=== PATIENT | female | born 1950 | race Caucasian/White ===

== ENCOUNTER 2021-03-14 13:00 | Outpatient (RCR) | payer MEDICARE, OTHER, SELFPAY | END 2021-03-14 14:00 | disposition home or self-care (01) | LOC: HO.PTCHIC 13:00 | PROVIDERS: PCP Internal Medicine; Visit Provider Internal Medicine | DX: M50.30 Other cervical disc degeneration, unspecified cervical region (principal); M51.36 Other intervertebral disc degeneration, lumbar region | CPT/HCPCS: 97110; 97112; 97140; 97162; 97530 ==

== ENCOUNTER → 2021-10-07 09:33 | Outpatient (BNVA) | payer MEDICARE, OTHER, SELFPAY | PROVIDERS: PCP Internal Medicine; Visit Provider Nurse Practitioner Family | DX: G56.03 Carpal tunnel syndrome, bilateral upper limbs (principal); G57.53 Tarsal tunnel syndrome, bilateral lower limbs; G62.9 Polyneuropathy, unspecified; R20.2 Paresthesia of skin; R41.3 Other amnesia | CPT/HCPCS: 99212 ==

== ENCOUNTER 2021-10-28 08:10 | Outpatient (REF) | payer MEDICARE, OTHER, SELFPAY ==
--- NOTE | ~2021-10-28 | MM_ITS ---
EXAMINATION: MM SCREENING DIGITAL BREAST TOMOSYNTHESIS, BILATERAL CLINICAL INFORMATION: Screening. Asymptomatic. The lifetime risk of breast cancer based on the Tyrer-Cuzick Model is 3%. COMPARISON: Mammography: 09/30/2019, 06/03/2017, 06/01/2015 TECHNIQUE: Digital breast tomosynthesis is performed in both the craniocaudal and mediolateral oblique views along with computer-aided detection (CAD). Synthesized 2D images are generated from the tomosynthesis. FINDINGS: There are scattered areas of fibroglandular density (ACR BI-RADS breast composition Category b). There are no significant masses, abnormal calcifications, or other abnormalities. Parenchymal pattern is similar to prior studies. No significant changes. MM/MM tomosynthesis screening BI IMPRESSION: No mammographic evidence of malignancy. ASSESSMENT: BI-RADS 1: Negative RECOMMENDATION: Routine annual mammography screening. This patient's information was entered into a reminder system with a target due date for their next mammogram.
== END 2021-10-28 08:11 | disposition home or self-care (01) ==
LOC: HO.MAMMO 08:10
PROVIDERS: PCP Internal Medicine; Visit Provider Internal Medicine
DX: Z12.31 Encounter for screening mammogram for malignant neoplasm of breast (principal)
CPT/HCPCS: 77063; 77067

== ENCOUNTER → 2022-01-06 10:36 | Outpatient (BNVA) | payer MEDICARE, OTHER, SELFPAY | PROVIDERS: PCP Internal Medicine; Visit Provider Nurse Practitioner Family | DX: G62.9 Polyneuropathy, unspecified (principal); R20.2 Paresthesia of skin; G57.53 Tarsal tunnel syndrome, bilateral lower limbs; R41.3 Other amnesia; Z79.899 Other long term (current) drug therapy | CPT/HCPCS: 99212 ==

== ENCOUNTER → 2022-05-17 14:30 | Outpatient (BNVA) | payer MEDICARE, OTHER, SELFPAY | PROVIDERS: PCP Internal Medicine; Visit Provider Nurse Practitioner Family | DX: G62.9 Polyneuropathy, unspecified (principal); G57.53 Tarsal tunnel syndrome, bilateral lower limbs; R20.2 Paresthesia of skin; J32.9 Chronic sinusitis, unspecified; Z79.899 Other long term (current) drug therapy; Z79.2 Long term (current) use of antibiotics | CPT/HCPCS: 99212 ==

== ENCOUNTER 2022-07-31 11:00 | Outpatient (RCR) | payer MEDICARE, OTHER, SELFPAY | END 2022-08-30 13:51 | disposition home or self-care (01) | LOC: HO.PTCHIC 11:00 | PROVIDERS: PCP Internal Medicine; Visit Provider Internal Medicine | DX: M25.551 Pain in right hip (principal) | CPT/HCPCS: 97033; 97110; 97140; 97161 ==

== ENCOUNTER → 2022-09-13 10:31 | Outpatient (BNVA) | payer MEDICARE, OTHER, SELFPAY | PROVIDERS: PCP Internal Medicine; Visit Provider Nurse Practitioner Family | DX: G62.9 Polyneuropathy, unspecified (principal); R53.83 Other fatigue; D64.9 Anemia, unspecified; Z79.899 Other long term (current) drug therapy | CPT/HCPCS: 99212 ==

== ENCOUNTER 2022-09-15 15:06 | Outpatient (REF) | payer MEDICARE, OTHER, SELFPAY ==
[2022-09-15 16:27] LABS: MANUAL DIFF FLAG NO
[2022-09-15 16:40] LABS: Basophils Absolute Auto 0.1 X10*3/uL (0.0-0.2); Basophils Percent Auto 0.8 % (0-2); Eosinophils Absolute Auto 0.2 X10*3/uL (0.0-0.4); Eosinophils Percent Auto 2.5 % (0-4); Hematocrit 39.1 % (37.0-47.0); Hemoglobin 12.9 g/dl (12.0-16.0); Imm Gran Abs Auto 0.02 X10*3/uL (0.00-0.03); Imm Gran Pct Auto 0.3 % (0.0-0.4); Lymphocytes Absolute Auto 1.7 X10*3/uL (1.2-4.9); Lymphocytes Percent Auto 27.5 % (20-40); Mean Corpuscular Hemoglobin 28.5 pg (27.0-33.0); Mean Corpuscular Volume 86.5 fL (80.0-98.0); Mean Platelet Volume 10.3 fL (9.4-12.3); Monocytes Absolute Auto 0.5 X10*3/uL (0.1-1.2); Monocytes Percent Auto 7.9 % (2-11); Neutrophils Absolute Auto 3.8 x10*3/uL (2.0-8.3); Platelet Count 207 X10*3/uL (160-400); Red Blood Count 4.52 X10*6/uL (4.20-5.50); Red Cell Distribution Width 12.7 % (11.0-16.0); White Blood Count 6.3 X10*3/uL (4.8-10.8)
[2022-09-15 16:58] LABS: Alanine Aminotransferase 18 U/L (0-31); Alkaline Phosphatase 64 U/L (39-117); Anion Gap 9 (12-20); Aspartate Amino Transferase 20 U/L (5-31); Bilirubin Total 0.4 mg/dL (0.0-1.0); Blood Urea Nitrogen 21 mg/dL (9-16); Calcium 8.6 mg/dL (8.4-10.2); Carbon Dioxide 30 mmol/L (22-29); Chloride 105 mmol/L (96-108); Estimated Glomerular Filt Rate > 60; Glucose Random 78 mg/dL (60-115); Iron 92 mcg/dL (30-160); Percent Iron Saturation 34 % (15-50); Potassium 4.4 mmol/L (3.3-5.1); Sodium 140 mmol/L (135-145); Total Iron Binding Capacity 274 mcg/dL (228-428); Total Protein 6.9 g/dL (6.5-8.0); Unsaturated Iron Binding 182 ug/dL
[2022-09-15 17:13] LABS: Ferritin 103 ng/mL (10-250)
[2022-09-19 11:43] LABS: Transferrin 236 mg/dL (188-341)
[2022-09-19 18:54] LABS: Lyme Abs Screen <0.90 index
== END 2022-09-15 15:07 | disposition home or self-care (01) ==
LOC: HO.HMGCLDS 15:06
PROVIDERS: PCP Internal Medicine; Visit Provider Nurse Practitioner Family
DX: G62.9 Polyneuropathy, unspecified (principal); D64.9 Anemia, unspecified; R53.83 Other fatigue
CPT/HCPCS: 36415; 80053; 82728; 83540; 84466; 85025; 86617; 86618

== ENCOUNTER 2022-10-19 11:00 | Outpatient (RCR) | payer MEDICARE, OTHER, SELFPAY | END 2022-10-19 12:15 | disposition home or self-care (01) | LOC: HO.PTCHIC 11:00 | PROVIDERS: PCP Internal Medicine; Visit Provider Internal Medicine | DX: M54.2 Cervicalgia (principal) | CPT/HCPCS: 97014; 97110; 97140; 97161 ==

== ENCOUNTER → 2023-01-12 11:34 | Outpatient (BNVA) | payer MEDICARE, OTHER, SELFPAY | PROVIDERS: PCP Internal Medicine; Visit Provider Nurse Practitioner Family | DX: G57.53 Tarsal tunnel syndrome, bilateral lower limbs (principal); R20.2 Paresthesia of skin; G56.03 Carpal tunnel syndrome, bilateral upper limbs; G47.9 Sleep disorder, unspecified | CPT/HCPCS: 99212 ==

== ENCOUNTER 2023-01-29 13:31 | Outpatient (REF) | payer MEDICARE, OTHER, SELFPAY ==
--- NOTE | ~2023-01-29 | MM_ITS ---
EXAMINATION: MM SCREENING DIGITAL BREAST TOMOSYNTHESIS, BILATERAL CLINICAL INFORMATION: Screening. Asymptomatic. The lifetime risk of breast cancer based on the Tyrer-Cuzick Model is 3%. COMPARISON: Mammography: 10/28/2021, 09/30/2019, 06/05/2017 TECHNIQUE: Digital breast tomosynthesis is performed in both the craniocaudal and mediolateral oblique views along with computer-aided detection (CAD). Synthesized 2D images are generated from the tomosynthesis. Additional left MLO view is provided. FINDINGS: There are scattered areas of fibroglandular density (ACR BI-RADS breast composition Category b). There are no significant masses, abnormal calcifications, or other abnormalities. There is small summation artifact central left breast on one of the MLO views. This resolves on the other MLO projection and no CC correlate. No developing density or architectural abnormality. The axilla and skin contours are unremarkable. MM/MM tomosynthesis screening BI IMPRESSION: No mammographic evidence of malignancy. ASSESSMENT: BI-RADS 2: Benign RECOMMENDATION: Routine annual mammography screening. This patient's information was entered into a reminder system with a target due date for their next mammogram.
== END 2023-01-29 13:32 | disposition home or self-care (01) ==
LOC: HO.MAMMO 13:31
PROVIDERS: PCP Internal Medicine; Visit Provider Internal Medicine
DX: Z12.31 Encounter for screening mammogram for malignant neoplasm of breast (principal)
CPT/HCPCS: 77063; 77067

== ENCOUNTER 2023-03-28 09:00 | Outpatient (RCR) | payer MEDICARE, OTHER, SELFPAY ==
--- NOTE | 2023-01-23 15:43 | MHC.PT.EP ---
[facility] [place] Office [place] Office [place] Office [address] Caden Motley [address] [phone] F: [phone] F: [phone] F: [phone] F: [phone] Physical Therapy Plan of Care Date of Evaluation: Date of Surgery: Diagnosis: POLYNEUROPATHY, TARSAL TUNNEL SYNDROME BILAT-> GAIT AND BALANCE Assessment: 72 YO FEMALE REF TO PT W TARSAL TUNNEL AND POLYNEUROPATHY- SHE HAS ORTHOTICS AND SUPPORTIVE FOOTWEAR AND NOTES HER WEAR PATTERN INCLUDES FRICTION / FABRIC EROSION OVER GREAT TOES. SHE HAS BEEN UNABLE TO FITNESS WALK AT HER REGULAR PACE, DIFFIC W STAIR MANAGEMENT, SQUATTING- LEs SXS WORSE AT NIGHT. OBJECTIVELY, THE Pt HAS HABITUAL GENU VALGUS, PELVIC ASYMMETRY, DECR FLEXIB IN DISTAL LEs, STRENGTH DEFICITS IN LUMBOPELVIC/PROX LEs/ FOOT INTRINSIC MM, AND PAIN IN HER. Pt WOULD BENEFIT FROM A TRIAL OF PT TO DEV A HEP, INCREASE LUMBOPELVIC STABILITY, AND IMPROVE EFFICIENCY OF GAIT ON LEVEL GROUND AND STAIRS. Frequency and Duration: The patient will be seen 2 x WK x 5 WKS Short Term Goals: *IMPROVE MACHELLE GREAT TOE FLEXOR AND FOOT INTRINSIC STRENGTH *DEV HEP FOR LUMBOPELVIC STAB, REDUCE LLI EFFECT *DECR Rt HIP PAIN Halfway Goals: *Pt DEMON EFFICENT GAIT MECH ON LEVEL GROUND AND STAIRS *Pt RESUME REG ADLs AND FUNCT MOB/ FITNESS WALKING EVIDENT IN IMPROVED LEFI (AT EVAL 49/80) *WFL AROM MACHELLE ANKLES , IMPROVED SLS MACHELLE 15 SEC *LEs STRENGTH INCR BY 1/2-> 1 GRADE Treatment Plan: Modalities to reduce pain, spasms and effusion. Manual therapy to restore motion and function. Therapeutic exercise to improve strength and flexibility. Neuromuscular re-education for posture and balance. Therapeutic activities to return to functional activities of daily living. Electronically signed by: CSOUT MONGE,PT Please sign and return to therapist. Thank you for your referral.
--- NOTE | 2023-05-10 08:33 | MHC.PT.DC ---
[facility] [place] Office [place] Office [place] Office [address] Caden Motley 140 [facility] [phone] F: [phone] F: [phone] F: [phone] F: [phone] Physical Therapy Discharge Report Diagnosis: POLYNEUROPATHY, TARSAL TUNNEL SYNDROME BILAT-> GAIT AND BALANCE Date of Surgery: Date of Evaluation: 01/23/23 Date of Discharge: 05/10/23 Treatments to Date: 10 Cancellations to Date: 2 No Shows to Date: 1 Discharge Status: Achieved Goals Improved Function Independent with HEP Discharge Summary: THE Pt DEMON IMPROVED LUMBOPELVIC DISSOCIATION CURRENTLY W ADLs AND HER HEP. SHE HAS A THOROUGH HEP AND HAS BEEN ABLE TO RESUME REG ADLs W/O SXS IMPACTING HER PERFORMANCE. SHE DISPLAYS MORE EFFICIENT GAIT MECHANICS. THE Pt HAS MET HER PT GOALS AT THIS TIME AND IS D/C'D W HER HEP. Electronically signed by: SCOUT MONGE,PT Please sign and return to therapist. Thank you for your referral.
== END 2023-05-10 08:35 | disposition home or self-care (01) ==
LOC: HO.PT 09:00
PROVIDERS: PCP Internal Medicine; Visit Provider Nurse Practitioner Family
DX: G62.9 Polyneuropathy, unspecified (principal); R20.2 Paresthesia of skin; G57.53 Tarsal tunnel syndrome, bilateral lower limbs
CPT/HCPCS: 97110; 97112; 97162; 97530

== ENCOUNTER 2023-04-11 08:13 | Outpatient (AMB) | payer MEDICARE, OTHER, SELFPAY ==
[2023-04-11 08:15] VITALS: BP 112/78; PULSE 67; O2SAT 97; BMI 25.4
--- NOTE | 2023-04-11 08:15 | MHC.OFFVIS ---
Intake Vital Signs 04/11/23 08:15 Height 5 ft 6 in Weight 157 lb 8 oz BMI 25.4 BP 112/78 Blood Pressure Location Rt brachial Position Sitting Pulse 67 Pulse Source Pulse Oximeter Pulse Oximetry (%) 97 Oxygen Delivery Method Room Air Intake Visit Reasons: Follow up for Neuropathy - Confirmed Intake Note: Pt presents as a f/u for neuropathy. I had some problems sunday night I couldn't remember things. I had an MRI sunday night. I have trouble with the Gabapentin so I have to talk to her. Neuropathy is going up higher now, I have shortness of breath. [employer] Required: No Allergies Gadolinium-Containing Contrast Medi Allergy (Intermediate, Verified 04/11/23 08:20) heart racing Latex, Natural Rubber Allergy (Mild, Verified 04/11/23 08:20) unknown amoxicillin [Amoxicillin] Allergy (Unknown, Verified 04/11/23 08:20) ITCH/HIVES erythromycin base [Erythromycin Base] Allergy (Unknown, Verified 04/11/23 08:20) ITCH/HIVES eugenol [Eugenol] Allergy (Unknown, Verified 04/11/23 08:20) HEART RACING/FAINTING levofloxacin [From Levaquin] Allergy (Unknown, Verified 04/11/23 08:20) ITCHING penicillin G [Penicillin G] Allergy (Unknown, Verified 04/11/23 08:20) ITCH/HIVES sulfamethoxazole [From Bactrim] Allergy (Unknown, Verified 04/11/23 08:20) ITCH/HIVES trimethoprim [From Bactrim] Allergy (Unknown, Verified 04/11/23 08:20) ITCH/HIVES epinephrine [Epinephrine] Adverse Reaction (Unknown, Verified 04/11/23 08:20) TACHYCARDIA, FEELING FAINT From Novocain Adverse Reaction (Unknown, Uncoded 04/11/23 08:20) TACHYCARDIA, FEELING FAINT HPI HPI Comments History of Present Illness Details 72-yr-old female presents for f/u visit. Pt endorses the following interval medical history changes: Pt reports a week ago, she had a 20 minute episode of confusion, difficulty thinking, and started to have a headache. She denies any associated facial weakness or speech changes. After the episode, she laid down, was not feel well and weird - not nauseous. No fever. The following day, she connected with her PCP- who ordered a brain MRI- results pending. She notes that she has been having more ehadcahes- a/w phonophobia. The headache is mid-frontal or bifrontal- can feel like a band across her forehead. Using Tylenol prn- helps some. She recalls that few years ago, she had a 1 week episode of aphasia- that self-resolved. She did retry the Gabapentin 200mg- but caused significant am drowsiness- slept through her alarm and was late for an 11am appt. PT was helpful for her balance. She will do PT for pelvic training and continues to have right aching groin/buttock pain when walking. She did also see ortho for this. Her BLE neuropathic pain has moved up the legs to the knees. [facility] Medical History Anemia H/O malignant neoplasm of thyroid Surgical History H/O total hysterectomy History of knee replacement Hx of appendectomy Hx of cholecystectomy Family History (Updated 04/11/23 @ 08:23 by Lauryn Canales CMA) Father Myocardial infarction Stroke Mother Cancer Brother Diabetes Brother Diabetes Social History (Updated 04/11/23 @ 08:24 by Lauryn Canales CMA) Alcohol intake: current Alcohol intake frequency: 0-2 drinks per day Patient Tobacco Use Status: Never used Tobacco Review of Systems Const All systems reviewed & are unremarkable except as noted in HPI and below Physical Exam Vital Signs: Last Vital Signs Pulse 67 04/11/23 08:15 BP 112/78 04/11/23 08:15 Pulse Ox 97 04/11/23 08:15 Oxygen Delivery Method Room Air 04/11/23 08:15 BMI result Body Mass Index 25.4 Const General: cooperative and no acute distress Orientation/consciousness: patient oriented x3 HEENT Head: Yes normocephalic Resp Effort & Inspection: normal respiratory effort and able to speak in complete sentences Neuro General: patient oriented x3, gait normal and CN's II-XI intact bilaterally Cognition (Neuro): normal cognition Motor exam (neuro): 5/5 motor strength present throughout Deep tendon reflexes (DTR's): Right triceps reflex intensity grade: 2+, Left triceps reflex intensity grade: 2+, Rt Biceps (C5, C6): 2+, Left biceps reflex intensity grade: 2+, Right brachioradialis reflex intensity grade: 2+, Left brachioradialis reflex intensity grade: 2+, Right patellar reflex intensity grade: 2+ and Left patellar reflex intensity grade: 2+ Psych Appearance: grossly normal Mental Status: mental status grossly normal Speech and movement: Normal speech and movement present Affect: normal affect Attitude: cooperative Thought process: Normal thought process present Thought content: Normal thought content present Insight: Good insight present (Psych) Judgement: Good judgement present (Psych) Assessment & Plan Assessment & Plan (1) Altered mental status: Comment: Transient 20 minutes of confusion- ? headache onset, ? 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 Will review when available. No focal neuro deficits appreciated today. BP- normotensive. If no interval MRI changes, no evidence of CVA- could consider trying a gepant for headache (? migraine) management. May use Tylenol prn for headache. Consider trying to use OTC B2, Mag, migraine cooling cap- info given to pt. Continue Fluvoxamine 50 mg qhs- for anxiety. Continue Xanax 0.5-1mg qhs, may take 1 extra tab per day prn. Hold Gabapentin 100-mg not effective, 200mg not tolerated. Offered pregabalin- pt decliens. Offered ortho referral for trasal tunnel syndrome- pt declines. Continue PT exercises. Monitor nocturnal body pains- RLS s/s- could consider Lyrica, Horizant in f/u. Previously failed? Cymbalta. f/u in 3-4 months or sooner prn Coding Level of Care Code Est Pt Level 4 (16188) Diagnoses Altered mental status R41.82 Polyneuropathy G62.9 Tarsal tunnel syndrome, bilateral G57.53 Headache R51.9
== END 2023-04-11 09:00 | disposition home or self-care (01) ==
PROVIDERS: PCP Internal Medicine; Visit Provider Nurse Practitioner Family
DX: R41.82 Altered mental status, unspecified (principal); G62.9 Polyneuropathy, unspecified; G57.53 Tarsal tunnel syndrome, bilateral lower limbs; R51.9 Headache, unspecified
CPT/HCPCS: 99214

== ENCOUNTER → 2023-04-11 08:13 | Outpatient (BNVA) | payer MEDICARE, OTHER, SELFPAY | PROVIDERS: PCP Internal Medicine; Visit Provider Nurse Practitioner Family | DX: G62.9 Polyneuropathy, unspecified (principal); G57.53 Tarsal tunnel syndrome, bilateral lower limbs; R41.82 Altered mental status, unspecified; R51.9 Headache, unspecified | CPT/HCPCS: 99212 ==

== ENCOUNTER 2023-07-17 08:36 | Outpatient (AMB) | payer MEDICARE, OTHER, SELFPAY ==
--- NOTE | 2023-07-17 08:43 | MHC.OFFVIS ---
Intake Vital Signs 07/17/23 08:45 Height 5 ft 6 in Weight 159 lb BMI 25.7 BP 124/72 Blood Pressure Location Rt brachial Position Sitting Pulse 60 Pulse Source Pulse Oximeter Pulse Oximetry (%) 98 Oxygen Delivery Method Room Air Intake Visit Reasons: 3m Follow up Neuropathy-Confirmed Intake Note: Patient present for 3 month follow up. Patient states I just want to ask her about the pain going up to my knees now. Allergies Gadolinium-Containing Contrast Medi Allergy (Intermediate, Verified 07/17/23 08:46) heart racing Latex, Natural Rubber Allergy (Mild, Verified 07/17/23 08:46) unknown amoxicillin [Amoxicillin] Allergy (Unknown, Verified 07/17/23 08:46) ITCH/HIVES erythromycin base [Erythromycin Base] Allergy (Unknown, Verified 07/17/23 08:46) ITCH/HIVES eugenol [Eugenol] Allergy (Unknown, Verified 07/17/23 08:46) HEART RACING/FAINTING levofloxacin [From Levaquin] Allergy (Unknown, Verified 07/17/23 08:46) ITCHING penicillin G [Penicillin G] Allergy (Unknown, Verified 07/17/23 08:46) ITCH/HIVES sulfamethoxazole [From Bactrim] Allergy (Unknown, Verified 07/17/23 08:46) ITCH/HIVES trimethoprim [From Bactrim] Allergy (Unknown, Verified 07/17/23 08:46) ITCH/HIVES epinephrine [Epinephrine] Adverse Reaction (Unknown, Verified 07/17/23 08:46) TACHYCARDIA, FEELING FAINT From Novocain Adverse Reaction (Unknown, Uncoded 07/17/23 08:46) TACHYCARDIA, FEELING FAINT Medication List - Last Reconciled 07/17/23 by JEREMY Russell albuterol sulfate 90 mcg/actuation (ProAir HFA) 2 puffs inhalation Q6H PRN alprazolam (Xanax) 0.5 - 1 mg (1 - 2 x 0.5 mg) PO BEDTIME PRN 30 days cyanocobalamin (vitamin B-12) 1,000 mcg PO DAILY epinephrine 0.3 mg IM Q4H PRN esomeprazole magnesium (Nexium) 20 mg PO BEDTIME famotidine 20 mg PO DAILY fluticasone propionate 50 mcg/actuation (Flonase Allergy Relief) 1 spray intranasal DAILY fluvoxamine 50 mg PO DAILY gabapentin 100 - 300 mg (1 - 3 x 100 mg) PO BEDTIME 90 days ketotifen fumarate 0.025%(0.035%) (Allergy Eye (ketotifen)) 1 drp ophthalmic (eye) BID levocetirizine (Xyzal) 5 mg PO DAILY levothyroxine (Synthroid) 88 mcg PO DAILY metoprolol succinate ER 50 mg PO DAILY tretinoin 0.05% 1 appl topical BEDTIME HPI HPI Comments History of Present Illness Details 73-yr-old female presents for f/u visit. Pt reports she had a recent stress test and her recent lipid profile and HgA1C (6%) were elevated- has f/u w/ Dr Vaca to discuss. She thinks her right carpal tunnel syndrome is getting worse- pt thinks maybe she will have to have a CTS repair next year. She still has random sharp pains. She is having burning BLE pain, moving up the leg. No weakness. Feeling more tired overall- wonders if this is r/t mood and stress. Her dtr who lives w/ her has agreed to start therapy. Pt reports that she has been having nights where she does not sleep at all, but then other nights she can sleep well. Denies any episodes of altered mental status. No longer taking Gabapentin- believes it causes confusion. [facility] Medical History Anemia H/O malignant neoplasm of thyroid Surgical History Hx of cholecystectomy Hx of appendectomy History of knee replacement H/O total hysterectomy Family History Father Myocardial infarction Stroke Mother Cancer Brother Diabetes Brother Diabetes Social History Alcohol intake: current Alcohol intake frequency: 0-2 drinks per day Patient Tobacco Use Status: Never used Tobacco Review of Systems Const All systems reviewed & are unremarkable except as noted in HPI and below Physical Exam Vital Signs: Last Vital Signs Pulse 60 07/17/23 08:45 BP 124/72 07/17/23 08:45 Pulse Ox 98 07/17/23 08:45 Oxygen Delivery Method Room Air 07/17/23 08:45 BMI result Body Mass Index 25.7 Const General: cooperative and no acute distress Orientation/consciousness: patient oriented x3 HEENT Head: Yes normocephalic Resp Effort & Inspection: normal respiratory effort and able to speak in complete sentences Neuro General: patient oriented x3, gait normal and CN's II-XI intact bilaterally Cognition (Neuro): normal cognition Motor exam (neuro): 5/5 motor strength present throughout Psych Appearance: grossly normal Mental Status: mental status grossly normal Speech and movement: Normal speech and movement present Affect: normal affect Attitude: cooperative Thought process: Normal thought process present Thought content: Normal thought content present Insight: Good insight present (Psych) Judgement: Good judgement present (Psych) Assessment & Plan Assessment & Plan (1) 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 Likely RLS. Code(s): R20.2 - Paresthesia of skin Plan Advised to monitor diet and f/u w/ Dr Vaca r/t elevated lipids, borderline HgA1C, and stress test. Brain MRI- scattered nonspecific periventricular and subcortical white matter cahnges, likely chronic microangiopathic changes. Monitor headaches. May use Tylenol prn for headache. Continue Fluvoxamine 50 mg qhs- for anxiety. Continue Xanax 0.5-1mg qhs, may take 1 extra tab per day prn. Trial Alpha-Lipoic acid 600mg qd or Nervive 1 tab per day. Continue PT exercises. Monitor nocturnal body pains- RLS s/s- could consider Lyrica, Horizant in f/u. Future consideration- ortho referral for carpal/tarsal tunnel syndrome- pt previously declined. Previously failed? Cymbalta, Gabapentin. ? f/u in 4 months or sooner prn Medications: New alpha lipoic acid 600 mg PO DAILY 30 days 30 tabs 6RF Refilled alprazolam (Xanax) and may take 1 extra tab per day prn anxiety 0.5 - 1 mg (1 - 2 x 0.5 mg) PO BEDTIME 30 days PRN 90 tabs 3RF anxiety Discontinued gabapentin Discontinued Reason: Doctor's Order 100 - 300 mg (1 - 3 x 100 mg) PO BEDTIME 90 days 270 caps 1RF Coding Level of Care Code Est Pt Level 4 (91382) Diagnoses Polyneuropathy G62.9 Bilateral carpal tunnel syndrome G56.03 Paresthesia R20.2
[2023-07-17 08:45] VITALS: BP 124/72; PULSE 60; O2SAT 98; BMI 25.7
== END 2023-07-17 09:22 | disposition home or self-care (01) ==
PROVIDERS: PCP Internal Medicine; Visit Provider Nurse Practitioner Family
DX: G62.9 Polyneuropathy, unspecified (principal); G56.03 Carpal tunnel syndrome, bilateral upper limbs; R20.2 Paresthesia of skin
CPT/HCPCS: 99214

== ENCOUNTER → 2023-07-17 08:36 | Outpatient (BNVA) | payer MEDICARE, OTHER, SELFPAY | PROVIDERS: PCP Internal Medicine; Visit Provider Nurse Practitioner Family | DX: G62.9 Polyneuropathy, unspecified (principal); G56.03 Carpal tunnel syndrome, bilateral upper limbs; R20.2 Paresthesia of skin | CPT/HCPCS: 99212 ==

== ENCOUNTER 2023-09-18 09:00 | Outpatient (RCR) | payer MEDICARE, OTHER, SELFPAY | END 2023-10-18 09:09 | disposition home or self-care (01) | LOC: HO.PT 09:00 | PROVIDERS: PCP Internal Medicine; Visit Provider Internal Medicine Gastroenterology | DX: R10.31 Right lower quadrant pain (principal) | CPT/HCPCS: 97033; 97110; 97112; 97140; 97162 ==

== ENCOUNTER 2024-01-09 10:59 | Outpatient (AMB) | payer MEDICARE, OTHER, SELFPAY ==
--- NOTE | 2024-01-09 11:03 | MHC.OFFVIS ---
Vital Signs 01/09/24 11:04 BP 120/72 Blood Pressure Location Rt brachial Position Sitting Pulse 78 Pulse Source Pulse Oximeter Pulse Oximetry (%) 98 Oxygen Delivery Method Room Air Intake Visit Reasons: 6 mnts f/u for Neuropathy-Conf Intake Note: Patient presents for 6 month follow up neuropathy. patient has some questions for provider. Allergies Gadolinium-Containing Contrast Medi Allergy (Intermediate, Verified 01/09/24 11:09) heart racing Latex, Natural Rubber Allergy (Mild, Verified 01/09/24 11:09) unknown amoxicillin [Amoxicillin] Allergy (Unknown, Verified 01/09/24 11:09) ITCH/HIVES erythromycin base [Erythromycin Base] Allergy (Unknown, Verified 01/09/24 11:09) ITCH/HIVES eugenol [Eugenol] Allergy (Unknown, Verified 01/09/24 11:09) HEART RACING/FAINTING levofloxacin [From Levaquin] Allergy (Unknown, Verified 01/09/24 11:09) ITCHING penicillin G [Penicillin G] Allergy (Unknown, Verified 01/09/24 11:09) ITCH/HIVES sulfamethoxazole [From Bactrim] Allergy (Unknown, Verified 01/09/24 11:09) ITCH/HIVES trimethoprim [From Bactrim] Allergy (Unknown, Verified 01/09/24 11:09) ITCH/HIVES epinephrine [Epinephrine] Adverse Reaction (Unknown, Verified 01/09/24 11:09) TACHYCARDIA, FEELING FAINT From Novocain Adverse Reaction (Unknown, Uncoded 01/09/24 11:09) TACHYCARDIA, FEELING FAINT Medication List - Last Reconciled 01/09/24 by JEREMY Russell albuterol sulfate 90 mcg/actuation (ProAir HFA) 2 puffs inhalation Q6H PRN alpha lipoic acid 600 mg PO DAILY 30 days alprazolam (Xanax) 0.5 - 1 mg (1 - 2 x 0.5 mg) PO BEDTIME PRN 30 days cyanocobalamin (vitamin B-12) 1,000 mcg PO DAILY epinephrine 0.3 mg IM Q4H PRN esomeprazole magnesium (Nexium) 20 mg PO BEDTIME famotidine 20 mg PO DAILY fluticasone propionate 50 mcg/actuation (Flonase Allergy Relief) 1 spray intranasal DAILY fluvoxamine 50 mg PO DAILY hydralazine 10 mg PO DAILY ketotifen fumarate 0.025%(0.035%) (Allergy Eye (ketotifen)) 1 drp ophthalmic (eye) BID levocetirizine (Xyzal) 5 mg PO DAILY levothyroxine (Synthroid) 88 mcg PO DAILY metoprolol succinate ER 50 mg PO DAILY tretinoin 0.05% 1 appl topical BEDTIME HPI Comments Details: 73-yr-old female presents for f/u visit. Pt reports since the last visit, She started a high fiber diet to address her prediabetes and elevated lipid levels. She had an intentional weight loss. However, then she started having loose stools, abdominal cramps, and further unintentional wt loss. She was tx'd w/ po Flagyl- which she did not tolerate. She has seen GI and has had a GI work-up- so far unremarkable other than diverticulosis. She is scheduled for a colonoscopy. Also her TSH decreased from 1.33 at [facility] in Sep 2023 to 0.13 at [facility]- and her Levothyroxine dose has been adjusted. Pt shared her lab results from GI- vit A, B12, folate, ferritin, Mag CBC, CMP, lipase- NL. States Dr Vaca did just start her on hydralazine. She is not sleeping as well, having nightmares of [employer], waking up sweaty. She is very fatigued. She states her restless legs are a bit better. However, she notices that if someone touches her, she has a cold sensation overcome her. 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 She feels cold all the time. Her hands may feel more bothersome weakness and discomfort in her hands. [facility] Medical History Anemia H/O malignant neoplasm of thyroid Surgical History Hx of cholecystectomy Hx of appendectomy History of knee replacement H/O total hysterectomy Family History Father Myocardial infarction Stroke Mother Cancer Brother Diabetes Brother Diabetes Social History Alcohol intake: current Alcohol intake frequency: 0-2 drinks per day Patient Tobacco Use Status: Never used Tobacco Physical Exam Vital Signs: Last Vital Signs Pulse 78 01/09/24 11:04 BP 120/72 01/09/24 11:04 Pulse Ox 98 01/09/24 11:04 Oxygen Delivery Method Room Air 01/09/24 11:04 Const General: cooperative and no acute distress Orientation/consciousness: patient oriented x3 Resp Effort & Inspection: normal respiratory effort and able to speak in complete sentences Neuro General: patient oriented x3 Cranial nerves: Yes CN's II-XII intact bilaterally Cognition (Neuro): normal cognition Psych Appearance: grossly normal Mental Status: mental status grossly normal Speech and movement: Normal speech and movement present Affect: normal affect Attitude: cooperative Assessment & Plan Assessment & Plan (1) Paresthesia: Comment: generalized, at rest/night. Likely RLS. 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 May use Tylenol prn for headache. ? Continue Fluvoxamine 50 mg qhs- for anxiety. Continue Xanax 0.5-1mg qhs, may take 1 extra tab per day prn. ? She never started Alpha-Lipoic acid 600mg qd or Nervive 1 tab per day- would hold as this time, as there is risk for side effects. Continue PT exercises. Monitor nocturnal body pains- RLS s/s- could consider Lyrica, Horizant in f/u. When her GI s/s and TSH has stabilized- ortho referral for carpal/tarsal tunnel syndrome.. Previously failed?Cymbalta, Gabapentin. ? f/u in 6 months or sooner prn Coding Level of Care Code Est Pt Level 4 (36302) Diagnoses Paresthesia R20.2 Bilateral carpal tunnel syndrome G56.03 Sleep difficulties G47.9 Polyneuropathy G62.9
[2024-01-09 11:04] VITALS: BP 120/72; PULSE 78; O2SAT 98
== END 2024-01-09 12:15 | disposition home or self-care (01) ==
PROVIDERS: PCP Internal Medicine; Visit Provider Nurse Practitioner Family
DX: R20.2 Paresthesia of skin (principal); G56.03 Carpal tunnel syndrome, bilateral upper limbs; G47.9 Sleep disorder, unspecified; G62.9 Polyneuropathy, unspecified
CPT/HCPCS: 99214

== ENCOUNTER → 2024-01-09 10:59 | Outpatient (BNVA) | payer MEDICARE, OTHER, SELFPAY | PROVIDERS: PCP Internal Medicine; Visit Provider Nurse Practitioner Family | DX: G47.9 Sleep disorder, unspecified (principal); G62.9 Polyneuropathy, unspecified; G56.03 Carpal tunnel syndrome, bilateral upper limbs; R20.2 Paresthesia of skin | CPT/HCPCS: 99212 ==

== ENCOUNTER 2024-02-04 11:13 | Outpatient (REF) | payer MEDICARE, OTHER, SELFPAY ==
--- NOTE | ~2024-02-04 | MM_ITS ---
EXAMINATION: MM SCREENING DIGITAL BREAST TOMOSYNTHESIS, BILATERAL CLINICAL INFORMATION: Screening. Asymptomatic. COMPARISON: Mammography: 01/29/2023, 10/28/2021, 09/30/2019, 06/05/2017. TECHNIQUE: Digital breast tomosynthesis is performed in both the craniocaudal and mediolateral oblique views along with computer-aided detection (CAD). Synthesized 2D images are generated from the tomosynthesis. An additional right MLO view was submitted. FINDINGS: There are scattered areas of fibroglandular density (ACR BI-RADS breast composition Category b). There are no suspicious masses, suspicious grouped calcifications, or areas of architectural distortion in either breast. The parenchymal pattern is stable from prior exams. No suspicious skin or axillary abnormalities. MM/MM tomosynthesis screening BI IMPRESSION: No mammographic evidence of malignancy. ASSESSMENT: BI-RADS BI-RADS 1 - Negative RECOMMENDATION: Routine annual mammography screening. 1 year F/U This examination should not preclude the clinical evaluation of a suspicious palpable abnormality. This patient's information was entered into a reminder system with a target due date for their next mammogram.
== END 2024-02-04 11:14 | disposition home or self-care (01) ==
LOC: HO.MAMMO 11:13
PROVIDERS: PCP Internal Medicine; Visit Provider Internal Medicine
DX: Z12.31 Encounter for screening mammogram for malignant neoplasm of breast (principal)
CPT/HCPCS: 77063; 77067

== ENCOUNTER → 2024-02-04 11:15 | Outpatient (BNV) | payer MEDICARE, OTHER, SELFPAY | PROVIDERS: PCP Internal Medicine; Visit Provider Radiology Diagnostic Radiology | DX: Z12.31 Encounter for screening mammogram for malignant neoplasm of breast (principal) | CPT/HCPCS: 77063; 77067 ==

== ENCOUNTER 2024-07-16 10:00 | Outpatient (AMB) | payer MEDICARE, OTHER, SELFPAY ==
[2024-07-16 10:03] VITALS: BP 138/82; BMI 20.9
--- NOTE | 2024-07-16 10:03 | MHC.OFFVIS ---
Vital Signs 07/16/24 10:03 Height 5 ft 6 in Weight 129 lb 4 oz BMI 20.9 BP 138/82 Blood Pressure Location Rt brachial Position Sitting Intake Visit Reasons: 6 Month F/U Intake Note: Patient presents for 6 month follow up.I have chronic chills always feeling cold. restless legs have gotten better. Allergies Gadolinium-Containing Contrast Medi Allergy (Intermediate, Verified 07/16/24 10:12) heart racing Latex, Natural Rubber Allergy (Mild, Verified 07/16/24 10:12) unknown amoxicillin [Amoxicillin] Allergy (Unknown, Verified 07/16/24 10:12) ITCH/HIVES erythromycin base [Erythromycin Base] Allergy (Unknown, Verified 07/16/24 10:12) ITCH/HIVES eugenol [Eugenol] Allergy (Unknown, Verified 07/16/24 10:12) HEART RACING/FAINTING levofloxacin [From Levaquin] Allergy (Unknown, Verified 07/16/24 10:12) ITCHING penicillin G [Penicillin G] Allergy (Unknown, Verified 07/16/24 10:12) ITCH/HIVES sulfamethoxazole [From Bactrim] Allergy (Unknown, Verified 07/16/24 10:12) ITCH/HIVES trimethoprim [From Bactrim] Allergy (Unknown, Verified 07/16/24 10:12) ITCH/HIVES epinephrine [Epinephrine] Adverse Reaction (Unknown, Verified 07/16/24 10:12) TACHYCARDIA, FEELING FAINT From Novocain Adverse Reaction (Unknown, Uncoded 07/16/24 10:12) TACHYCARDIA, FEELING FAINT HPI Comments Details: 74-yr-old female presents for f/u visit of neuralgia and RLS.. Since the last visit, she lost her . She is trying to cope- having varying emotions. She notes changes in her roles/responsibilities, though her son who [place] is helping. She does think maybe she should see a grief counselor. Using Xanax prn for anxiety. She has continued to lose weight. She had f/u CT and colonoscopy and which per pt showed tortuous colon. Was advised to avoid all fiber, just liquid diet for now. GI was wanted her to re-try Flagyl. She had recent abd CT, which showed possible diverticulitis. She has been on a liquid diet. She believes her thyroid level is stabilized. She is noticing some right wrist pain, swelling, and some weakness triggered by trying to clean out the books in her house- still uses her wrist splints at night. She states she is sleeping ok- except when she has to void. She states her restless legs are still a bit better. However, she notices that if she or someone touches her, she has a cold sensation/shivers overcome her. 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 Has not been taking her Xysail Her feet are always cold. PFSH Medical History Anemia H/O malignant neoplasm of thyroid Surgical History Hx of cholecystectomy Hx of appendectomy History of knee replacement H/O total hysterectomy Family History Father Myocardial infarction Stroke Mother Cancer Brother Diabetes Brother Diabetes Social History Alcohol intake: current Alcohol intake frequency: 0-2 drinks per day Patient Tobacco Use Status: Never used Tobacco Physical Exam Vital Signs: Last Vital Signs BP 138/82 07/16/24 10:03 BMI result Body Mass Index 20.9 Const General: cooperative and no acute distress Orientation/consciousness: patient oriented x3 Resp Effort & Inspection: normal respiratory effort and able to speak in complete sentences Neuro Other: Right distal forearm, mild swelling and tenderness w/o erythema/discoloration. RUE MS 5/5. General: patient oriented x3 Cranial nerves: Yes CN's II-XII intact bilaterally Cognition (Neuro): normal cognition Psych Appearance: grossly normal Mental Status: mental status grossly normal Speech and movement: Normal speech and movement present Affect: normal affect Attitude: cooperative Assessment & Plan Assessment & Plan (1) Paresthesia: Comment: generalized, at rest/night. Likely RLS. 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 Continue Fluvoxamine 50 mg qhs- for anxiety. Continue Xanax 0.5-1mg qhs, may take 1 extra tab per day prn. ? For right wrist pain- Likely overuse injury. Trial diclofenac 1% gel QID prn. Use carpal tunnel splints qhs and prn during the day. Advsied to rest, ice, and elevate RUE. 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 When her GI s/s and TSH has stabilized- ortho referral for carpal/tarsal tunnel syndrome.. Future considerations: Alpha-Lipoic acid, Lyrica, Horizant in f/u. Previous trails: ?Cymbalta, Gabapentin. For headaches: May use Tylenol prn for headache. ? f/u in 4-6 months or sooner prn Medications: New diclofenac sodium 1% (Voltaren Arthritis Pain) apply to right wrist 4 grams topical QID PRN 100 grams 2RF pain 7 days Refilled alprazolam (Xanax) and may take 1 extra tab per day prn anxiety 0.5 - 1 mg (1 - 2 x 0.5 mg) PO BEDTIME PRN 90 tabs 3RF anxiety 30 days Coding Level of Care Code Est Pt Level 4 (92629) Diagnoses Paresthesia R20.2 Bilateral carpal tunnel syndrome G56.03 Sleep difficulties G47.9 Polyneuropathy G62.9
== END 2024-07-16 11:11 | disposition home or self-care (01) ==
LOC: HO.HSMS 10:01
PROVIDERS: PCP Internal Medicine; Visit Provider Nurse Practitioner Family
DX: R20.2 Paresthesia of skin (principal); G56.03 Carpal tunnel syndrome, bilateral upper limbs; G47.9 Sleep disorder, unspecified; G62.9 Polyneuropathy, unspecified
CPT/HCPCS: 99214

== ENCOUNTER → 2024-07-16 10:00 | Outpatient (BNVA) | payer MEDICARE, OTHER, SELFPAY | PROVIDERS: PCP Internal Medicine; Visit Provider Nurse Practitioner Family | DX: G25.81 Restless legs syndrome (principal); G62.9 Polyneuropathy, unspecified; R20.2 Paresthesia of skin; G56.03 Carpal tunnel syndrome, bilateral upper limbs | CPT/HCPCS: 99212 ==

== ENCOUNTER 2025-02-10 13:56 | Outpatient (AMB) | payer MEDICARE, OTHER, SELFPAY ==
[2025-02-10 14:07] VITALS: BP 120/60; PULSE 67; O2SAT 96; BMI 21.9
--- NOTE | 2025-02-10 14:07 | MHC.OFFVIS ---
Vital Signs 02/10/25 14:07 Height 5 ft 6 in Weight 136 lb BMI 21.9 BP 120/60 Blood Pressure Location Lt brachial Pulse 67 Pulse Source Pulse Oximeter Pulse Oximetry (%) 96 Oxygen Delivery Method Room Air Intake Visit Reasons: follow up Mailing Clerk Required: No Allergies Gadolinium-Containing Contrast Medi Allergy (Intermediate, Verified 02/10/25 14:08) heart racing Latex, Natural Rubber Allergy (Mild, Verified 02/10/25 14:08) unknown amoxicillin [Amoxicillin] Allergy (Unknown, Verified 02/10/25 14:08) ITCH/HIVES erythromycin base [Erythromycin Base] Allergy (Unknown, Verified 02/10/25 14:08) ITCH/HIVES eugenol [Eugenol] Allergy (Unknown, Verified 02/10/25 14:08) HEART RACING/FAINTING levofloxacin [From Levaquin] Allergy (Unknown, Verified 02/10/25 14:08) ITCHING penicillin G [Penicillin G] Allergy (Unknown, Verified 02/10/25 14:08) ITCH/HIVES sulfamethoxazole [From Bactrim] Allergy (Unknown, Verified 02/10/25 14:08) ITCH/HIVES trimethoprim [From Bactrim] Allergy (Unknown, Verified 02/10/25 14:08) ITCH/HIVES epinephrine [Epinephrine] Adverse Reaction (Unknown, Verified 02/10/25 14:08) TACHYCARDIA, FEELING FAINT From Novocain Adverse Reaction (Unknown, Uncoded 07/16/24 10:12) TACHYCARDIA, FEELING FAINT Medication List - Last Reconciled 02/10/25 by JEREMY Russell albuterol sulfate 90 mcg/actuation (ProAir HFA) 2 puffs inhalation Q6H PRN alprazolam (Xanax) 0.5 - 1 mg (1 - 2 x 0.5 mg) PO BEDTIME PRN 30 days epinephrine 0.3 mg IM Q4H PRN famotidine 20 mg PO DAILY fluticasone propionate 50 mcg/actuation (Flonase Allergy Relief) 1 spray intranasal DAILY fluvoxamine 50 mg PO DAILY hydralazine 10 mg PO DAILY levocetirizine (Xyzal) 5 mg PO DAILY levothyroxine (Synthroid) 88 mcg PO DAILY metoprolol succinate ER 50 mg PO DAILY tretinoin 0.05% 1 appl topical BEDTIME HPI Comments Details: 74-yr-old female presents for f/u visit of neuralgia and RLS.. Since her passed last fall, she states she was doing ok, she completed the necessary paperwork and then traveled to [place] for 5 weeks over the winter holidays. However, more recently she is finding herself more stressed. She is procrastinating going to sleep, checking her phone, checking the news or financial markets. She is seeing a therapist, but is thinking about switching to a new therapist, to optimize her therapy sessions. She has not been taking her B-12 or iron as she felt she did not need this anymore. In October, she started having more bouts of sweating palms and feet, nervousness, and increased acute episodes of cognitive fogginess. At that time, she had her TSH recehecke, and the TSH was 0.2 L. Her thyroid med was decreased by 1/2 tab per week- levothyroxine now on 88mcg 6 days per week. Since, she feels she has not returned to baseline. She is still having cognitive fogginess- looking in the wrong draw, word swapping. She is starting to have increased burning pains in bilateral feet, more so than in her hands. She also has been having deep pressure headaches in frontal region and ears, a/w increased difficulty concentrating. She is no longer seeing windshield repair technician, as her windshield repair technician left the practice. She is f/b GI- abd CT, which showed possible diverticulitis, per pt, she has advised her to trya low FOD mat diet. She did have a cardiac work-up- nuclear stress test- per pt was normal. [facility] Medical History Anemia H/O malignant neoplasm of thyroid Surgical History Hx of cholecystectomy Hx of appendectomy History of knee replacement H/O total hysterectomy Family History Father Myocardial infarction Stroke Mother Cancer Brother Diabetes Brother Diabetes Social History Alcohol intake: current Alcohol intake frequency: 0-2 drinks per day Patient Tobacco Use Status: Never used Tobacco Physical Exam Vital Signs: Last Vital Signs Pulse 67 02/10/25 14:07 BP 120/60 02/10/25 14:07 Pulse Ox 96 02/10/25 14:07 Oxygen Delivery Method Room Air 02/10/25 14:07 BMI result Body Mass Index 21.9 Const General: cooperative and no acute distress Orientation/consciousness: patient oriented x3 Resp Effort & Inspection: normal respiratory effort and able to speak in complete sentences Neuro General: patient oriented x3 Cranial nerves: Yes CN's II-XII intact bilaterally Cognition (Neuro): normal cognition Psych Appearance: grossly normal Mental Status: mental status grossly normal Speech and movement: Normal speech and movement present Affect: normal affect Attitude: cooperative Assessment & Plan Assessment & Plan (1) Paresthesia: Comment: generalized, at rest/night. Likely RLS. 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 Lab slips given to patient-she will do at a [facility] lab. Continue psychotherapy- discussed that it is okay to try seeing a different therapist, if her current therapy is not as effective as she would hope. Continue Fluvoxamine 50 mg qhs- for anxiety. Continue Xanax 0.5-1mg qhs, may take 1 extra tab per day prn. ? For neuralgia, BLE pain, CTS: Check labs to assess status of B12 and iron levels. Use carpal tunnel splints while sleeping as needed. Continue PT Try simple foot/ankle exercises- list of exercises given to patient. We will request podiatry consult for known history of tarsal tunnel syndrome. Patient may benefit from trying an allergy/MAST cell d/o tx, such as doxepin- she will consider upon return from upcoming trip to [facility]. Future considerations: Doxepin, Alpha-Lipoic acid, Lyrica, Horizant in f/u. Ortho consult for carpal tunnel syndrome. Previous trails: ?Cymbalta, Gabapentin. For headaches: May use Tylenol prn for headache. ? f/u in 4-6 months or sooner prn Orders: Orders Comprehensive Met. Panel Today D64.9 - Anemia, unspecified, G57.53 - Tarsal tunnel syndrome, bilateral lower limbs, G62.9 - Polyneuropathy, unspecified, R41.3 - Other amnesia, R51.9 - Headache, unspecified, R53.83 - Other fatigue Vitamin B12 and Folate Today D64.9 - Anemia, unspecified, G57.53 - Tarsal tunnel syndrome, bilateral lower limbs, G62.9 - Polyneuropathy, unspecified, R41.3 - Other amnesia, R51.9 - Headache, unspecified, R53.83 - Other fatigue Vitamin B1 Today D64.9 - Anemia, unspecified, G57.53 - Tarsal tunnel syndrome, bilateral lower limbs, G62.9 - Polyneuropathy, unspecified, R41.3 - Other amnesia, R51.9 - Headache, unspecified, R53.83 - Other fatigue Vitamin D 25-OH Total Today M85.80 - Other specified disorders of bone density and structure, unspecified site, R53.83 - Other fatigue Methylmalonic Acid Today D64.9 - Anemia, unspecified, G57.53 - Tarsal tunnel syndrome, bilateral lower limbs, G62.9 - Polyneuropathy, unspecified, R41.3 - Other amnesia, R51.9 - Headache, unspecified, R53.83 - Other fatigue Complete Blood Count Auto Diff Today D64.9 - Anemia, unspecified, G57.53 - Tarsal tunnel syndrome, bilateral lower limbs, G62.9 - Polyneuropathy, unspecified, R41.3 - Other amnesia, R51.9 - Headache, unspecified, R53.83 - Other fatigue Folate Today D64.9 - Anemia, unspecified, G57.53 - Tarsal tunnel syndrome, bilateral lower limbs, G62.9 - Polyneuropathy, unspecified, R41.3 - Other amnesia, R51.9 - Headache, unspecified, R53.83 - Other fatigue Ferritin Today D64.9 - Anemia, unspecified, G57.53 - Tarsal tunnel syndrome, bilateral lower limbs, G62.9 - Polyneuropathy, unspecified, R41.3 - Other amnesia, R51.9 - Headache, unspecified, R53.83 - Other fatigue IRON PROFILE Today D64.9 - Anemia, unspecified, G57.53 - Tarsal tunnel syndrome, bilateral lower limbs, G62.9 - Polyneuropathy, unspecified, R41.3 - Other amnesia, R51.9 - Headache, unspecified, R53.83 - Other fatigue C Reactive Protein Today D64.9 - Anemia, unspecified, G57.53 - Tarsal tunnel syndrome, bilateral lower limbs, G62.9 - Polyneuropathy, unspecified, R41.3 - Other amnesia, R51.9 - Headache, unspecified, R53.83 - Other fatigue Vitamin B6 Today D64.9 - Anemia, unspecified, G57.53 - Tarsal tunnel syndrome, bilateral lower limbs, G62.9 - Polyneuropathy, unspecified, R41.3 - Other amnesia, R51.9 - Headache, unspecified, R53.83 - Other fatigue Erythrocyte Sedimentation Rate Today D64.9 - Anemia, unspecified, G57.53 - Tarsal tunnel syndrome, bilateral lower limbs, G62.9 - Polyneuropathy, unspecified, R41.3 - Other amnesia, R51.9 - Headache, unspecified, R53.83 - Other fatigue Homocysteine Today D64.9 - Anemia, unspecified, G57.53 - Tarsal tunnel syndrome, bilateral lower limbs, G62.9 - Polyneuropathy, unspecified, R41.3 - Other amnesia, R51.9 - Headache, unspecified, R53.83 - Other fatigue Referrals Podiatry Referral G57.53 - Tarsal tunnel syndrome, bilateral lower limbs, G62.9 - Polyneuropathy, unspecified, R20.2 - Paresthesia of skin Coding Level of Care Code Est Pt Level 4 (26998) Diagnoses Paresthesia R20.2 Tarsal tunnel syndrome, bilateral G57.53 Polyneuropathy G62.9 Bilateral carpal tunnel syndrome G56.03 Sleep difficulties G47.9
--- OUTSIDE RECORDS SUMMARY | 2025-02-10 14:12 | XMS_ITS | Data Portability ---
Author Organization [place] [facility] Chani Lopez AONE [place] Address [address] [place] [address] Care Team Providers Care Priming Powder Premix Blender Name Role Phone HALINA SOUTH Primary Care Provider Assessment Encounter Date Assessment Date Assessment LastModified by Organization Details LastModified Time 05/25/2023 05/25/2023 HPI: Patient comes in for follow-up for her right hip pain. At last visit we did notice her with IT band tendinitis. She was doing some physical therapy. It improved for a while. Her symptoms have now returned. She takes some Tylenol and she is unable to do cortisone injection. She is unable to take NSAIDs. Physical Exam: Patient is well nourished, well-developed, in no acute distress, with appropriate mood and affect. The patient is oriented to time, place, and person. Respirations are even and unlabored. There is no inguinal adenopathy. Examination of the contralateral hip shows normal range of motion, strength, no tenderness, and intact skin. The affected limb is well-perfused, shows a grossly normal motor and sensory examination. Examination of the hip shows no skin lesions. Hip motion is reduced and causes mild pain. FADIR is negative and ANDRADE is negative. Stinchfield test is negative. Patient is TTP at the greater trochanter. Boubacar test is positive. Leg lengths are approximately equal. Both hips are stable and muscle strength is normal. Pedal pulses are palpable. Assessment/Plan: The patient has continued right IT band tendinitis/greater trochanter bursitis. An extensive discussion was conducted on the natural history of the disease and the variety of non-surgical options available to the patient including non-steroidal anti-inflammatory medications, physical therapy, maintenance of ideal body weight, and reduction of activity. Since she is not amenable to injections, I would recommend continued stretching therapy. I would recommend acetaminophen. Follow-up in 3 months with [facility]. [email or web address] Not available 05/25/2023 14:59:41 08/14/2023 08/14/2023 73-year-old fema le with right hip pain. History and exam are consistent with gluteus tendinitis and greater trochanteric bursitis. After discussion regarding treatment options she will be provided a new order for physical therapy. Recheck in 2 months. [email or web address] Not available 08/14/2023 13:38:14 10/25/2023 10/25/2023 73-year-old fema le with right hip pain secondary to gluteus tendinitis and bursitis. Her symptoms are much improved following a course of physical therapy. We talked about the role of injection or medications but they are relatively contraindicated by significant gastritis and prior adverse experience with cortisone injection. She is encouraged to do stretching exercises before and after any physical exertion. She could contact this office to arrange follow-up with one of our medical certification specialist if she would like. Follow-up is as needed. This patient was seen and evaluated by Mason Samayoa MS, PA-C in indirect conjunction with documenting/superv ising provider Mc Eaton MD. He agrees with history, physical examination, tests/diagnostic imaging, and treatment plan. [email or web address] Not available 10/25/2023 12:04:01 Plan of Treatment Reminders Order Date Submit Date Provider Last Modified By Organization Details Last Modified Time Details Appointments None recorded. Lab None recorded. Referral physical therapist referral - Diagnosis: Right hip pain secondary to greater trochanteri c bursitis and gluteus tendinitis. Evaluate and treat as indicated to reduce pain and to improve mobility, range of motion, and function.Pl ease teach a home exercise plan and incorporate PT into patient's exercise routine.2-3 sessions weekly for 6 weeks. 2022 023 [email or web address] Not available 10:07:57 Procedures None recorded. Surgeries None recorded. Imaging XR, hip, unilateral, 2 or 3 view 2022 023 [email or web address] [facility], [address], [place], [address], 3 15:39:46 Medication Orders None recorded. Patient TargetsNo targets recorded. Patient InstructionsNo instructions recorded. Reason for Referral Physical Therapist Referral for Tendinitis of hip Diagnosis: Right hip pain secondary to greater trochanteric bursitis and gluteus tendinitis.Evaluate and treat as indicated to reduce pain and to improve mobility, range of motion, and function.Please teach a home exercise plan and incorporate PT into patient's exercise routine.2-3 sessions weekly for 6 weeks. Referring Physician: Mason Samayoa, Orthopedic Surgery, Encounter Date: 08/14/2023 Problems Name Problem SNOMED Code Status Onset Date Resolution Date Notes Provider Name and Address Organization Details Recorded Time Tendinitis of hip 098412271 Active 2022 Mc Eaton MD [address] [facility],[address], [place], [address], [place] [facility], [facility] 3 14:59:50 Pain of right hip joint 1969676699563 02 Active 2022 MASON SAMAYOA, SANTA [address], [place], [address], [place] [facility], [facility] 3 13:38:14 Problem Notes None recorded. Procedures Surgical History Date Name Laterality Status Provider Name and Address Organization Details Recorded Time procedure on gallbladder completed [facility] [place] [facility], 10/25/2023 11:55:19 Appendectomy completed [facility] [place] [facility], [facility] 10/25/2023 11:55:27 section completed [facility] [place] [facility] 10/25/2023 11:55:35 thyroidectomy completed [facility] [place] [facility], [facility] 10/25/2023 11:55:49 hysterectomy completed [facility] - [facility], 10/25/2023 11:56:00 Imaging Results None recorded. Procedure Notes None recorded. Medical Equipment None Reported. Medications Name Sig Start Date Stop Date Status Note LastModified by Organization Details LastModified Time azithromyci n 250 mg tablet TAKE 2 TABLETS BY MOUTH FOR 1 DAY THEN TAKE 1 TABLET BY MOUTH EVERY DAY FOR 4 DAYS 10/25 completed Not Available Not Available Not Available metoprolol succinate ER 50 mg tablet,exte nded release 24 hr active Not Available Not Available Not Available famotidine 40 mg tablet TAKE 1 TABLET BY MOUTH TWICE DAILY AT BEDTIME 10/25 completed Not Available Not Available Not Available tretinoin 0.05 % topical cream active Not Available Not Available Not Available alprazolam 0.5 mg tablet TAKE 1-2 TABLETS BY MOUTH EVERY NIGHT AT BEDTIME NEEDED FOR ANXIETY. MAY TAKE EXTRA TABLET DAILY NEEDED FOR ANXIETY active Not Available Not Available No t Available lorazepam 0.5 mg tablet TAKE 1 TABLET BY MOUTH 1 HOURS PRIOR TO MRI. MAY REPEAT ONCE active Not Available Not Available No t Available pantoprazol e 40 mg tablet,domenico yed release TAKE 1 TABLET BY MOUTH EVERY DAY 10/25 completed Not Available Not Available Not Available Synthroid 88 mcg tablet TAKE 1 TABLET BY MOUTH EVERY DAY active Not Available Not Available No t Available metronidazo le 0.75 % topical cream active Not Available Not Available Not Available fluvoxamine 50 mg tablet active Not Available Not Available Not Available gabapentin 100 mg capsule 10/25 completed Not Available Not Available Not Available epinephrine 0.3 mg/0.3 mL injection, auto-inject or USE NEEDED FOR ANAPHYLAX IS active Not Available Not Available No t Available albuterol sulfate HFA 90 mcg/actuati on aerosol inhaler active Not Available Not Available Not Available fluticasone propionate 50 mcg/actuati on nasal spray,suspe nsion SHAKE LIQUID AND USE 2 SPRAYS IN EACH NOSTRIL 1 TO 2 TIMES DAILY active Not Available Not Available No t Available Xopenex HFA 45 mcg/actuati on aerosol inhaler active Not Available Not Available Not Available levocetiriz ine 5 mg tablet active Not Available Not Available Not Available Wixela Inhub 250 mcg-50 mcg/dose powder for inhalation INHALE 1 PUFF BY MOUTH TWICE DAILY IN THE MORNING AND EVENING APPROXIMA TELY 12 HOURS APART 10/25 completed Not Available Not Available Not Available Vitals Date Recorded Body height Body mass index (BMI) Body weight Provider Name and Address Organization Details Last Updated DateTime 10/25/2023 167.64 cm 23.4 kg/m2 [address] [place] [facility], 10/25/2023 11:53:39 Social History None recorded. Functional Status Question Answer Note LastModified by Organizat ion Details LastModified Time Do you use any illicit or recreational drugs? No Information not available 10/25/2023 Do you or have you ever used any other forms of tobacco or nicotine? No Information not available 10/25/2023 What is your level of alcohol consumption? None Information not available 10/25/2023 Mental Status None recorded. Family History Relationship Description Onset Age of this Age Resolved Age Notes LastModified by Organization Details LastModified Time Father Blood coagulation disorder Not available 2023 11:54:18 Mother Family history of malignant neoplasm Not available 2023 11:54:26 Brother Diabetes mellitus Not available 2023 11:54:42 Brother Heart disease Not available 2023 11:54:57 Medical History Condition Response Cancer Y Osteopenia Y Thyroid Problems Y Reflux/GERD Y Asthma Y Gynecological HistoryNo gynecological history recorded. Obstetrics History GPAL:G 0 P 0 0 0 0 Past Encounters Encounter ID Performer Location Encounter Start Date Encounter Closed Date Diagnosis/Indication Diagnosis SNOMED-CT Code Diagnosis ICD10 Code Diagnosis Note [id number] [facility] [address] [place] [address] 05/25/2023 14:32:35 05/25/2023 15:03:03 Pain of right hip joint 2788429556 99762 M25.551 Tendinitis of hip 569242 006 M76.899 [id number] [place] [address] [facility] [address] [place] [address] 08/14/2023 13:13:21 08/14/2023 13:38:42 Pain of right hip joint 7607893541 77580 M25.551 Tendinitis of hip 788242 006 M76.899 [id number] [facility] [address] [facility] [address] [place] [address] 10/25/2023 11:42:25 10/25/2023 12:04:48 Pain of right hip joint 0313777246 69851 M25.551 Tendinitis of hip 105237 006 M76.899 Health Concerns Section Related Observation LastModified by Organization Detai ls LastModified Time None Recorded Concern Status LastModified by Organization Details LastModified Time None Recorded Advance Directives Directive None Recorded Payers Encounter Date Sequence Insurance Name Policy Number Policy Dalton Covered Member ID Dalton Member ID Guarantor Name 05/25/2023 1 MEDICARE B-[place]: [facility] Rafaela Jimenezty [id number] Rafaela Althea 05/25/2023 2 FOR LIFE () Rafaela Althea [id number] Rafaela Althea 10/25/2023 1 MEDICARE B-ME: [facility] Rafaela Chávze [place] [id number] Rafaela [place] 10/25/2023 2 FOR LIFE () Rafaela Jimenezty [id number] Rafaela Oh Notes Date Note Type Note Provider Name and Address Organization Details Recorded Time 08/14/2023 text/html 73-year-old johann mayo presents for recheck of right hip pain. She reports that she is on physical therapy and as a result she is having less pain at the lateral aspect of the hip and less pain into the groin but more pain at the region of the buttock and she gestures to the region of the gluteus tendons. There has been no new injury accidents or trauma. Her physical therapist is currently out of the country so she is doing therapy exercises on her own. She cannot take NSAIDs and is disinterested in cortisone injection. MASON SAMAYOA PA-C [address], [place], [address], [place] [facility] 08/14/2023 13:39:23 10/25/2023 text/html 73-year-old johann mayo presents for recheck of right hip pain. She has done physical therapy since her last visit to the office for the treatment of gluteus tendinitis. She states that her symptoms are improved such that she is comfortable throughout the majority of her waking day. She states that when sleeping and especially if lying on her right side she has discomfort. She also reports that carrying a heavy load causes her discomfort as well. She does have some ongoing neck and low back issues that have yet to be formally evaluated by a medical certification specialist. MASON SAMAYOA PA-C [address] [place] [address], [place], [address], [place] [facility] 10/25/2023 12:04:37 OBGyn Episode No OBEpisode recorded.
== END 2025-02-10 15:10 | disposition home or self-care (01) ==
LOC: HO.HSMS 13:56
PROVIDERS: PCP Internal Medicine; Visit Provider Nurse Practitioner Family
DX: R20.2 Paresthesia of skin (principal); G57.53 Tarsal tunnel syndrome, bilateral lower limbs; G62.9 Polyneuropathy, unspecified; G56.03 Carpal tunnel syndrome, bilateral upper limbs; G47.9 Sleep disorder, unspecified
CPT/HCPCS: 99214

== ENCOUNTER → 2025-02-10 13:56 | Outpatient (BNVA) | payer MEDICARE, OTHER, SELFPAY | PROVIDERS: PCP Internal Medicine; Visit Provider Nurse Practitioner Family | DX: G57.53 Tarsal tunnel syndrome, bilateral lower limbs (principal); G56.03 Carpal tunnel syndrome, bilateral upper limbs; G47.9 Sleep disorder, unspecified; G62.9 Polyneuropathy, unspecified; R20.2 Paresthesia of skin | CPT/HCPCS: 99212 ==

== ENCOUNTER 2025-02-12 12:07 | Outpatient (REF) | payer MEDICARE, OTHER, SELFPAY ==
--- OUTSIDE RECORDS SUMMARY | 2025-02-12 12:10 | XMS_ITS | Data Portability ---
Author Organization [facility] Chani Lopez AONE [place] Address [address] [place] [address] Care Team Providers Care Cosmetician Apprentice Name Role Phone HALINA SOUTH Primary Care Provider [phone] Assessment Encounter Date Assessment Date Assessment LastModified [...] to arrange follow-up with one of our financial retirement plan specialist if she would like. Follow-up is [...] 3 view 2022 023 [email or web address] [facility], [address], [place], [address], 3 15:39:46 Medication Orders None recorded. Patient [...] Organization Details Recorded Time Tendinitis of hip 437693065 Active 2022 Mc Eaton MD [address] [facility],[address], [place], [address], [place] [facility], P 3 14:59:50 Pain of right hip joint 6150685347238 02 Active 2022 MASON SAMAYOA, SANTA [address], [place], [address], [place] [facility], [facility] 3 13:38:14 Problem Notes None recorded. Procedures Surgical History Date Name Laterality Status Provider Name and Address Organization Details Recorded Time procedure on gallbladder completed [facility] [place] [facility], 10/25/2023 11:55:19 Appendectomy completed [facility] [place] [facility], P 10/25/2023 11:55:27 section completed [facility] [place] [facility], P 10/25/2023 11:55:35 thyroidectomy completed [facility] [place] [facility], P 10/25/2023 11:55:49 hysterectomy completed [facility] - [facility], 10/25/2023 11:56:00 Imaging Results None recorded. Procedure [...] Updated DateTime 10/25/2023 167.64 cm 23.4 kg/m2 [address] [facility], 10/25/2023 11:53:39 Social History None recorded. Functional [...] SNOMED-CT Code Diagnosis ICD10 Code Diagnosis Note [id number] [facility] [address] [facility] [address] [place] [address] 05/25/2023 14:32:35 05/25/2023 15:03:03 Pain of right hip joint 0324492103 87597 M25.551 Tendinitis of hip 693360 006 M76.899 [id number] [place] [address] [facility] [address] [place] [address] 08/14/2023 13:13:21 08/14/2023 13:38:42 Pain of right hip joint 7075188014 59795 M25.551 Tendinitis of hip 127429 006 M76.899 [id number] [facility] [facility] [address] [facility] [address] [facility] [address] 10/25/2023 11:42:25 10/25/2023 12:04:48 Pain of right hip joint 3288960525 94009 M25.551 Tendinitis of hip 983208 006 M76.899 Health Concerns Section Related Observation LastModified by Organization Detai ls LastModified Time None Recorded Concern Status LastModified by Organization Details LastModified Time None Recorded Advance Directives Directive None Recorded Payers Encounter Date Sequence Insurance Name Policy Number Policy Dalton Covered Member ID Dalton Member ID Guarantor Name 05/25/2023 1 MEDICARE B-DE: [facility] Rafaela Jimenezty [id number] Rafaela Althea 05/25/2023 2 FOR LIFE () Rafaela Althea [id number] Rafaela Althea 10/25/2023 1 MEDICARE B-DE: [facility] Rafaela Chávez [place] [id number] Rafaela [place] 10/25/2023 2 FOR LIFE () Rafaela Jimenezty [id number] Rafaela Oh Notes Date Note Type Note [...] MASON SAMAYOA PA-C [address], [place], [address], [place] [facility], P 08/14/2023 13:39:23 10/25/2023 text/html 73-year-old johann [...] yet to be formally evaluated by a financial retirement plan specialist. MASON SAMAYOA PA-C [address] [place] [address], [place], [address], [place] [facility] 10/25/2023 12:04:37 OBGyn Episode No OBEpisode recorded.
[2025-02-12 12:36] LABS: MANUAL DIFF FLAG NO
[2025-02-12 13:31] LABS: Basophils Percent Auto 0.9 % (0-2); Eosinophils Absolute Auto 0.1 X10*3/uL (0.0-0.4); Eosinophils Percent Auto 1.9 % (0-4); Hematocrit 36.1 % (37.0-47.0); Hemoglobin 11.9 g/dl (12.0-16.0); Imm Gran Abs Auto 0.02 X10*3/uL (0.00-0.03); Imm Gran Pct Auto 0.4 % (0.0-0.4); Lymphocytes Absolute Auto 1.5 X10*3/uL (1.2-4.9); Lymphocytes Percent Auto 30.9 % (20-40); Mean Corpuscular Hemoglobin 29.1 pg (27.0-33.0); Mean Corpuscular Volume 88.3 fL (80.0-98.0); Mean Platelet Volume 10.4 fL (9.4-12.3); Monocytes Absolute Auto 0.5 X10*3/uL (0.1-1.2); Monocytes Percent Auto 10.2 % (2-11); Neutrophils Absolute Auto 2.6 x10*3/uL (2.0-8.3); Neutrophils Percent Auto 55.7 % (45-73); Platelet Count 203 X10*3/uL (160-400); Red Blood Count 4.09 X10*6/uL (4.20-5.50); Red Cell Distribution Width 13.4 % (11.0-16.0); White Blood Count 4.7 X10*3/uL (4.8-10.8)
[2025-02-12 14:03] LABS: Alanine Aminotransferase 19 U/L (0-31); Alkaline Phosphatase 48 U/L (39-117); Anion Gap 9 (12-20); Aspartate Amino Transferase 26 U/L (5-31); Bilirubin Total 0.4 mg/dL (0.0-1.0); Blood Urea Nitrogen 20 mg/dL (9-16); C Reactive Protein 0.26 mg/dL (< or = 0.50); Calcium 8.7 mg/dL (8.4-10.2); Carbon Dioxide 27 mmol/L (22-29); Chloride 108 mmol/L (96-108); Estimated Glomerular Filt Rate > 60; Glucose Random 93 mg/dL (60-115); Iron 75 mcg/dL (30-160); Percent Iron Saturation 29 % (15-50); Potassium 4.1 mmol/L (3.3-5.1); Sodium 140 mmol/L (135-145); Total Iron Binding Capacity 256 mcg/dL (228-428); Total Protein 6.9 g/dL (6.5-8.0); Unsaturated Iron Binding 181 ug/dL
[2025-02-12 14:13] LABS: Erythrocyte Sedimentation Rate 10 MM/HR (0-20)
[2025-02-12 14:22] LABS: Ferritin 85 ng/mL (10-250); Vitamin D 25-OH Total 59.3 ng/mL (>30)
[2025-02-12 14:27] LABS: Folate 13.7 ng/mL (> or = 4.0); Vitamin B12 705 pg/mL (200-900)
[2025-02-13 16:28] LABS: Homocysteine 9.6 umol/L (< or = 13.4)
[2025-02-16 10:29] LABS: Methylmalonic Acid 133 nmol/L (69-390)
[2025-02-17 15:09] LABS: Vitamin B1 11 nmol/L (8-30)
== END 2025-02-12 12:08 | disposition home or self-care (01) ==
LOC: HO.LAB 12:07
PROVIDERS: PCP Internal Medicine; Visit Provider Nurse Practitioner Family
DX: D64.9 Anemia, unspecified (principal); R41.3 Other amnesia; G62.9 Polyneuropathy, unspecified; G57.53 Tarsal tunnel syndrome, bilateral lower limbs; R53.83 Other fatigue; R51.9 Headache, unspecified; M85.80 Other specified disorders of bone density and structure, unspecified site
CPT/HCPCS: 36415; 80053; 82306; 82607; 82728; 82746; 83090; 83540; 83921; 84207; 84425; 85025; 85652; 86140

== ENCOUNTER 2025-03-18 07:15 | Outpatient (RCR) | payer MEDICARE, OTHER, SELFPAY | END 2025-03-18 11:31 | disposition home or self-care (01) | LOC: HO.PT 07:15 | PROVIDERS: PCP Internal Medicine; Visit Provider Internal Medicine | DX: M25.512 Pain in left shoulder (principal) | CPT/HCPCS: 97035; 97110; 97140; 97162 ==

== ENCOUNTER 2025-05-12 11:28 | Outpatient (REF) | payer MEDICARE, OTHER, SELFPAY ==
--- OUTSIDE RECORDS SUMMARY | 2025-05-12 12:25 | XMS_ITS | Encounter Summary ---
Author Organization [facility] Address [address] [place] [address] Phone Care Team Providers Care Maintenance Repairman Name Role Phone Orion Vaca MD Primary Care Provider [phone] Vidhi Lutz MD Unavailable [phone] Orion Vaca MD Unavailable [phone] Encounter Details Date Type Department Care Team (Late st Contact Info) Description 07/17/2019 Procedure Pass [facility] Endoscopy Admitting Dept Virtual Department [address] [place] [address] Social History Tobacco Use Types Packs/Day Years Used Date Smoking Tobacco: Never Smokeless Tobacco: Never Alcohol Use Standard Drinks/Week Comments Yes 7 (1 standard drink = 0.6 oz pur e alcohol) Comments No Sex and Gender Information Value Date Recorded Sex Assigned at Not on file Legal Sex Female 8:03 PM EST Gender Identity Not on file Sexual Orientation Not on file documented as of this encounter Plan of Treatment Not on file documented as of this encounter Visit Diagnoses Not on filedocumented in this encounter Care Teams Maintenance Repairman Relationship Specialty Start Date End Date Orion Vaca MD PCP - General 07/05/17 Vidhi Lutz MD [address] [place] [address], [address] [place] [address] [email or web address] Historical LMR Provider 07/07/17 Orion Vaca MD [address] [place] [address] Historical LMR Provider 07/07/17 2 documented as of this encounter Additional Source Comments The information contained in this document represents components of the legal health record. It is not the complete legal health record.[facility]
--- OUTSIDE RECORDS SUMMARY | 2025-05-12 12:25 | XMS_ITS | Encounter Summary ---
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 Procedures evaluate & treat Juana Kruse PA Phone: tel: fax: [address] [address] Phone: tel: Referral ID Status Reason Start Date Expiration Date Visits Re quested Visits Authorized [id number] Closed 09/23/2021 09/16/2022 99 [phone] Encounter Details Date Type Department Care Team (Latest Contact Info) Description 06/27/2021 Transcribe Orders [facility] [address] [place] [address] Juana Kruse PA [address] [place] [address] Encounter for rehabilitation (Primary Dx) Social History Tobacco Use Types Packs/Day Years [...] as of this encounter Plan of Treatment Scheduled Referrals Name Type Priority Associated Diagnoses Orde r Schedule Ambulatory referral to [facility] Physical Therapy Outpatient Referral Routine Encounter for rehabilitation Ordered: 06/27/2021 documented as of this encounter Visit Diagnoses Diagnosis Encounter for rehabilitation- Primary documented in this encounter Care Teams Construction Project Mgr Relationship Specialty Start Date End Date Orion Vaca MD PCP - General 07/05/17 Vidhi Lutz MD [address] [place] [address], [address] [place] [address] [email or web address] Historical LMR Provider 07/07/17 Orion Vaca MD [address] [place] [address] Historical LMR Provider 07/07/17 2 documented as of this encounter Additional Source Comments The information contained in this document represents components of the legal health record. It is not the complete legal health record.[facility]
--- OUTSIDE RECORDS SUMMARY | 2025-05-12 12:25 | XMS_ITS ---
Author Name [facility] Organization Unknown History of Medication Use Medication Directions Dispensed Refills Start Date End Date Stat us azithromycin 250 mg tablet TAKE 2 TABLETS BY MOUTH FOR 1 DAY THEN TAKE 1 TABLET BY MOUTH EVERY DAY FOR 4 DAYS 4 completed pantoprazole 40 mg tablet,delayed release TAKE 1 TABLET BY MOUTH EVERY DAY 4 completed Wixela Inhub 250 mcg-50 mcg/dose powder for inhalation INHALE 1 PUFF BY MOUTH TWICE DAILY IN THE MORNING AND EVENING APPROXIMATELY 12 HOURS APART 4 completed albuterol sulfate HFA 90 mcg/actuation aerosol inhaler active albuterol sulfate HFA 90 mcg/actuation aerosol inhaler active alprazolam 0.5 mg tablet TAKE 1-2 TABLETS BY MOUTH EVERY NIGHT AT BEDTIME NEEDED FOR ANXIETY. MAY TAKE EXTRA TABLET DAILY NEEDED FOR ANXIETY active azithromycin 250 mg tablet TAKE 2 TABLETS BY MOUTH FOR 1 DAY THEN TAKE 1 TABLET BY MOUTH EVERY DAY FOR 4 DAYS active epinephrine 0.3 mg/0.3 mL injection, auto-injector USE NEEDED FOR ANAPHYLAXIS active fluticasone propionate 50 mcg/actuation nasal spray,suspension SHAKE LIQUID AND USE 2 SPRAYS IN EACH NOSTRIL 1 TO 2 TIMES DAILY active fluticasone propionate 50 mcg/actuation nasal spray,suspension SHAKE LIQUID AND USE 2 SPRAYS IN EACH NOSTRIL 1 TO 2 TIMES DAILY active gabapentin 100 mg capsule active lorazepam 0.5 mg tablet TAKE 1 TABLET BY MOUTH 1 HOURS PRIOR TO MRI. MAY REPEAT ONCE active metoprolol succinate ER 50 mg tablet,extended release 24 hr active tretinoin 0.05 % topical cream active Xopenex HFA 45 mcg/actuation aerosol inhaler active Problems Problem Status Onset Date Problem Type Date of Resoluti on Source Tendinitis of hip active 2023-05-25 ProblemAct [facility] Pain in right hip joint active 2023-08-14 ProblemAct [facility] Encounters Encounter Type Encounter Reason Primary Diagnosis Location Date Ambulatory [facility] 08/21/2023 Ambulatory [facility] 08/15/2023 Ambulatory [facility] 08/14/2023 Ambulatory [facility] 05/28/2023 Ambulatory [facility] 05/25/2023 Ambulatory [facility] 05/25/2023 Ambulatory [facility] 05/25/2023 Ambulatory [facility] 05/25/2023 Ambulatory [facility] 05/23/2023 Ambulatory [facility] [place] 05/23/2023 Ambulatory [facility] 05/23/2023 Ambulatory [facility] 05/23/2023 Ambulatory [facility] 05/22/2023 Ambulatory [facility] 05/22/2023
--- OUTSIDE RECORDS SUMMARY | 2025-05-12 12:25 | XMS_ITS | Encounter Summary ---
Author Organization [facility] Address [address] [place] [address] Phone Care Team Providers Care Theatre Director Name Role Phone Orion Vaca MD Primary Care Provider [phone] Vidhi Lutz MD Unavailable [phone] Encounter Details Date Type Department Care Team (Latest Contact Info) Description 12/12/2023 Transcribe Orders Virtual Department [address] [place] [address] Juana Kruse PA [address] [place], [place] [id number] Lower abdominal pain (Primary Dx); Diarrhea, unspecified type Social History Tobacco Use Types Packs/Day Years Used Date Smoking Tobacco: Never Smokeless Tobacco: Never Alcohol Use Standard Drinks/Week Comments Yes 7 (1 standard drink = 0.6 oz pur e alcohol) Education Answer Date Recorded Are you interested in more education? Not on elian e 01/11/2023 Are you concerned about learning? Not on file 01/11/2023 No 01/11/2023 No 01/11/2023 Digital Access Answer Date Recorded No 02/12/2023 No 02/12/2023 Reliable internet access at home? Not on file 02/12/2023 Device with a working camera? Not on file Comments No Sex and Gender Information Value Date Recorded Sex Assigned at Not on file Legal Sex Female 8:03 PM EST Gender Identity Not on file Sexual Orientation Not on file documented as of this encounter Plan of Treatment Not on file documented as of this encounter Visit Diagnoses Diagnosis Lower abdominal pain- Primary Abdominal pain, other specified site Diarrhea, unspecified type documented in this encounter Care Teams Theatre Director Relationship Specialty Start Date End Date Orion Vaca MD PCP - General 07/05/17 Vidhi Lutz MD [address] [place] [address], [address] [place] [address] [email or web address] Historical LMR Provider 07/07/17 documented as of this encounter Additional Source Comments The information contained in this document represents components of the legal health record. It is not the complete legal health record.[facility]
--- OUTSIDE RECORDS SUMMARY | 2025-05-12 12:25 | XMS_ITS | Encounter Summary ---
Author Organization [facility] Address [address] [place] [address] Phone Care Team Providers Care Motors And Generators Inspector Name Role Phone Orion Vaca MD Primary Care Provider [phone] Vidhi Lutz MD Unavailable [phone] Orion Vaca MD Unavailable [phone] Encounter Details Date Type Department Care Team (Latest Contact Info) Description 08/22/2019 Transcribe Orders Virtual Department [address] [place] [address] Catarino Figueroa MD [address] [place] [phone] [email or web address] Right sided abdominal pain (Primary Dx); Gas pain Social History Tobacco Use Types Packs/Day Years [...] on file documented as of this encounter Results * US PELVIS LIMITED (08/26/2019 3:20 PM EST) Anatomical Region Laterality Modality Pelvis, Uterus/Adnexa Ultrasound 08/26/2019 4:22 PM EST Impressions 08/26/2019 4:35 PM EST Postsurgical change of the female pelvis. No acute or suspicious abnormality. POS - [facility] Narrative 08/26/2019 4:35 PM EST CLINICAL HISTORY: UL PELVIS/TRANSABDOMINAL/ENDOVAG TECHNIQUE: Sonography of the pelvis performed. COMPARISON: None. FINDINGS: The patient is status post hysterectomy and oophorectomy. The bladder is smooth walled. No bladder abnormalities visualized. There is no abnormal midline mass or free fluid. The left and right adnexa are unremarkable. The ovaries and uterus are not visualized, consistent with the history. Procedure Note Freddie Perkins MD - 08/26/2019 CLINICAL HISTORY: UL PELVIS/TRANSABDOMINAL/ENDOVAG TECHNIQUE: Sonography of the pelvis performed. COMPARISON: None. FINDINGS: The patient is status post hysterectomy and oophorectomy. The bladder is smooth walled. No bladder abnormalities visualized. Thereis no abnormal midline mass or free fluid. The left and right adnexa areunremarkable. The ovaries and uterus are not visualized, consistent withthe history. IMPRESSION: Postsurgical change of the female pelvis. No acute or suspiciousabnormality. POS - [facility] Catarino Figueroa MD [facility] PELVIS Final Resu lt documented in this encounter Visit Diagnoses Diagnosis Right sided abdominal pain- Primary Abdominal pain, unspecified site Gas pain Flatulence, eructation, and gas pain Right sided abdominal pain Abdominal pain, unspecified site Gas pain Flatulence, eructation, and gas pain documented in this encounter Care Teams Motors And Generators Inspector Relationship Specialty Start Date End Date Orion Vaca MD PCP - General 07/05/17 Vidhi Lutz MD [address] [place] [address] [address] [place] [address] [email or web address] Historical LMR Provider 07/07/17 Orion Vaca MD [address] [place] [address] Historical LMR Provider 07/07/17 2 documented as of this encounter Additional Source Comments The information contained in this document represents components of the legal health record. It is not the complete legal health record.[facility]
--- OUTSIDE RECORDS SUMMARY | 2025-05-12 12:25 | XMS_ITS | Encounter Summary ---
Author Organization [facility] Address [address] [place] [address] Phone Care Team Providers Care Daytime Caregiver Name Role Phone Orion Vaca MD Primary Care Provider [phone] Vidhi Lutz MD Unavailable [phone] Orion Vaca MD Unavailable [phone] Encounter Details Date Type Department Care Team (Latest Contact Info) Description 06/11/2018 Transcribe Orders [facility] [address] [address] Juana Kruse PA [address] [place] [address] Intestinal malabsorption, unspecified type (Primary Dx); Iron deficiency anemia, unspecified iron deficiency anemia type Social History Tobacco Use Types Packs/Day Years Used Date Smoking Tobacco: Never Smokeless Tobacco: Never Alcohol Use Standard Drinks/Week Comments Yes 1 (1 standard drink = 0.6 oz pur e alcohol) 3 or 4 times weekly Comments Unknown Sex and Gender Information Value Date Recorded Sex Assigned at Not on file Legal Sex Female 8:03 PM EST Gender Identity Not on file Sexual Orientation Not on file documented as of this encounter Plan of Treatment Not on file documented as of this encounter Results * Magnesium (06/11/2018 10:45 AM EDT) MAGNESIUM 2.3 1.6 - 2.6 mg/dL [facility] Blood 06/11/2018 10:4 5 AM EDT 06/11/2018 10:51 AM EDT Juana ASHER LAB BLOOD ORDERABLES Final Result Performing Organization Address [facility] de Phone Number [address] [address] * Zinc (06/11/2018 10:45 AM EDT) Pathologist [facility] ZINC 0.74 0.66 - 1.10 mcg/mL [facility] Comment: (NOTE) ADDITIONAL INFORMATION This test was developed and its performance characteristics determined by [facility] in a manner consistent with CLIA requirements. This test has not been cleared or approved by the U.S. Food and Drug Administration. Blood 06/11/2018 10:4 5 AM EDT 06/11/2018 10:50 AM EDT Juana ASHER LAB BLOOD ORDERABLES Final Result Performing Organization Address [facility] de Phone Number [facility] [address] [place] [address] * 25-OH vitamin D (06/11/2018 10:45 AM EDT) 25 [place] VIT D (TOTAL) 39 30 - 60 ng/mL [facility] Blood 06/11/2018 10:4 5 AM EDT 06/11/2018 10:51 AM EDT Juana ASHER LAB BLOOD ORDERABLES Final Result Performing Organization Address [facility] de Phone Number [address] [address] * (ABNORMAL) Vitamin B12 (06/11/2018 10:45 AM EDT) VITAMIN B12 1,602(H) 232 - 1,245 pg/mL [facility] Blood 06/11/2018 10:4 5 AM EDT 06/11/2018 10:51 AM EDT us Juana ASHER [facility] BLOOD ORDERABLES Final Result [address] [address] * Ferritin (06/11/2018 10:45 AM EDT) FERRITIN 144 13 - 150 ug/L [facility] Blood 06/11/2018 10:4 5 AM EDT 06/11/2018 10:51 AM EDT us Juana ASHER LAB BLOOD ORDERABLES Final Result Performing Organization Address [facility]/ZIP Co de Phone Number [address] [address] * Iron and iron binding capacity (06/11/2018 10:45 AM EDT) IRON 92 30 - 160 ug/dL [facility] IRON BINDING CAPACITY 260 228 - 428 ug/dL [facility] TRANSFERRIN SATURAT. 35 15 - 50 % [facility] Blood 06/11/2018 10:4 5 AM EDT 06/11/2018 10:51 AM EDT Juana ASHER LAB BLOOD ORDERABLES Final Result Performing Organization Address City/[facility]/ZIP Co de Phone Number [address] [address] * CBC (06/11/2018 10:45 AM EDT) WBC 4.72 3.40 - 11.20 K/uL [facility] RBC 4.28 3.80 - 4.80 M/uL [facility] HGB 12.7 12.0 - 15.0 g/dL [facility] HCT 38.4 36.0 - 46.0 % [facility] PLT 199 130 - 400 K/uL [facility] MCV 89.7 79.0 - 98.0 fL [facility] MCH 29.7 27.0 - 34.8 pg [facility] MCHC 33.1 31.5 - 36.0 g/dL [facility] RDW 12.5 10.8 - 14.6 % [facility] MPV 10.3 9.4 - 12.4 fl [facility] NRBC 0.00 /100 WBCs [facility] ABSOLUTE NRBC 0.00 K/uL [facility] Blood 06/11/2018 10:4 5 AM EDT 06/11/2018 10:51 AM EDT us Juana ASHER LAB BLOOD ORDERABLES Final Result Performing Organization Address City/State/[facility] Co de Phone Number [facility] [address] [place] [address] documented in this encounter Visit Diagnoses Diagnosis Intestinal malabsorption, unspecified type- Primary Iron deficiency anemia, unspecified iron deficiency anemia type documented in this encounter Care Teams Daytime Caregiver Relationship Specialty Start Date End Date Orion Vaca MD PCP - General 07/05/17 Vidhi Lutz MD [address] [place] [address], [address] [place] [address] [email or web address] Historical LMR Provider 07/07/17 Orion Vaca MD [address] [place] [address] Historical LMR Provider 07/07/17 2 documented as of this encounter Additional Source Comments The information contained in this document represents components of the legal health record. It is not the complete legal health record.[facility]
--- OUTSIDE RECORDS SUMMARY | 2025-05-12 12:25 | XMS_ITS | Clinical Summary ---
Author Organization [facility] Address [address] [address] Phone Care Team Providers Care Steffen House Supervisor Name Role Phone Orion Vaca MD Primary Care Provider [phone] Allergies Active Allergy Reactions Criticality Noted Date Comments Epinephrine 12/25/2024 Sulfa (Sulfonamide Antibiotics) 12/16 Medications metoprolol succinate (TOPROL-XL) 50 mg 24 hr tablet TAKE 1 TABLET DAILY 90 tablet 2 11/06/2024 Active levothyroxine (SYNTHROID, LEVOTHROID) 88 mcg tablet Take by mouth 1 (one) time each day before breakfast. Active famotidine (PEPCID) 10 mg tablet Take by mouth. Active fluvoxaMINE (LUVOX) 50 mg tablet Take 1 tablet (50 mg total) by mouth at bedtime. Active hydrALAZINE (APRESOLINE) 10 mg tablet Take by mouth. Active Medical History Medical History Date Comments Thyroid ca ([facility]/HCC V24, CMS/HCC V28) DX:Thyroid ca ([facility]); COMMENT: 1994 Hypothyroidism 08/10/2009 DX:Hypothyroidis m Malaise and fatigue 08/10/2009 DX:Malaise a nd fatigue GERD (gastroesophageal reflux disease) 9 DX:GERD (gastroesophageal reflux disease) Social History Tobacco Use Types Packs/Day Years Used Date Smoking Tobacco: Never Smokeless Tobacco: Never Alcohol Use Standard Drinks/Week Comments Yes 0 (1 standard drink = 0.6 oz pur e alcohol) Comments Unknown Sex and Gender Information Value Date Recorded Sex Assigned at Not on file Legal Sex Female 10:55 AM EST Gender Identity Not on file Sexual Orientation Not on file Obstetrics History Last Filed Vital Signs Vital Sign Reading Time Taken Comments Blood Pressure 136/77 12/25/2024 1:53 PM EDT Pulse 67 09/27/2023 1:21 PM EST Temperature - - Respiratory Rate - - Oxygen Saturation - - Inhaled Oxygen Concentration - - Weight 69.9 kg (154 lb) 12/25/2024 1:56 PM EDT Height 165.1 cm (5' 5 ) 12/25/2024 1:56 PM EDT Body Mass Index 25.63 12/25/2024 1:56 PM EDT Plan of Treatment Upcoming Encounters Date Type Department Care Team (Late st Contact Info) Description 05/25/2025 1:30 PM EDT Office Visit [facility] Cardiology [address] [place] [phone] Orion Soliz MD [address] [place] [address],[facility] [address] [place], [place] [phone] Health Maintenance Due Date Last Done Comments DTaP,Tdap,and Td Vaccines (1 - Tdap) 1969 Zoster Vaccines (1 of 2) 1969 Pneumococcal Vaccine: 50+ Years (2 of 2 - PPSV23) 06/18/2019 06/18/2018 Cholesterol Screening (Lipid Panel) 08/15/2022 Colorectal Cancer Screening: Colonoscopy 08/15/2022 Falls Risk Assessment 08/15/2022 Hepatitis C Screening 08/15/2022 Medicare Annual Wellness Visit 08/15/2022 Osteoporosis Screening (Bone Density Screening) 08/15/2022 Social Influencers of Health Screening 08/15/2022 RSV Immunization Adult Patients (1 - 1-dose 75+ series) 2024 Depression Screening 09/17/2024 COVID-19 Vaccine (7 - Pfizer risk 2023- season) 2024 06/03/2024, 07/28/2022, 06/18/2022, Additional history exists Influenza Vaccine (#1) 2025 , 07/11/2023, 07/10/2022, Additional history exists Hypertension/CHF/CAD Annual BMP Blood Test 07/18/2025 07/18/2024, 12/12/2023, 12/06/2020, Additional history exists HIB Vaccines Aged Out No longer eligi ble based on patient's age to complete this topic HPV Vaccines Aged Out No longer eligi ble based on patient's age to complete this topic Hepatitis A Vaccines Aged Out No long er eligible based on patient's age to complete this topic Hepatitis B Vaccines Aged Out No long er eligible based on patient's age to complete this topic IPV Vaccines Aged Out No longer eligi ble based on patient's age to complete this topic MMR Vaccines Aged Out No longer eligi ble based on patient's age to complete this topic Meningococcal ACWY Vaccine Aged Out N o longer eligible based on patient's age to complete this topic Meningococcal B Vaccine Aged Out No l onger eligible based on patient's age to complete this topic RSV Immunization Patients Under 20 months Aged Out No longer eligible based on patient's age to complete this topic Varicella Vaccines Aged Out No longer eligible based on patient's age to complete this [place] [phone] MEDICARE Care Teams Steffen House Supervisor Relationship Specialty Start Date End Date Orion Vaca MD [address] [place] [address] PCP - General Internal Medicine 10/09/12
--- OUTSIDE RECORDS SUMMARY | 2025-05-12 12:25 | XMS_ITS | Encounter Summary ---
Author Organization [facility] Address [address] [place] [address] Phone Care Team Providers Care Hydrologic Modeler Name Role Phone Orion Vaca MD Primary Care Provider [phone] Vidhi Lutz MD Unavailable Orion Vaca MD Unavailable [phone] Encounter Details Date Type Department Care Team (Late st Contact Info) Description 06/03/2018 Procedure Pass [facility], Ct Scan - [address] [address] Social History Tobacco Use Types Packs/Day Years [...] on filedocumented in this encounter Care Teams Hydrologic Modeler Relationship Specialty Start Date End Date Orion Vaca MD PCP - General 07/05/17 Vidhi Lutz MD [address] [place] [address], [address] [place] [address] [email or web address] Historical LMR Provider 07/07/17 Orion Vaca MD [address] [place] [address] Historical LMR Provider 07/07/17 2 documented as of this encounter Additional Source Comments The information contained in this document represents components of the legal health record. It is not the complete legal health record.[facility]
--- OUTSIDE RECORDS SUMMARY | 2025-05-12 12:25 | XMS_ITS | Clinical Summary ---
Author Organization [facility] Address [address] [place], [place] [id number] Care Team Providers Care Posting Machine Operator Name Role Phone Orion Vaca MD Primary Care Provider Unavail able Allergies Active Allergy Reactions Criticality Noted Date Comments Erythromycin 10/09/2012 Dentemp 10/09/2012 Epinephrine Palpitations High 09/24/2017 Erythromycin Base Anaphylaxis High 04/13/2021 Eugenol 08/05/2008 Other reaction(s): Unknown Influenza Virus Vaccine 06/20/2022 Iodine 06/06/2018 Lactose 12/13/2021 Latex Rash Low 03/29/2020 Levofloxacin Hives 08/05/2008 Penicillins Hives,Other (See Comments) 08/05/2008 Nauseous Procaine 06/20/2022 Shellfish-Derived Products 10/09/2012 Sulfamethoxazole-Trime thoprim Other (See Comments) 08/05/2008 Itching Medications Medication Sig Dispensed Refills Start Date End Date Status albuterol 108 (90 Base) MCG/ACT inhaler Inhale 2 puffs into the lungs every 6 (six) hours as needed. 0 Active ALPRAZolam (XANAX) 0.5 MG tablet Take 0.5 mg by mouth every night at bedtime. 0 01/27/2021 Active bisacodyl (DULCOLAX) 5 MG EC tablet bisacodyl 5 mg tablet,delayed release TAKE 4 TABLETS BY MOUTH WITH 8 OUNCES OF WATER ONCE DAILY BEFORE PROCEDURE 0 Active Cholecalciferol 25 MCG (1000 UT) capsule Vitamin D3 25 mcg (1,000 unit) capsule Take by oral route. 0 Active ciprofloxacin (CIPRO) 250 MG tablet ciprofloxacin 250 mg tablet take 1 tablet by mouth every 12 hours 0 Active esomeprazole (NexIUM) capsule 20 mg Take 20 mg by mouth. 0 Acti ve gabapentin (NEURONTIN) 100 MG capsule Take 300 mg by mouth every night at bedtime. 0 03/25/2021 Active Anusol-HC 25 MG suppository UNWRAP AND INSERT 1 SUPPOSITORY RECTALLY EVERY DAY 0 02/22/2021 Active Synthroid 112 MCG tablet 0 02/09/2021 Active predniSONE (DELTASONE) tablet 10 mg Take 2 tablets by mouth daily. for 5 days 0 03/18/2021 Active omeprazole (PriLOSEC OTC) 20 MG tablet Take by mouth. 0 Active raNITIdine (ZANTAC) 300 MG tablet ranitidine 300 mg tablet take 1 tablet by mouth once daily at bedtime 0 Active tretinoin (RETIN-A) 0.05 % cream 0 02/10/2021 Active tobramycin-dexameth asone (TOBRADEX) ophthalmic solution 0 02/21/2021 Activ e ascorbic acid (VITAMIN C) 1000 MG tablet Take 1,000 mg by mouth. 0 Active atenolol (TENORMIN) tablet 25 mg 0 03/19/2022 Active azithromycin (ZITHROMAX) 250 MG tablet azithromycin 250 mg tablet TAKE 2 TABLETS BY MOUTH FOR 1 DAY THEN TAKE 1 TABLET BY MOUTH EVERY DAY FOR 4 DAYS 0 Active clindamycin phosphate (CLEOCIN T) 1 % lotion clindamycin 1 % lotion 0 Active cromolyn (GASTROCROM) 100 MG/5ML solution cromolyn 100 mg/5 mL oral concentrate 0 Active Eflornithine HCl (Vaniqa) 13.9 % cream Apply topically. 0 10/27/2011 Active EPINEPHrine 0.3 MG/0.3ML SOAJ epinephrine 0.3 mg/0.3 mL injection, auto-injector INJECT IN THE MUSCLE NEEDED FOR ANAPHYLAXIS DIRECTED 0 Active famotidine (PEPCID) 40 MG tablet Take 0.5 tablets by mouth. 0 Active fluticasone (VERAMYST) 27.5 MCG/SPRAY nasal spray spray or apply 2 sprays inside Nose. 0 Active fluticasone (FLONASE) 50 MCG/ACT nasal spray fluticasone propionate 50 mcg/actuation nasal spray,suspension SHAKE LIQUID AND USE 2 SPRAYS IN EACH NOSTRIL 1 TO 2 TIMES DAILY 0 Active fluvoxaMINE (LUVOX) 25 MG tablet Take 25 mg by mouth. 0 Ac tive ketotifen (ZADITOR) 0.025 % ophthalmic solution Place 1 drop into both eyes 2 (two) times a day. 0 05/05/2022 Active levocetirizine (XYZAL) 5 MG tablet Take 5 mg by mouth. 0 Active LORazepam (ATIVAN) 0.5 MG tablet Take 1 tablet by mouth. 0 Active methylPREDNISolone (MEDROL DOSEPACK) 4 MG tablet FOLLOW PACKAGE DIRECTIONS 0 03/21/2022 Active metoprolol succinate (TOPROL-XL) 24 hr tablet 50 mg Take 1 tablet by mouth daily. 0 12/13/2021 Active montelukast (SINGULAIR) 10 MG tablet Take 10 mg by mouth. 0 Acti ve Olopatadine HCl (PATANASE NA) 2 sprays, 2 times a day, prn, 0 Refills, 04/02/09 15:45:00 0 04/02/2009 Active omeprazole (PriLOSEC) 20 MG capsule Take 20 mg by mouth. 0 11/25/2012 Acti ve oseltamivir (Tamiflu) 75 MG capsule Tamiflu 75 mg capsule take 1 capsule by mouth twice a day 0 Active pantoprazole (PROTONIX) 40 MG tablet Take 40 mg by mouth. 0 Acti ve sucralfate (CARAFATE) 1 g tablet sucralfate 1 gram tablet 0 Active Tretinoin, Facial Wrinkles, ([place]) 0.02 % CREA Apply topically. 0 10/27/2011 Active Family History Medical History Relation Name Comments Diabetes Brother Hypertension Brother Cancer Mother Relation Name Status Comments Brother Mother Social History Tobacco Use Types Packs/Day Years Used Date Smoking Tobacco: Never Smokeless Tobacco: Never Sex and Gender Information Value Date Recorded Sex Assigned at Not on file Gender Identity Not on file Sexual Orientation Not on file Job Start Date Occupation Industry Not on file Not on file Not on file Last Filed Vital Signs Vital Sign Reading Time Taken Comments Blood Pressure - - Pulse - - Temperature - - Respiratory Rate - - Oxygen Saturation - - Inhaled Oxygen Concentration - - Weight 68.5 kg (151 lb) 06/20/2022 1:20 PM EDT Height 167.6 cm (5' 6 ) 06/20/2022 1:20 PM EDT Body Mass Index 24.37 06/20/2022 1:20 PM EDT Plan of Treatment Health Maintenance Due Date Last Done Comments Hepatitis C Screening 1950 COVID-19 Vaccine (#1) 01/12/1950 Depression Screening 1961 Preventative Health Evaluation 1967 DTap / Tdap / Td (1 - Tdap) 1968 Colon Cancer Screening (Colonoscopy) 1994 Shingrix-Zoster Vaccine (1 of 2) 1999 Fall Risk Assessment 2014 Osteoporosis Screening (DEXA Scan) 2014 Pneumococcal Vaccine (1 of 1 - PCV) 2014 RSV Adult > 60+ Yrs or Pregn ant (1 - 1-dose 75+ series) 2024 Influenza Vaccine (#1) 2025 Hepatitis B Vaccines Aged Out No long er eligible based on patient's age to complete this topic RSV Ped < 20 months Aged Out No longe r eligible based on patient's age to complete this topic Care Teams Posting Machine Operator Relationship Specialty Start Date End Date Orion Vaca MD PCP - General Internal Medicine 03/03/21
--- OUTSIDE RECORDS SUMMARY | 2025-05-12 12:25 | XMS_ITS | Patient Health Record ---
Author Organization [facility] Address [address] [place] [address] Care Team Providers Care Radio Program Director Name Role Phone Orion Vaca MD Primary Care Provider UnavailPhylicia Pedraza Unavailable [phone] Allergies Allergen (clinical drug ingredient) Drug/Non Drug Allergy documented on EMR Reaction Allergy Type [place] Date Status ibuprofen Advil Unknown Drug Allergy Active ciprofloxacin Cipro hives Drug Allergy Act yoseph Motrin Unknown Drug Allergy Active Novocain heart races Drug Allergy Activ e sulfa hives Drug Allergy Active Penicillin hives Drug Allergy Active erythromycin erythromycin Unknown Drug Allergy A ctive adhesive tape rash Drug Allergy Act yoseph Z Pac hives Drug Allergy Active Shrimp/Shell Fish Unknown Drug Allergy Active latex rash Drug Allergy Active Reason For Referral No Information Medications Medication SIG (Take, Route, Fr equency, Duration) Notes Start Date End Date Status Synthroid Active Singulair Active atenolol Active Vivelle-Dot Active Luvox CR Active iron Active Omeprazole Active Vitamins To Go Women Active Shoes . . . Medically necess joseph to wear comfortable shoes at work; Duration: as needed 12/12/2017 Active Social History Tobacco Use: Social History Observation Description Date Details (start date - stop date) Never Smoker NA - NA Tobacco Use/Smoking Question Answer Notes Are you a: nonsmoker Additional Findings: Tobacco Non-User Current no n-smoker Plan Of Treatment Pending Test Test Name Order Date X ray : Foot, left 3V 12/12/2017 Insurance Providers Payer Name Payer Address Payer Phone Subscriber Number Group Number Insured Name Patient Relationship to Insured Coverage Start Date Coverage End Date Medicare National [employer] [address] [place] [address] [phone] [id number] Rafaela Oh Self - patient is the insured for Life [address] [place] [id number] [phone] [id number] Rafaela Oh Self - patient is the insured Medical (General) History Medical History History ICD Code Anemia, folic acid deficiency Anemia asthma Back,Hip,and Knee pain Gall bladder problems Hiatal hernia Numbness Raynauds syndrome Scarlet fever chronic sinusitis Thyroid disorder Measles Mumps Chicken pox Surgical History Surgery Date(Month/Year) appendectomy 1962 tonsillectomy 1954 section 1969,1971,1982 gall bladder 1980 thyroidectomy 1994 hysterectomy 1998
--- OUTSIDE RECORDS SUMMARY | 2025-05-12 12:25 | XMS_ITS | Encounter Summary ---
Author Organization [facility] Address [address] [place] [address] Phone Care Team Providers Care Process Eng Name Role Phone Orion Vaca MD Primary Care Provider [phone] Vidhi Lutz MD Unavailable Orion Vaca MD Unavailable [phone] Encounter Details Date Type Department Care Team (Late st Contact Info) Description 08/07/2017 Procedure [facility], Ct Scan - [address] [address] Social History Tobacco Use Types Packs/Day Years [...] on filedocumented in this encounter Care Teams Process Eng Relationship Specialty Start Date End Date Orion Vaca MD PCP - General 07/05/17 Vidhi Lutz MD [address] [place] [address], [address] [place] [address] [email or web address] Historical LMR Provider 07/07/17 Orion Vaca MD [address] [place] [address] Historical LMR Provider 07/07/17 2 documented as of this encounter Additional Source Comments The information contained in this document represents components of the legal health record. It is not the complete legal health record.[facility]
--- OUTSIDE RECORDS SUMMARY | 2025-05-12 12:25 | XMS_ITS | Encounter Summary ---
Author Organization [facility] Address [address] [place] [address] Phone Care Team Providers Care Dictating Machine Typist Name Role Phone Orion Vaca MD Primary Care Provider [phone] Vidhi Lutz MD Unavailable [phone] Encounter Details Date Type Department Care Team (Latest Contact Info) Description 12/12/2023 Transcribe Orders [facility] [address] [id number] Juana Kruse PA [address] [place] [address] Diarrhea, unspecified type (Primary Dx) Social History Tobacco Use Types [...] documented as of this encounter Results * Lipase (12/12/2023 9:13 AM EDT) LIPASE 26 16 - 63 U/L [facility] Blood 12/12/2023 9:13 AM EDT 12/12/2023 9:16 AM EDT us Juana [facility] BLOOD ORDERABLES Final Result Performing Organization Address City/State/[facility] Co de Phone Number [address] [address] * (ABNORMAL) Comprehensive metabolic panel (12/12/2023 9:13 AM EDT) SODIUM 138 133 - 146 mmol/L [facility] POTASSIUM 4.1 3.3 - 5.1 mmol/L [facility] CHLORIDE 100 96 - 108 mmol/L [facility] CO2 29 21 - 35 mmol/L [facility] BUN 10 6 - 19 mg/dL [facility] CREATININE 0.80 0.5 - 1.5 mg/dL [facility] GLUCOSE 103(H) 70 - 99 mg/dL [facility] ALBUMIN 4.2 3.9 - 4.8 g/dL [facility] TOTAL PROTEIN 7.6 6.5 - 8.0 g/dL [facility] CALCIUM 9.2 8.4 - 10.3 mg/dL [facility] ALKALINE PHOSPHATASE 88 39 - 117 U/L [facility] TOTAL BILIRUBIN 0.5 0.0 - 1.2 mg/dL [facility] AST 27 0 - 37 U/L [facility] ALT 17 0 - 40 U/L [facility] GLOBULIN 3.4 1 - 4.8 g/dL [facility] EGFR 77 >59 mL/min/1.7 3m2 [facility] Comment:Estimated glomerular filtration rate calculated using the CKD-EPI refit equation. ANION GAP 13 10 - 20 mmol/L [facility] Blood 12/12/2023 9:13 AM EDT 12/12/2023 9:16 AM EDT us Juana [facility] BLOOD ORDERABLES Final Result [facility] [address] [place] [address] * CBC and differential (12/12/2023 9:13 AM EDT) WBC 4.65 4.00 - 11.00 K/uL [facility] RBC 4.84 3.72 - 5.30 M/uL [facility] HGB 13.7 11.4 - 15.9 g/dL [facility] HCT 42.0 34.2 - 46.8 % [facility] PLT 254 140 - 430 K/uL [facility] MCV 86.8 78.0 - 97.0 fL [facility] MCH 28.3 25.0 - 33.0 pg [facility] MCHC 32.6 32.0 - 36.0 g/dL [facility] RDW 12.4 11.0 - 16.0 % [facility] MPV 9.7 8.4 - 12.8 fl [facility] DIFF METHOD Auto [facility] NEUTS 48.3 43.0 - 75.0 % [facility] LYMPHS 35.9 18.2 - 47.4 % [facility] MONOS 10.8 4.00 - 11.00 % [facility] EOS 3.9 0.0 - 8.0 % [facility] BASOS 0.9 0.0 - 2.0 % [facility] Granulocytes, immature (%) 0.2 0.0 - 0.9 % [facility] ABSOLUTE NEUTS 2.25 1.80 - 7.70 K/uL [facility] ABSOLUTE LYMPHS 1.67 1.00 - 3.10 K/uL [facility] ABSOLUTE MONOS 0.50 0.20 - 0.80 K/uL [facility] ABSOLUTE EOS 0.18 0.00 - 0.80 K/uL [facility] ABSOLUTE BASOS 0.04 0.00 - 0.09 K/uL [facility] Granulocytes, immature 0.01 0.00 - 0.05 K/uL [facility] Blood 12/12/2023 9:13 AM EDT 12/12/2023 9:16 AM EDT us [facility] BLOOD ORDERABLES Final Result [facility] [address] [place] [address] documented in this encounter Visit Diagnoses Diagnosis Diarrhea, unspecified type- Primary documented in this encounter Care Teams Dictating Machine Typist Relationship Specialty Start Date End Date Orino Vaca MD PCP - General 07/05/17 Vidhi Lutz MD [address] [place] [address], [facility] [address] [place] [address] [email or web address] Historical LMR Provider 07/07/17 documented as of this encounter Additional Source Comments The information contained in this document represents components of the legal health record. It is not the complete legal health record.[facility]
--- OUTSIDE RECORDS SUMMARY | 2025-05-12 12:25 | XMS_ITS | Encounter Summary ---
Author Organization [facility] Address [address] [place] [address] Phone Care Team Providers Care Electrician Second Name Role Phone Orion Vaca MD Primary Care Provider [phone] Vidhi Lutz MD Unavailable Orion Vaca MD Unavailable [phone] Encounter Details Date Type Department Care Team (Latest Contact Info) Description 09/25/2017 Transcribe Orders [facility] Laboratory [address] [address] Juana Kruse PA 10 [place], [place] [id number] Blood loss anemia (Primary Dx); Reflux esophagitis Social History Tobacco Use Types Packs/Day Years [...] documented as of this encounter Results * Vitamin A (09/25/2017 2:16 PM EST) VITAMIN A 56.5 32.5 - 78.0 mcg/dL [facility] MED[facility]PATH SUPERIOR Comment: (NOTE) ADDITIONAL INFORMATION This test was developed and its performance characteristics determined by [facility] in a manner consistent with CLIA requirements. This test has not been cleared or approved by the U.S. Food and Drug Administration. Blood 09/25/2017 2:16 PM EST 09/25/2017 2:28 PM EST Juana ASHER LAB BLOOD ORDERABLES Final Result Performing Organization Address [facility] de Phone Number [facility] MED/PATH [address] [address] * Vitamin K (09/25/2017 2:16 PM EST) [facility] VITAMIN K1 0.59 0.10 - 2.20 ng/mL [facility]PER[facility] Comment: (NOTE) ADDITIONAL INFORMATION This test was developed and its performance characteristics determined by [facility] in a manner consistent with CLIA requirements. This test has not been cleared or approved by the U.S. Food and Drug Administration. Blood 09/25/2017 2:16 PM EST 09/25/2017 2:28 PM EST Juana ASHER LAB BLOOD ORDERABLES Final Result Performing Organization Address [facility] de Phone Number [facility] MED/PATH [address] [address] * Vitamin E (09/25/2017 2:16 PM EST) [facility] VIT E, A-TOCOPHEROL 16.1 5.5 - 17.0 mg/L [facility] Comment: (NOTE) ADDITIONAL INFORMATION This test was developed and its performance characteristics determined by [facility] in a manner consistent with CLIA requirements. This test has not been cleared or approved by the U.S. Food and Drug Administration. Blood 09/25/2017 2:16 PM EST 09/25/2017 2:28 PM EST Juana ASHER LAB BLOOD ORDERABLES Final Result [facility] MED/PATH [facility] [address] [place] [address] * Tissue transglutaminase IgA (09/25/2017 2:16 PM EST) TTG IGA ANTIBODY <1.2 <4.0 (Negative) U/mL [facility] DPT OF LAB MED AND PAT+ Blood 09/25/2017 2:16 PM EST 09/25/2017 2:28 PM EST Juana ASHER LAB BLOOD ORDERABLES Final Result Performing Organization Address [facility] Co de Phone Number [facility] DPT OF LAB MED AND PAT+ [address] [place] [address] * Immunoglobulin A (09/25/2017 2:16 PM EST) IgA 371 70 - 400 mg/dL [facility] Blood 09/25/2017 2:16 PM EST 09/25/2017 2:28 PM EST Juana ASHER LAB BLOOD ORDERABLES Final Result Performing Organization Address City/[facility] Co de Phone Number [facility] [address] [place] [address] * Magnesium (09/25/2017 2:16 PM EST) MAGNESIUM 2.3 1.6 - 2.6 mg/dL [facility] Blood 09/25/2017 2:16 PM EST 09/25/2017 2:28 PM EST Juana ASHER LAB BLOOD ORDERABLES Final Result Performing Organization Address [facility] Co de Phone Number [address] [address] * Zinc (09/25/2017 2:16 PM EST) ZINC 0.78 0.66 - 1.10 mcg/mL [facility] Comment: (NOTE) ADDITIONAL INFORMATION This test was developed and its performance characteristics determined by [facility] in a manner consistent with CLIA requirements. This test has not been cleared or approved by the U.S. Food and Drug Administration. Blood 09/25/2017 2:16 PM EST 09/25/2017 2:28 PM EST Juana ASHER LAB BLOOD ORDERABLES Final Result Performing Organization Address [facility] de Phone Number [facility] MED/[facility] [address] [place] [address] * 25-OH vitamin D (09/25/2017 2:16 PM EST) 25 [place] VIT D (TOTAL) 41 30 - 1,000 ng/mL [facility] Blood 09/25/2017 2:16 PM EST 09/25/2017 2:28 PM EST Juana ASHER LAB BLOOD ORDERABLES Final Result Performing Organization Address [facility] Co de Phone Number [address] [address] * (ABNORMAL) Vitamin B12 (09/25/2017 2:16 PM EST) VITAMIN B12 1,611(H) 243 - 894 pg/mL [facility] Blood 09/25/2017 2:16 PM EST 09/25/2017 2:28 PM EST us Juana ASHER LAB BLOOD ORDERABLES Final Result Performing Organization Address [facility]/ZIP Co de Phone Number [address] [address] * (ABNORMAL) Folate (09/25/2017 2:16 PM EST) FOLIC ACID >20.0(H) 4.2 - 19.9 ng/mL [facility] Blood 09/25/2017 2:16 PM EST 09/25/2017 2:28 PM EST us [facility] A[facility]ER LAB BLOOD ORDERABLES Final Result Performing Organization Address [facility] Co de Phone Number [address] [address] * Ferritin (09/25/2017 2:16 PM EST) FERRITIN 94 13 - 150 ug/L [facility] Blood 09/25/2017 2:16 PM EST 09/25/2017 2:28 PM EST us [facility] LAB BLOOD ORDERABLES Final Result Performing Organization Address [facility] Co de Phone Number [address] [address] * (ABNORMAL) Comprehensive metabolic panel (09/25/2017 2:16 PM EST) SODIUM 141 133 - 146 mmol/L [facility] POTASSIUM 4.4 3.3 - 5.1 mmol/L [facility] CHLORIDE 104 96 - 108 mmol/L [facility] CO2 27 21 - 35 mmol/L [facility] BUN 21(H) 6 - 19 mg/dL [facility] CREATININE 0.70 0.5 - 1.5 mg/dL [facility] GLUCOSE 90 70 - 99 mg/dL [facility] ALBUMIN 4.1 3.9 - 4.8 g/dL [facility] TOTAL PROTEIN 7.3 6.5 - 8.0 g/dL [facility] CALCIUM 8.8 8.4 - 10.3 mg/dL [facility] ALKALINE PHOSPHATASE 59 39 - 117 U/L [facility] TOTAL BILIRUBIN 0.3 0 - 1.2 mg/dL [facility] AST 22 0 - 37 U/L [facility] ALT 21 0 - 40 U/L [facility] GLOBULIN 3.2 1 - 4.8 g/dL [facility] EGFR >60 >60 mL/min/1.7 3m2 [facility] Comment:Abnormal if <60. If patient is -Congolese, multiply the result by 1.21. ANION GAP 14 10 - 20 mmol/L [facility] Blood 09/25/2017 2:16 PM EST 09/25/2017 2:28 PM EST us [facility] A[facility] BLOOD ORDERABLES Final Result Performing Organization Address City/State/[facility] Co de Phone Number [facility] [address] [place] [address] * CBC and differential (09/25/2017 2:16 PM EST) WBC 5.98 3.40 - 11.20 K/uL [facility] RBC 4.51 3.80 - 4.80 M/uL [facility] HGB 13.2 12.0 - 15.0 g/dL [facility] HCT 39.3 36.0 - 46.0 % [facility] PLT 203 130 - 400 K/uL [facility] MCV 87.1 79.0 - 98.0 fL [facility] MCH 29.3 27.0 - 34.8 pg [facility] MCHC 33.6 31.5 - 36.0 g/dL [facility] RDW 12.9 10.8 - 14.6 % [facility] MPV 9.9 9.4 - 12.4 fl [facility] NRBC 0.00 /100 WBCs [facility] ABSOLUTE NRBC 0.00 K/uL [facility] DIFF METHOD Auto [facility] NEUTS 60.2 45.30 - 77.70 % [facility] LYMPHS 29.8 12.30 - 39.70 % [facility] MONOS 7.2 4.10 - 12.80 % [facility] EOS 1.8 0 - 7.2 % [facility] BASOS 0.7 0 - 2.80 % [facility] Granulocytes, immature (%) 0.3 0.0 - 0.9 % [facility] ABSOLUTE NEUTS 3.60 1.40 - 7.70 K/uL [facility] ABSOLUTE LYMPHS 1.78 0.60 - 3.20 K/uL [facility] ABSOLUTE MONOS 0.43 0.11 - 0.59 K/uL [facility] ABSOLUTE EOS 0.11 0.01 - 0.50 K/uL [facility] ABSOLUTE BASOS 0.04 0.00 - 0.08 K/uL [facility] Granulocytes, immature 0.02 0.00 - 0.05 K/uL [facility] Blood 09/25/2017 2:16 PM EST 09/25/2017 2:28 PM EST us [facility] BLOOD ORDERABLES Final Result Performing Organization Address City/State/[facility] Co de Phone Number [facility] [address] [place] [address] documented in this encounter Visit Diagnoses Diagnosis Blood loss anemia- Primary Acute posthemorrhagic anemia Reflux esophagitis documented in this encounter Care Teams Electrician Second Relationship Specialty Start Date End Date Orion Vaca MD PCP - General 07/05/17 Vidhi Lutz MD [address] [place] [address], [address] [place] [address] [email or web address] Historical LMR Provider 07/07/17 Orion Vaca MD [address] [place] [address] Historical LMR Provider 07/07/17 2 documented as of this encounter Additional Source Comments The information contained in this document represents components of the legal health record. It is not the complete legal health record.[facility]
--- OUTSIDE RECORDS SUMMARY | 2025-05-12 12:25 | XMS_ITS | Encounter Summary ---
Author Organization [facility] Address [address] [place] [address] Phone Care Team Providers Care Lobby Attendant Name Role Phone Orion Vaca MD Primary Care Provider [phone] Vidhi Lutz MD Unavailable Orion Vaca MD Unavailable [phone] Encounter Details Date Type Department Care Team (Late st Contact Info) Description 10/06/2017 Procedure Pass [facility], Ct Scan - [address] [address] Social History Tobacco Use Types Packs/Day Years [...] on filedocumented in this encounter Care Teams Lobby Attendant Relationship Specialty Start Date End Date Orion Vaca MD PCP - General 07/05/17 Vidhi Lutz MD [address] [place] [address], [address] [place] [address] [email or web address] Historical LMR Provider 07/07/17 Orion Vaca MD [address] [place] [address] Historical LMR Provider 07/07/17 2 documented as of this encounter Additional Source Comments The information contained in this document represents components of the legal health record. It is not the complete legal health record.[facility]
--- OUTSIDE RECORDS SUMMARY | 2025-05-12 12:25 | XMS_ITS | Encounter Summary ---
Author Organization [facility] Address [address] [place] [address] Phone Care Team Providers Care Custom Leather Products Maker Name Role Phone Orion Vaca MD Primary Care Provider [phone] Vidhi Lutz MD Unavailable [phone] Orion Vaca MD Unavailable [phone] Encounter Details Date Type Department Care Team (Latest Contact Info) Description 12/10/2018 Transcribe Orders [facility] Laboratory [address] [address] Juana Kruse PA 10 [place], [place] [id number] GERD with esophagitis (Primary Dx); Iron deficiency anemia, unspecified iron [...] documented as of this encounter Results * (ABNORMAL) Ferritin (12/10/2018 11:12 AM EDT) FERRITIN 189(H) 13 - 150 ug/L [facility] Blood 12/10/2018 11:1 2 AM EDT 12/10/2018 11:27 AM EDT us Juana ASHER LAB BLOOD ORDERABLES Final Result Performing Organization Address [facility]/ZIP Co de Phone Number [address] [address] * TSH (12/10/2018 11:12 AM EDT) TSH 1.93 0.27 - 4.20 uIU/mL [facility] Blood 12/10/2018 11:1 2 AM EDT 12/10/2018 11:27 AM EDT Juana ASHER LAB BLOOD ORDERABLES Final Result Performing Organization Address [facility]/ZIP Co de Phone Number [address] [address] * Iron and iron binding capacity (12/10/2018 11:12 AM EDT) Pathologist [facility] IRON 100 30 - 160 ug/dL [facility] IRON BINDING CAPACITY 272 228 - 428 ug/dL [facility] TRANSFERRIN SATURAT. 37 15 - 50 % [facility] Blood 12/10/2018 11:1 2 AM EDT 12/10/2018 11:27 AM EDT Juana ASHER LAB BLOOD ORDERABLES Final Result Performing Organization Address [facility] Co de Phone Number [address] [address] * (ABNORMAL) CBC (12/10/2018 11:12 AM EDT) WBC 5.93 3.40 - 11.20 K/uL [facility] RBC 4.82(H) 3.80 - 4.80 M/uL [facility] HGB 14.3 12.0 - 15.0 g/dL [facility] HCT 42.7 36.0 - 46.0 % [facility] PLT 221 130 - 400 K/uL [facility] MCV 88.6 79.0 - 98.0 [facility] MCH 29.7 27.0 - 34.8 pg [facility] MCHC 33.5 31.5 - 36.0 g/dL [facility] RDW 12.7 10.8 - 14.6 % [facility] MPV 10.4 9.4 - 12.4 [facility] NRBC 0.00 0.00 /100 WBCs [facility] ABSOLUTE NRBC 0.00 0.00 K/uL [facility] Blood 12/10/2018 11:1 2 AM EDT 12/10/2018 11:27 AM EDT us Juana ASHER LAB BLOOD ORDERABLES Final Result Performing Organization Address City/State/[facility] Co de Phone Number [facility] [address] [place] [address] documented in this encounter Visit Diagnoses Diagnosis GERD with esophagitis- Primary Iron deficiency anemia, unspecified iron deficiency anemia type documented in this encounter Care Teams Custom Leather Products Maker Relationship Specialty Start Date End Date Orion Vaca MD PCP - General 07/05/17 Vidhi Lutz MD [address] [place] [address], [facility] [address] [place] [address] [email or web address] Historical LMR Provider 07/07/17 Orion Vaca MD [address] [place] [address] Historical LMR Provider 07/07/17 2 documented as of this encounter Additional Source Comments The information contained in this document represents components of the legal health record. It is not the complete legal health record.[facility]
--- OUTSIDE RECORDS SUMMARY | 2025-05-12 12:25 | XMS_ITS | Encounter Summary ---
Author Organization [facility] Address [address] [place] [address] Phone Care Team Providers Care Paraprofessional Education Assistant Name Role Phone Orion Vaca MD Primary Care Provider [phone] Vidhi Lutz MD Unavailable [phone] Orion Vaca MD Unavailable [phone] Encounter Details Date Type Department Care Team (Latest Contact Info) Description 07/13/2020 Transcribe Orders Virtual Department [address] [place] [address] Catarino Figueroa MD [address] [place] [id number] [email or web address] Encounter for laboratory testing for COVID-19 virus (Primary Dx) Social History Tobacco Use Types [...] documented as of this encounter Results * COVID-19 PCR Order (07/16/2020 2:40 PM EDT) Specimen Source 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 NO [facility] Other 07/16/2020 2:40 PM EDT 07/16/2020 2:42 PM EDT Catarino Figueroa MD BODY FLUIDS AND STOOLS ORD ERABLES Final Result [facility] [address] [place] [address] documented in this encounter Visit Diagnoses Diagnosis Encounter for laboratory testing for COVID-19 virus- Primary documented in this encounter Care Teams Paraprofessional Education Assistant Relationship Specialty Start Date End Date Orion Vaca MD PCP - General 07/05/17 Vidhi Lutz MD [address] [facility], [address] [place] [address] [email or web address] Historical LMR Provider 07/07/17 Orion Vaca MD [address] [place] [address] Historical LMR Provider 07/07/17 2 documented as of this encounter Additional Source Comments The information contained in this document represents components of the legal health record. It is not the complete legal health record.[facility]
--- OUTSIDE RECORDS SUMMARY | 2025-05-12 12:26 | XMS_ITS | Encounter Summary ---
Author Organization [facility] Address [address] [place] [address] Phone Care Team Providers Care Mercantile Reporter Name Role Phone Orion Vaca MD Primary Care Provider [phone] Vidhi Lutz MD Unavailable [phone] Encounter Details Date Type Department Care Team (Late st Contact Info) Description 01/17/2024 Procedure Pass [facility] Endoscopy Admitting Dept Virtual Department [address] [place], [place] [id number] Social History Tobacco Use Types Packs/Day Years Used Date Smoking Tobacco: Never Smokeless Tobacco: Never Alcohol Use Standard Drinks/Week Comments Not Currently 0 (1 standard drink = 0.6 oz pur e alcohol) none since 09/2023 Education Answer Date Recorded Are you interested in more education? Not on elian e 01/11/2023 Are you concerned about learning? Not on file 01/11/2023 No 01/11/2023 No 01/11/2023 Digital Access Answer Date Recorded No 02/12/2023 No 02/12/2023 Reliable internet access at home? Not on file 02/12/2023 Device with a working camera? Not on file Intimate Partner Violence Answer Date R ecorded Are you denied basic needs s uch as food, clothing, or medical care? No 01/17/2024 In the past 12 months have y ou been in a relationship with a person who hurts, threatens, or tries to control you? No 01/17/2024 Are you denied basic needs s uch as food, clothing, or medical care? No 01/17/2024 In the past 12 months have y ou been in a relationship with a person who hurts, threatens, or tries to control you? No 01/17/2024 Comments No Sex and Gender Information Value Date Recorded Sex Assigned at Not on file Legal Sex Female 8:03 PM EST Gender Identity Not on file Sexual Orientation Not on file documented as of this encounter Plan of Treatment Not on file documented as of this encounter Visit Diagnoses Not on filedocumented in this encounter Care Teams Mercantile Reporter Relationship Specialty Start Date End Date Orion Vaca MD PCP - General 07/05/17 Vidhi Lutz MD [address] [place] [address], [address] [address] [email or web address] Historical LMR Provider 07/07/17 documented as of this encounter Additional Source Comments The information contained in this document represents components of the legal health record. It is not the complete legal health record.[facility]
--- OUTSIDE RECORDS SUMMARY | 2025-05-12 12:26 | XMS_ITS | Encounter Summary ---
Author Organization [facility] Address [address] [place] [address] Phone Care Team Providers Care Telecasting Technician Name Role Phone Orion Vaca MD Primary Care Provider [phone] Vidhi Lutz MD Unavailable [phone] Orion Vaca MD Unavailable [phone] Reason for Referral * MRI/CAT Scan - Closed Specialty Diagnoses / Procedures Referred By Remigio [email or web address] Referred To Contact Radiology Diagnoses Other allergic rhinitis Nasal congestion Procedures CT Face Khris Golden MD Phone: tel: fax: [email or web address] Referral ID Status Reason Start Date Expiration Date Visits Re quested Visits Authorized [id number] Closed 08/07/2017 08/07/2018 1 1 Encounter Details Date Type Department Care Team (Late st Contact Info) Description 08/07/2017 Ancillary Orders Virtual Department [address] [place] [address] Khris Golden MD [address] [facility], [address] [place] [address] [email or web address] Other allergic rhinitis; Nasal congestion Social History Tobacco Use Types Packs/Day Years Used Date Smoking Tobacco: Never Assessed Comments Unknown Sex and Gender Information Value Date Recorded Sex Assigned at Not on file Legal Sex Female 8:03 PM EST Gender Identity Not on file Sexual Orientation Not on file documented as of this encounter Plan of Treatment Not on file documented as of this encounter Results * CT FACE WITHOUT CONTRAST (11/06/2017 10:38 AM EST) Anatomical Region Laterality Modality Face Computed Tomogra phy 11/06/2017 10:3 4 AM EST Impressions 11/06/2017 10:39 AM EST Chronic left sphenoid sinus disease. TOTAL CTDIvol: 21.6 mGy POS - [id number] Narrative 11/06/2017 10:39 AM EST COMPARISON: None. TECHNIQUE: CT of the facial bones without contrast. Sagittal and coronal reformats generated. Automated exposure control utilized. CT FACIAL BONES/SINUSES FINDINGS: Brain: Imaged brain is normal. Orbits: Normal. Soft tissue: Normal. Bones/sinuses: Chronic left sphenoid sinus fluid opacification and hyperostosis. No air-fluid levels. Ostiomeatal unit complexes are patent. Mild left nasoseptal deviation. No nasal polyps or destructive bone lesions. Procedure Note Montana Trejo MD - 11/06/2017 COMPARISON: None. TECHNIQUE: CT of the facial bones without contrast. Sagittal and coronalreformats generated. Automated exposure control utilized. CT FACIAL BONES/SINUSES FINDINGS: Brain: Imaged brain is normal. Orbits: Normal. Soft tissue: Normal. Bones/sinuses: Chronic left sphenoid sinus fluid opacification andhyperostosis. No air-fluid levels. Ostiomeatal unit complexes arepatent. Mild left nasoseptal deviation. No nasal polyps or destructivebone lesions. IMPRESSION: Chronic left sphenoid sinus disease. TOTAL CTDIvol: 21.6 mGy POS - [id number] Khris Golden MD IMG CT HEAD/NECK Final R esult documented in this encounter Visit Diagnoses Diagnosis Other allergic rhinitis Nasal congestion Other diseases of nasal cavity and sinuses Other allergic rhinitis Nasal congestion Other diseases of nasal cavity and sinuses documented in this encounter Care Teams Telecasting Technician Relationship Specialty Start Date End Date Orion Vaca MD PCP - General 07/05/17 Vidhi Lutz MD [address] [place] [address], [address] [place] [address] [email or web address] Historical LMR Provider 07/07/17 Orion Vaca MD [address] [place] [address] Historical LMR Provider 07/07/17 2 documented as of this encounter Additional Source Comments The information contained in this document represents components of the legal health record. It is not the complete legal health record.[facility]
--- OUTSIDE RECORDS SUMMARY | 2025-05-12 12:26 | XMS_ITS | Encounter Summary ---
Author Organization [facility] Address [address] [place] [address] Phone Care Team Providers Care Veneer Stock Layer Name Role Phone Orion Vaca MD Primary Care Provider [phone] Vidhi Lutz MD Unavailable [phone] Encounter Details Date Type Department Care Team (Latest Contact Info) Description 03/02/2025 Transcribe Orders [facility] [address] [id number] Juana Kruse PA [address] [place] [address] Slow transit constipation (Primary Dx); Abdominal pain, right upper quadrant Social History Tobacco Use Types Packs/Day Years [...] documented as of this encounter Results * Iron and iron binding capacity (03/16/2025 2:51 PM EDT) IRON 73 30 - 160 ug/dL [facility] IRON BINDING CAPACITY 285 228 - 428 ug/dL [facility] TRANSFERRIN SATURAT. 26 15 - 50 % [facility] Blood 03/16/2025 2:51 PM EDT 03/16/2025 2:56 PM EDT us Juana ASHER LAB BLOOD ORDERABLES Final Result Performing Organization Address City/State/[facility] Co de Phone Number [facility] [address] [place], [place] [phone] * CBC (03/16/2025 2:51 PM EDT) WBC 4.21 4.00 - 11.00 K/uL [facility] RBC 4.12 4.00 - 5.20 M/uL [facility] HGB 12.2 12.0 - 16.0 g/dL [facility] HCT 37.5 36.0 - 46.0 % [facility] PLT 190 150 - 450 K/uL [facility] MCV 91.0 80.0 - 100.0 fL [facility] MCH 29.6 27.0 - 31.0 pg [facility] MCHC 32.5 32.0 - 36.0 g/dL [facility] RDW 12.9 11.5 - 14.5 % [facility] MPV 10.7 8.4 - 12.0 fL [facility] NRBC 0.00 0.00 /100 WBCs [facility] ABSOLUTE NRBC 0.00 0.00 K/uL [facility] Blood 03/16/2025 2:51 PM EDT 03/16/2025 2:56 PM EDT Juana ASHER LAB BLOOD ORDERABLES Final Result Performing Organization Address [facility] [place] [facility]/ZIP Co de Phone Number [address] [address] * (ABNORMAL) Immunoglobulin A (03/16/2025 2:51 PM EDT) IgA 426(H) 70 - 400 mg/dL [facility] Blood 03/16/2025 2:51 PM EDT 03/16/2025 2:56 PM EDT Juana ASHER LAB BLOOD ORDERABLES Final Result Performing Organization Address [facility] [place] [facility] Co de Phone Number [address] [address] * Tissue transglutaminase IgA (03/16/2025 2:51 PM EDT) TTG IGA ANTIBODY <1.2 <4.0 (Negative) U/mL [facility] Blood 03/16/2025 2:51 PM EDT 03/16/2025 2:57 PM EDT Juana ASHER LAB BLOOD ORDERABLES Final Result Performing Organization Address [facility] [place] [facility] Co de Phone Number [facility] [address] [place] [address] documented in this encounter Visit Diagnoses Diagnosis Slow transit constipation- Primary Abdominal pain, right upper quadrant documented in this encounter Care Teams Veneer Stock Layer Relationship Specialty Start Date End Date Orion Vaca MD PCP - General 07/05/17 Vidhi Lutz MD [address] [place] [address], [address] [place] [address] [email or web address] Historical LMR Provider 07/07/17 documented as of this encounter Additional Source Comments The information contained in this document represents components of the legal health record. It is not the complete legal health record.[facility]
--- OUTSIDE RECORDS SUMMARY | 2025-05-12 12:26 | XMS_ITS | Encounter Summary ---
Author Organization [facility] Address [address] [employer] [place] [address] Phone Care Team Providers Care Top Coater Name Role Phone Orion Vaca MD Primary Care Provider [phone] Vidhi Lutz MD Unavailable [phone] Encounter Details Date Type Department Care Team (Late st Contact Info) Description 07/02/2024 Procedure Pass [facility], Ct Scan - [address] [address] Social History Tobacco Use Types Packs/Day Years [...] on filedocumented in this encounter Care Teams Top Coater Relationship Specialty Start Date End Date Orion Vaca MD PCP - General 07/05/17 Vidhi Lutz MD [address] [place] [id number] [email or web address] Historical LMR Provider 07/07/17 documented as of this encounter Additional Source Comments The information contained in this document represents components of the legal health record. It is not the complete legal health record.[facility]"
--- OUTSIDE RECORDS SUMMARY | 2025-05-12 12:26 | XMS_ITS | Encounter Summary ---
Author Organization [facility] Address [address] [place] [address] Phone Care Team Providers Care Sizing End Bander Name Role Phone Orion Vaca MD Primary Care Provider [phone] Vidhi Lutz MD Unavailable [phone] Encounter Details Date Type Department Care Team (Latest Contact Info) Description 07/18/2024 Transcribe Orders [facility] [address] [place], [place] [id number] Catarino Figueroa MD 10 [facility] 2 [place] [address] [email or web address] Weight loss (Primary Dx); Constipation, unspecified constipation type Social History Tobacco Use Types Packs/Day [...] as of this encounter Results * (ABNORMAL) Comprehensive metabolic panel (07/18/2024 9:52 AM EDT) SODIUM 134 133 - 146 mmol/L [facility] POTASSIUM 3.8 3.3 - 5.1 mmol/L [facility] CHLORIDE 99 96 - 108 mmol/L [facility] CO2 25 21 - 35 mmol/L [facility] BUN 13 6 - 19 mg/dL [facility] CREATININE 0.80 0.5 - 1.5 mg/dL [facility] GLUCOSE 90 70 - 99 mg/dL [facility] ALBUMIN 3.6(L) 3.9 - 4.8 g/dL [facility] TOTAL PROTEIN 6.5 6.5 - 8.0 g/dL [facility] CALCIUM 8.2(L) 8.4 - 10.3 mg/dL [facility] ALKALINE PHOSPHATASE 50 39 - 117 U/L [facility] TOTAL BILIRUBIN 0.7 0.0 - 1.2 mg/dL [facility] AST 20 0 - 37 U/L [facility] ALT 13 0 - 40 U/L [facility] GLOBULIN 2.9 1 - 4.8 g/dL [facility] EGFR 77 >59 mL/min/1.7 3m2 [facility] Comment:Estimated glomerular filtration rate calculated using the CKD-EPI refit equation. ANION GAP 14 10 - 20 mmol/L [facility] Blood 07/18/2024 9:52 AM EDT 07/18/2024 10:04 AM EDT Catarino Figueroa MD LAB BLOOD ORDERABLES Final Result Performing Organization Address City/[facility] Co de Phone Number [address] [address] * CBC (07/18/2024 9:52 AM EDT) WBC 6.40 4.00 - 11.00 K/uL [facility] RBC 4.35 4.00 - 5.20 M/uL [facility] HGB 12.7 12.0 - 16.0 g/dL [facility] HCT 37.9 36.0 - 46.0 % [facility] PLT 202 150 - 450 K/uL [facility] MCV 87.1 80.0 - 100.0 fL [facility] MCH 29.2 27.0 - 31.0 pg [facility] MCHC 33.5 32.0 - 36.0 g/dL [facility] RDW 12.8 11.5 - 14.5 % [facility] MPV 10.2 8.4 - 12.0 fL [facility] NRBC 0.00 0.00 /100 WBCs [facility] ABSOLUTE NRBC 0.00 0.00 K/uL [facility] Blood 07/18/2024 9:52 AM EDT 07/18/2024 10:04 AM EDT us Catarino Figueroa MD LAB BLOOD ORDERABLES Final Result Performing Organization Address City/[facility]/ZIP Co de Phone Number [address] [address] * Immunoglobulin A (07/18/2024 9:52 AM EDT) IgA 390 70 - 400 mg/dL [facility] Blood 07/18/2024 9:52 AM EDT 07/18/2024 10:04 AM EDT us Catarino Figueroa MD LAB BLOOD ORDERABLES Final Result [facility] [address] [place] [address] * Tissue transglutaminase IgA (07/18/2024 9:52 AM EDT) TTG IGA ANTIBODY <1.2 <4.0 (Negative) U/mL [facility] Blood 07/18/2024 9:52 AM EDT 07/18/2024 10:04 AM EDT us Catarino Figueroa MD LAB BLOOD ORDERABLES Final Result [facility] [address] [place] [address] documented in this encounter Visit Diagnoses Diagnosis Weight loss- Primary Loss of weight Constipation, unspecified constipation type documented in this encounter Care Teams Sizing End Bander Relationship Specialty Start Date End Date Orion Vaca MD PCP - General 07/05/17 Vidhi Lutz MD [address] [place] [id number] [email or web address] Historical LMR Provider 07/07/17 documented as of this encounter Additional Source Comments The information contained in this document represents components of the legal health record. It is not the complete legal health record.[facility]
--- OUTSIDE RECORDS SUMMARY | 2025-05-12 12:26 | XMS_ITS | Clinical Summary ---
Author Organization [facility] Address [address] [place] [address] Phone Care Team Providers Care Pipe Organ Mechanic Name Role Phone Halina South MD Primary Care Provider [phone] Vidhi Lutz MD Unavailable [phone] Allergies Active Allergy Reactions Criticality Noted Date Comments Amoxicillin Hives 08/05/2008 Epinephrine Palpitations High 09/24/2017 Erythromycin Hives 09/24/2017 Eugenol Unknown 08/05/2008 Iodinated Contrast Media 07/17/2019 Iodine 06/06/2018 Latex Rash Low 03/29/2020 Levofloxacin Hives 08/05/2008 Macrolide Antibiotics Hives 08/05/2008 Penicillins Other (See Comments) 08/05/2008 Nauseous Sulfamethoxazole-Trimethoprim Other (See Comments) 08/05/2008 Itching Medications LACTOBACILLUS RHAMNOSUS GG (CULTURELLE ORAL) Take 1 tablet by mouth daily. Active fluvoxaMINE (LUVOX) 25 MG tablet Take 25 mg by mouth nightly. Active cholecalciferol (VITAMIN D3) 2,000 unit tablet Take 2,000 Units by mouth daily. Active ascorbic acid, vitamin C, (VITAMIN C) 1000 MG tablet Take 1,000 mg by mouth daily. Active MULTIVIT-MINERA LS/FERROUS FUM (MULTI VITAMIN ORAL) Take 1 tablet by mouth daily. Active albuterol 90 mcg/actuation inhaler Inhale 2 puffs into the lungs every 6 (six) hours as needed for wheezing. Active metoprolol succinate (TOPROL-XL) 50 MG 24 hr tablet Take 50 mg by mouth daily. Active hydrALAZINE (APRESOLINE) 10 MG tablet Take 10 mg by mouth nightly at bedtime. Takes 5mg in the morning 01/14/2024 Active ALPRAZolam (XANAX) 0.5 MG tablet Take 0.5 mg by mouth nightly at bedtime as needed. 12/20/2020 Active famotidine (PEPCID) 40 MG tablet Take 40 mg by mouth nightly at bedtime as needed. 11/19/2020 Active fluticasone propionate (FLONASE) 50 mcg/actuation nasal spray 1 spray by Nasal route daily. 12/20/2020 Active levocetirizine (XYZAL) 5 MG tablet Take 5 mg by mouth every evening. 06/28/2021 Active levothyroxine (SYNTHROID, LEVOTHROID) 88 MCG tablet Take 88 mcg by mouth daily. 6 times a week-does not take on Sunday Active CALCIUM ORAL Take 1 tablet by mouth daily. Active Active Problems Problem Noted Date Diagnosed Date Other insomnia 03/29/2020 Assessment & Plan (03/29/2020 9:09 AM EDT): Listen to relaxation tapes every night prior to bedrest 8-12 wks Fibromyalgia 02/19/2019 Assessment & Plan (03/29/2020 8:56 AM EDT): We discussed the diagnosis of fibromyalgia, its natural history, and treatment. Specifically, we discussed that treatment requires many interventions and recognition that we are often unable to get patients completely pain free. Management of fibromyalgia requires patient engagement to address any underlying depression, anxiety, or sleep disorder. Further, patients are encouraged to engage in regular physical activity. Some studies have suggested that Phillip Chi is effective. Other physical activity may including water-based aerobics, yoga, biking, walking etc. In terms of pharmacotherapy, there are many options, including tricyclic antidepressants, duloxetine, gabapentin or pregabalin, and cyclobenzaprine as well as other similar medications to those listed. In this case, the patient might try to focus more on number pharmacologic measures secondary to multiple medication sensitivities/intolerance. She may benefit from reading book written by Dr Dany Flores Full catastrophe living regimen strategies for patients with fibromyalgia utilizing mindfulness approach. Assessment & Plan (08/20/2019 11:09 AM EST): We discussed the diagnosis of fibromyalgia, its natural history, and treatment. Specifically, we discussed that treatment requires many interventions and recognition that we are often unable to get patients completely pain free. Management of fibromyalgia requires patient engagement to address any underlying depression, anxiety, or sleep disorder. Further, patients are encouraged to engage in regular physical activity. Some studies have suggested that Phillip Chi is effective. Other physical activity may including water-based aerobics, yoga, biking, walking etc. In terms of pharmacotherapy, there are many options, including tricyclic antidepressants, duloxetine, gabapentin or pregabalin, and cyclobenzaprine as well as other similar medications to those listed. In this case, the patient might try to focus more on number pharmacologic measures secondary to multiple medication sensitivities/intolerance. She may benefit from reading book written by Dr Dany Flores Full catastrophe living regimen strategies for patients with fibromyalgia utilizing mindfulness approach. Carpal tunnel syndrome 02/19/2019 Assessment & Plan (03/29/2020 8:56 AM EDT): Avoid prolonged repetitive use of hands. Use wrist splints for extensive work and for nighttime as needed. Consider local steroid injection or surgical release if not better or worse. Assessment & Plan (08/20/2019 11:07 AM EST): Avoid prolonged repetitive use of hands. Use wrist splints for extensive work and for nighttime as needed. Consider local steroid injection or surgical release if not better or worse. Dyspnea on exertion 02/04/2018 Primary osteoarthritis involving multiple joints 09/24/2017 Assessment & Plan (03/29/2020 8:56 AM EDT): Joint protection, energy conservation. Gentle, regular exercise routine. Avoid falls, injuries, overuse. Topical cream versus patch as needed. Call if worse or with questions. Assessment & Plan (08/20/2019 11:05 AM EST): Joint protection, energy conservation. Gentle, regular exercise routine. Avoid falls, injuries, overuse. Topical cream versus patch as needed. Call if worse or with questions. Chronic fatigue 09/24/2017 Idiopathic peripheral neuropathy 09/24/2017 Assessment & Plan (03/29/2020 8:56 AM EDT): Close follow-up with neurologist as scheduled. Consider building up the dose of gabapentin as tolerated until either therapeutic effect achieved or side effects develop. Discuss other therapeutic options with neurologist. Assessment & Plan (08/20/2019 11:06 AM EST): Close follow-up with neurologist as scheduled. Consider building up the dose of gabapentin as tolerated until either therapeutic effect achieved or side effects develop. Discuss other therapeutic options with neurologist. Sicca syndrome 09/24/2017 Assessment & Plan (03/29/2020 8:57 AM EDT): Keep well-hydrated. Avoid spicy and acidic foods. Diligent mouth hygiene. Regular dental checkups. Assessment & Plan (08/20/2019 11:06 AM EST): Keep well-hydrated. Avoid spicy and acidic foods. Diligent mouth hygiene. Regular dental checkups. Raynaud's disease without gangrene 09/24/2017 Assessment & Plan (03/29/2020 8:57 AM EDT): Keep warm, dress in layers. Optimize stress management strategies. Avoid vasoconstrictors in OTC products for cold/flu and sinus. Assessment & Plan (08/20/2019 11:06 AM EST): Keep warm, dress in layers. Optimize stress management strategies. Avoid vasoconstrictors in OTC products for cold/flu and sinus. Muscle tightness 09/24/2017 Allergic rhinitis 08/05/2008 Overview (11/07/2014): allergic rhinitis; Due to other specified allergens Contact dermatitis 08/05/2008 Overview (11/07/2014): contact dermatitis Drug allergy 08/05/2008 Overview (11/07/2014): Drug allergy Encounters Date Type Department Care Team Description 03/16/2025 2:49 PM EDT - 03/16/2025 11:59 PM EDT Hospital Encounter [facility] Laboratory [address] [place] [address] Juana Kruse PA Discharge Disposition: Home or Self Care 03/04/2025 3:11 PM EDT - 03/04/2025 11:59 PM EDT Hospital Encounter [facility] Laboratory [address] [address] Juana Kruse PA Discharge Disposition: Home or Self Care 03/02/2025 2:46 PM EDT - 03/02/2025 11:59 PM EDT Hospital Encounter [facility] Laboratory [address] [address] Juana Kruse PA Discharge Disposition: Home or Self Care 03/02/2025 Transcribe Orders [facility] [address] [address] uJana Kruse PA Slow transit constipation (Primary Dx); Abdominal pain, right upper quadrant 03/02/2025 Transcribe Orders [facility] Laboratory [address] [address] Juana Kruse PA Slow transit constipation (Primary Dx); Abdominal pain, right upper quadrant from Last 3 Months Social History Tobacco Use Types Packs/Day Years [...] on file Sexual Orientation Not on file Last Filed Vital Signs Vital Sign Reading Time Taken Comments Blood Pressure 145/86 01/17/2024 9:44 AM EDT Pulse 80 01/17/2024 9:44 AM EDT Temperature 35.9 C (96.7 F) 01/17/2024 8:39 AM EDT Respiratory Rate 13 01/17/2024 9:44 AM EDT Oxygen Saturation 100% 01/17/2024 9:44 AM EDT Inhaled Oxygen Concentration - - Weight 59.9 kg (132 lb) 01/16/2024 8:48 AM EDT Height 167.6 cm (5' 6 ) 01/16/2024 8:48 AM EDT Body Mass Index 21.31 01/16/2024 8:48 AM EDT Plan of Treatment Health Maintenance Due Date Last Done Comments Adult Td,Tdap Booster 1950 LIPID PANEL 1950 DEPRESSION SCREENING 1961 HEPATITIS C SCREENING 1967 COLOGUARD 1994 FOBT 1994 SIGMOIDOSCOPY 1994 VIRTUAL COLONOSCOPY 1994 ZOSTER VACCINES (1 of 2) 1999 OSTEOPOROSIS SCREENING INITIAL (ONE-TIME) 2014 PNEUMOCOCCAL VACCINES (50+ years) (2 of 2 - PPSV23) 06/18/2019 06/18/2018 TSH LEVEL 07/04/2020 07/04/2019, 12/10/2018 COVID-19 VACCINE ( season) 2024 07/28/2022, 06/18/2022, 03/10/2022, Additional history exists RSV VACCINE (1 - 1-dose 75+ series) 2024 FIT TEST 03/04/2026 03/04/2025 COLONOSCOPY 01/16/2034 01/17/2024, 07/17/2019 COLORECTAL CANCER SCREENING 01/16/2034 SMOKING STATUS SCREENING (Once After 26 Yrs) Completed 01/17/2024 HEPATITIS A VACCINES Aged Out No long er eligible based on patient's age to complete this topic HIB VACCINES Aged Out No longer eligi ble based on patient's age to complete this topic MENINGOCOCCAL VACCINES (ACWY) Aged Out No longer eligible based on patient's age to complete this topic MENINGOCOCCAL VACCINES (B) Aged Out N o longer eligible based on patient's age to complete this topic Medical Devices Not on file Procedures Procedure Name Priority Date/Time Associated Diagnosis Comments TISSUE TRANSGLUTAMINASE IGA Routine 03/16/2025 2:51 PM EDT Slow transit constipation Abdominal pain, right upper quadrant IMMUNOGLOBULIN A Routine 03/16/2025 2:51 PM EDT Slow transit constipation Abdominal pain, right upper quadrant CBC Routine 03/16/2025 2:51 PM EDT Slow transit constipation Abdominal pain, right upper quadrant IRON AND IRON BINDING CAPACITY Routine 03/16/2025 2:51 PM EDT Slow transit constipation Abdominal pain, right upper quadrant HC BLOOD OCCULT FECAL HGB DETER IA QUAL FECES 1-3 Routine 03/04/2025 1:50 PM EDT Slow transit constipation Abdominal pain, right upper quadrant ENDOSCOPY, COLON 01/17/2024 8:38 AM EDT TSH Routine 07/04/2019 11:30 AM EDT Reflux esophagitis Other iron deficiency anemia from Last 3 Months or Most Recently Relevant to Health Maintenance Results * Iron and iron binding capacity (03/16/2025 2:51 PM EDT) IRON 73 30 - 160 ug/dL [facility] IRON BINDING CAPACITY 285 228 - 428 ug/dL [facility] TRANSFERRIN SATURAT. 26 15 - 50 % [facility] Blood 03/16/2025 2:51 PM EDT 03/16/2025 2:56 PM EDT us Juana A[facility] LAB BLOOD ORDERABLES Final Result Performing Organization Address City/[facility]/ZIP Co de Phone Number [facility] [address] [place] [address] * Tissue transglutaminase IgA (03/16/2025 2:51 PM EDT) TTG IGA ANTIBODY <1.2 <4.0 (Negative) U/mL [facility] LAB MED/[facility] Blood 03/16/2025 2:51 PM EDT 03/16/2025 2:57 PM EDT us Juana ASHER LAB BLOOD ORDERABLES Final Result Performing Organization Address City/[facility]/ZIP Co de Phone Number [facility] [address] [place] [address] * CBC (03/16/2025 2:51 PM EDT) WBC 4.21 4.00 - 11.00 K/uL [facility] RBC 4.12 4.00 - 5.20 M/uL [facility] HGB 12.2 12.0 - 16.0 g/dL [facility] HCT 37.5 36.0 - 46.0 % [facility] PLT 190 150 - 450 K/uL [facility] MCV 91.0 80.0 - 100.0 [facility] MCH 29.6 27.0 - 31.0 pg [facility] MCHC 32.5 32.0 - 36.0 g/dL [facility] RDW 12.9 11.5 - 14.5 % [facility] MPV 10.7 8.4 - 12.0 [facility] NRBC 0.00 0.00 /100 WBCs [facility] ABSOLUTE NRBC 0.00 0.00 K/uL [facility] Blood 03/16/2025 2:51 PM EDT 03/16/2025 2:56 PM EDT [facility] A[facility] LAB BLOOD ORDERABLES Final Result Performing Organization Address [facility]/ZIP Co de Phone Number [address] [address] * (ABNORMAL) Immunoglobulin A (03/16/2025 2:51 PM EDT) IgA 426(H) 70 - 400 mg/dL [facility] Blood 03/16/2025 2:51 PM EDT 03/16/2025 2:56 PM EDT Juana ASH[facility] LAB BLOOD ORDERABLES Final Result Performing Organization Address [facility] Co de Phone Number [address] [address] * Fecal immunochemical test x1 (FIT) (03/04/2025 1:50 PM EDT) Immuno Fecal Occult Negative Negative [facility] Stool (Stool) 03/04/2025 1:5 0 PM EDT 03/04/2025 3:13 PM EDT Juana ASHER BODY FLUIDS AND STOOLS ORDE RABLES Final Result Performing Organization Address [facility] Co de Phone Number [address] [address] * ENDOSCOPY, COLON (01/17/2024 8:38 AM EDT) Narrative Transcriptions Arnoldo Figueroa MD - 01/17/2024 8:38 AM EDT [facility] Patient Name: Rafaela Oh Attending MD:: ARNOLDO FIGUEROA MD, Procedure Date: 01/17/2024 8:38 AM Date of : 1950 Age: 73 Admit Type: Outpatient Gender: Female Room: [place] [address] Referring MD: HALINA SOUTH Exam Type: Colonoscopy Indications: Last colonoscopy: June 2019, Generalizedabdominal pain, Clinically significant diarrhea ofunexplained origin Medications: Propofol per Anesthesia Procedure: Informed consent was obtained from the patientafter discussion of the indications, limitations, alternatives, benefits, and risks of the procedure. Risks specifically discussed include but are not limited to medication reactions, missed lesions, bleeding, perforation, or the need for emergent surgery. Throughout the procedure, the patient's blood pressure, pulse, end-tidal CO2, and oxygensaturations were monitored continuously. The Olympus adult variable colonoscope CF-AB778G #2 was introduced through the anus and advanced to the cecum, identified by appendiceal orifice andileocecal valve. The ileocecal valve, appendiceal orifice,and rectum were photographed. The colonoscopy wassomewhat difficult due to a tortuous colon and the patient's cardiovascular instability (vasovagal reaction). Successful completion of the procedure was aided by applying abdominal pressure and management by anaesthesia. The quality of the bowel preparationwas excellent. The bowel preparation used was Miralaxvia split dose instruction. Complications: No immediate complications. Estimated blood loss:None. Findings: The digital rectal exam was normal. Pertinent negatives include no palpable rectal lesions. Hemorrhoids were found on perianal exam. The retroflexed view of the distal rectum and anal verge was normal and showed no anal or rectal abnormalities. The sigmoid colon and descending colon were significantly tortuous. A small polyp was found in the cecum. The polyp was sessile. The polyp was removed with a cold snare. Resection and retrieval were complete. The exam was otherwise without abnormality. Impression: - Hemorrhoids found on perianal exam. - The distal rectum and anal verge are normal on retroflexion view. - Tortuous colon. - One small polyp in the cecum, removed with a cold snare. Resected and retrieved. - The examination was otherwise normal. Recommendation: - If the pathology report reveals adenomatoustissue, then repeat the colonoscopy for surveillance in 5 years. - If the pathology report reveals no adenomatous tissue, then consider repeat the colonoscopy for screening purposes in 10 years. - Pediatric colonoscope would be helpful for future exams. ARNOLDO FIGUEROA MD 01/17/2024 9:25:18 AM This report has been signed electronically. Number of Addenda: 0 Note Initiated On: 01/17/2024 8:38 AM Procedure Code(s): --- Professional --- 18921, Colonoscopy, flexible; with removal of tumor(s), polyp(s), or other lesion(s) by snare technique --- Technical --- 33638, Colonoscopy, flexible; with removal of tumor(s), polyp(s), or other lesion(s) by snare technique Diagnosis Code(s): --- Professional --- K64.9, Unspecified hemorrhoids D12.0, Benign neoplasm of cecum R10.84, Generalized abdominal pain R19.7, Diarrhea, unspecified Q43.8, Other specified congenital malformations of intestine --- Technical --- K64.9, Unspecified hemorrhoids D12.0, Benign neoplasm of cecum R10.84, Generalized abdominal pain R19.7, Diarrhea, unspecified Q43.8, Other specified congenital malformations of intestine CPT copyright 2021 [employer]. All rights reserved. The codes documented in this report are preliminary and upon kitman reviewmay be revised to meet current compliance requirements. Procedure Date: 01/17/2024 8:38:[address] [place] [address] Halina South MD GI PROCEDURE ORDERABLES F inal Result * TSH (07/04/2019 11:30 AM EDT) TSH 1.15 0.27 - 4.20 uIU/mL [facility] Blood 07/04/2019 11:3 0 AM EDT 07/04/2019 11:47 AM EDT [facility] LAB BLOOD ORDERABLES Final Result [facility] [address] [place] [address] from Last 3 Months or Most Recently Relevant to Health Maintenance Insurance MEDICARE PART A & B Member Subscriber Plan / Payer (Ef fective 2014-Present) Name:Brian Oha Member ID:[id number] Relation to Subscriber:Self Name:Rafaela Oh Subscriber ID:[id number] Payer ID:[id number] Group ID:Not on file Type:Medicare Address: [facility] [address] [facility] [facility] [address] [place] [address] [facility] [employer] [facility] MEDICARE SUPPLEMENT MEDICARE PART A & B [employer] [place] [address] MEDICARE PART A & B [employer] MEDICARE SUPPLEMENT MEDICARE PART A & B [facility] [employer] MEDICARE SUPPLEMENT MEDICARE PART A & B [employer] MEDICARE SUPPLEMENT MEDICARE PART A & B [employer] MEDICARE SUPPLEMENT MEDICARE PART A & B [employer] MEDICARE SUPPLEMENT MEDICARE PART A & B [facility] MEDICARE SUPPLEMENT MEDICARE PART A & B [employer] MEDICARE SUPPLEMENT Care Teams Pipe Organ Mechanic Relationship Specialty Start Date End Date Halina South MD PCP - General 07/05/17 Vidhi Lutz MD [address] [place] [address], [facility] [address] [place] [address] [email or web address] Historical LMR Provider 07/07/17 Additional Source Comments The information contained in this document represents components of the legal health record. It is not the complete legal health record.[facility]
--- OUTSIDE RECORDS SUMMARY | 2025-05-12 12:26 | XMS_ITS | Encounter Summary ---
Author Organization [facility] Address [address] [place] [address] Phone Care Team Providers Care Orthodontic Band Maker Name Role Phone Orion Vaca MD Primary Care Provider [phone] Vidhi Lutz MD Unavailable [phone] Reason for Referral * MRI/CAT Scan - Closed Specialty Diagnoses / Procedures Referred By Remigio t Referred To Contact Radiology Diagnoses RLQ abdominal pain Procedures CT Abdomen/Pelvis Orion Vaca MD [address] [place] [address] Phone: tel: fax: Referral ID Status Reason Start Date Expiration Date Visits Re quested Visits Authorized [id number] Closed 07/02/2024 07/02/2025 1 1 Encounter Details Date Type Department Care Team (Latest Contact Info) Description 07/02/2024 Transcribe Orders Virtual Department [address] [place] [address] Orion Vaca MD [address] [place] [address] RLQ abdominal pain (Primary Dx) Social History Tobacco Use Types [...] as of this encounter Results * CT ABDOMEN/PELVIS WITHOUT CONTRAST (07/02/2024 8:36 PM EDT) Anatomical Region Laterality Modality Abdomen, Pelvis Computed Tomogra phy 07/03/2024 8:35 AM EDT Impressions 07/03/2024 8:49 AM EDT Very mild fat stranding along the hepatic flexure, may be of infectious or inflammatory etiology, though no adjacent diverticula are demonstrated. Otherwise, no acute abdominopelvic findings. Narrative 07/03/2024 8:[address] ABDOMEN/PELVIS WITHOUT CONTRAST Referring clinician's provided indication for this examination in Epic: Outside Radiology Order; rlq pain TECHNIQUE: Multidetector-row CT of the abdomen and pelvis was performed without intravenous contrast using tailored dose modulation techniques. Images were reconstructed in the axial, coronal, and sagittal planes. COMPARISON: ABSENCE OF INTRAVENOUS CONTRAST DECREASES SENSITIVITY FOR DETECTION OF FOCAL LESIONS AND VASCULAR PATHOLOGY. FINDINGS: Lower chest: Clear lung bases. No pleural effusions. Liver: No suspicious focal lesions. Biliary: Cholecystectomy. No biliary ductal dilatation. Spleen: No splenomegaly. No focal lesions. Pancreas: No ductal dilatation. Adrenal glands: No nodules. Kidneys/ureters: No hydronephrosis. No stones. Bowel: No obstruction. No bowel wall thickening. Appendectomy. Mild colonic redundancy along the hepatic flexure. Very mild fat stranding along the hepatic flexure (5:29 on exam performed at 2031, 5:23 exam performed 1937). Sigmoid diverticulosis. Peritoneum/retroperitoneum: No masses, free air, or fluid. Lymph nodes: No lymphadenopathy. Pelvic organs/bladder: Hysterectomy. No masses. Vessels: No abdominal aortic aneurysm. Bones/soft tissues: No destructive osseous lesions. Procedure Note Joi Vale MD - 07/03/2024 CT ABDOMEN/PELVIS WITHOUT CONTRAST Referring clinician's provided indication for this examination in Epic:Outside Radiology Order; rlq pain TECHNIQUE: Multidetector-row CT of the abdomen and pelvis was performedwithout intravenous contrast using tailored dose modulation techniques.Images were reconstructed in the axial, coronal, and sagittal planes. COMPARISON: ABSENCE OF INTRAVENOUS CONTRAST DECREASES SENSITIVITY FOR DETECTION OFFOCAL LESIONS AND VASCULAR PATHOLOGY. FINDINGS: Lower chest: Clear lung bases. No pleural effusions. Liver: No suspicious focal lesions. Biliary: Cholecystectomy. No biliary ductal dilatation. Spleen: No splenomegaly. No focal lesions. Pancreas: No ductal dilatation. Adrenal glands: No nodules. Kidneys/ureters: No hydronephrosis. No stones. Bowel: No obstruction. No bowel wall thickening. Appendectomy. Mildcolonic redundancy along the hepatic flexure. Very mild fat strandingalong the hepatic flexure (5:29 on exam performed at 2031, 5:23 examperformed 1937). Sigmoid diverticulosis. Peritoneum/retroperitoneum: No masses, free air, or fluid. Lymph nodes: No lymphadenopathy. Pelvic organs/bladder: Hysterectomy. No masses. Vessels: No abdominal aortic aneurysm. Bones/soft tissues: No destructive osseous lesions. IMPRESSION: Very mild fat stranding along the hepatic flexure, may be of infectious orinflammatory etiology, though no adjacent diverticula are demonstrated.Otherwise, no acute abdominopelvic findings. Orion Vaca MD IMG CT ABD/PELVIS Final R esult documented in this encounter Visit Diagnoses Diagnosis RLQ abdominal pain- Primary Abdominal pain, right lower quadrant RLQ abdominal pain Abdominal pain, right lower quadrant documented in this encounter Care Teams Orthodontic Band Maker Relationship Specialty Start Date End Date Orion Vaca MD PCP - General 07/05/17 Vidhi Lutz MD [address] [place] [address], [address] [place] [address] [email or web address] Historical LMR Provider 07/07/17 documented as of this encounter Additional Source Comments The information contained in this document represents components of the legal health record. It is not the complete legal health record.[facility]
== END 2025-05-12 11:29 | disposition home or self-care (01) ==
LOC: HO.MAMMO 11:28
PROVIDERS: PCP Internal Medicine; Visit Provider Internal Medicine
DX: Z12.31 Encounter for screening mammogram for malignant neoplasm of breast (principal)
CPT/HCPCS: 77063; 77067

== ENCOUNTER → 2025-05-12 11:30 | Outpatient (BNV) | payer MEDICARE, OTHER, SELFPAY | PROVIDERS: PCP Internal Medicine; Visit Provider Radiology Body Imaging | DX: Z12.31 Encounter for screening mammogram for malignant neoplasm of breast (principal) | CPT/HCPCS: 77063; 77067 ==

== ENCOUNTER 2025-05-28 15:08 | Emergency (ER) | payer MEDICARE, OTHER, SELFPAY ==
--- OUTSIDE RECORDS SUMMARY | 2025-03-16 04:30 | XMS_ITS ---
Author Organization [facility] Address [address] [facility] [address] [place] [address] Care Team Providers Care Casket Liner Name Role Phone Orion Vaca Primary Care Provider LULI Roberto Unavailable [phone] Allergies Allergen (clinical drug ingredient) Drug/Non Drug [...] 03/16/2025 Encounters Encounter Location Date Provider Diagnosis [facility] [address] [facility] [address] [place] [address] 03/16/2025 LULI WILLIS Plan Of Treatment No Information Progress Notes * Anat AHUMADAB: 9 (74 yo F)Acc No.[id number]:03/16/2025 Consult note Patient: Rafaela FLYNN Provider: Jefry Willis DPM :1950 A ge:74 Y S ex:Female Date:03/16/2025 Phone: Address:[address] [place] [address] MAR[place] JIMENEZ, [phone] Pcp:Orion Vaca Subjective: * Chief Complaints: * [...] Electronic signature of RONNY WILLIS D.P.M on 05/28/2025 at 07:21 PM EDT Sign off status: Pending * Provider: Jefry Willis DPM Date: 03/16/2025 Generated for Renzo salgado/Catrachito/Stan on: 05/28/2025 07:21 PM EDT
--- NOTE | ~2025-05-28 | CT_ITS ---
CLINICAL HISTORY: R sided abdominal pain hx of diverticulitis CT abdomen and pelvis without contrast Comparison: None provided Findings: The lung bases are clear. The liver, spleen, pancreas, kidneys and adrenal glands are normal in appearance. Gallbladder is surgically absent. No bowel obstruction, pneumoperitoneum, or pneumatosis. No bowel wall thickening. No significant diverticular disease. No evidence of diverticulitis. Pelvic contents unremarkable. Appendix not visualized, may be absent. Urinary bladder is mostly decompressed and slightly thick-walled, which may be due to underdistention. No acute fracture. IMPRESSION: Thick-walled urinary bladder which may be due to underdistention or cystitis. No evidence of diverticulitis. No significant diverticular disease of the colon. This document has been electronically signed by: Evans Barreto MD on 05/28/2025 23:09:08
[2025-05-28 15:13] VITALS: BP 150/78; PULSE 98; RESP 18; TEMP 36.6; O2SAT 99; BMI 21.9
--- NOTE | 2025-05-28 15:16 | ED.GENADULT ---
HPI - General Adult General Chief complaint: Abdominal Pain Stated complaint: abd pain, nausea, weakness (hx diverticulitis) Time Seen by Provider: 05/28/25 20:11 Source: patient and old records reviewed Mode of arrival: ambulatory Limitations: no limitations History of Present Illness ED Provider: DIOGENES RODRIGUEZ narrative: 74 yo female with PMH of HTN, diverticulitis followed at [facility] with last colonoscopy 1 year ago has a tortuous colon, prior abd surgeries including MARIA G, gallbladder, appy, c sections who has had abdominal pain for 10 days and nausea, lost 5lbs, chills and her PCP started her on flagyl while traveling to [place] which did help but now she notes the pain is again back. She has no vomiting or bloody stools. She usually responds to medications. Eating makes her pain worse MD complaint: abdominal pain Onset (ago): day(s) (10) Location: abdomen Radiation: non-radiation Severity: moderate Quality: aching Pain Consistency: intermittent Relieving factors: none Exacerbating factors: eating Associated symptoms: fever/chills, loss of appetite, malaise, nausea/vomiting and weakness Treatments prior to arrival: other Related Data Home Medications ?Medication ?Instructions ?Recorded ?Confirmed albuterol sulfate 90 mcg/actuation 2 puff inhalation Q6H PRN 10/06/21 02/10/25 aerosol inhaler (ProAir HFA) epinephrine 0.3 mg/0.3 mL 0.3 mg IM Q4H PRN 10/06/21 02/10/25 injection, auto-injector fluticasone propionate 50 1 spray intranasal DAILY 10/06/21 02/10/25 mcg/actuation nasal spray,suspension (Flonase Allergy Relief) levocetirizine 5 mg tablet (Xyzal) 5 mg PO DAILY 10/06/21 02/10/25 tretinoin 0.05 % topical cream 1 appl topical BEDTIME 10/06/21 02/10/25 metoprolol succinate 50 mg 50 mg PO DAILY 01/06/22 02/10/25 tablet,extended release 24 hr fluvoxamine 50 mg tablet 50 mg PO DAILY 09/13/22 02/10/25 levothyroxine 112 mcg tablet 88 mcg PO DAILY 09/13/22 02/10/25 (Synthroid) famotidine 40 mg tablet 20 mg PO DAILY 04/11/23 02/10/25 hydralazine 10 mg tablet 10 mg PO DAILY 01/09/24 02/10/25 Previous Rx's ?Medication ?Instructions ?Recorded alprazolam 0.5 mg tablet (Xanax) 0.5 - 1 mg (1 - 2 x 0.5 mg) PO 02/23/25 BEDTIME PRN anxiety 30 days #90 tabs ondansetron 4 mg disintegrating 4 mg PO Q8H PRN nausea and 05/29/25 tablet vomiting #20 tabs Allergies Allergy/AdvReac Type Severity Reaction Status Date / Time Gadolinium-Containing Allergy Intermediate heart Verified 05/28/25 15:16 Contrast Medi racing Latex, Natural Rubber Allergy Mild unknown Verified 05/28/25 15:16 amoxicillin (Amoxicillin) Allergy Unknown ITCH/HIVES Verified 05/28/25 15:16 erythromycin base Allergy Unknown ITCH/HIVES Verified 05/28/25 15:16 (Erythromycin Base) eugenol (Eugenol) Allergy Unknown HEART Verified 05/28/25 15:16 RACING/FAINTING levofloxacin (From Levaquin) Allergy Unknown ITCHING Verified 05/28/25 15:16 penicillin G (Penicillin G) Allergy Unknown ITCH/HIVES Verified 05/28/25 15:16 sulfamethoxazole (From Allergy Unknown ITCH/HIVES Verified 05/28/25 15:16 Bactrim) trimethoprim (From Bactrim) Allergy Unknown ITCH/HIVES Verified 05/28/25 15:16 epinephrine (Epinephrine) AdvReac Unknown TACHYCARDIA, Verified 05/28/25 15:16 FEELING FAINT From Novocain AdvReac Unknown TACHYCARDIA, Uncoded 07/16/24 10:12 FEELING FAINT Review of Systems Review of Systems: Constitutional : No Weight loss, No Fever, pos Chills ENT/Mouth : No sore throat, No Rhinorrhea Eyes: No Swelling, No Redness Cardiovascular : No Chest Pain, No SOB, No edema Respiratory : No Cough, No Sputum, No Wheezing Gastrointestinal : Positive Nausea, no Vomiting, no Diarrhea, positive abdominal Pain, No Hematochezia, No Melena Genitourinary : No Dysuria, No Urinary Frequency, No Hematuria, No Urgency Musculoskeletal : No joint pain, No Myalgias, No Joint Swelling Skin : No Skin Lesions, No rash Neuro : No Weakness, No Numbness, No Dizziness, No Headache All other systems reviewed and are negative. PMFSH Past Medical History Attestation statement: The following information was validated with the patient. Source: old records reviewed Medical History Osteopenia Anemia H/O malignant neoplasm of thyroid Surgical History Hx of cholecystectomy Hx of appendectomy History of knee replacement H/O total hysterectomy Family History Family History Father Myocardial infarction Stroke Mother Cancer Brother Diabetes Brother Diabetes Social History Social History Alcohol intake: current Alcohol intake frequency: 0-2 drinks per day Patient Tobacco Use Status: Never used Tobacco Advance Directives: No Advance Directives Information Provided: Yes Physical Exam ED Vital Signs: Vital Signs - 24 hr 05/28/25 15:13 05/28/25 23:40 Temperature 97.8 F 97.3 F Pulse Rate 98 64 Respiratory Rate 18 Blood Pressure 150/78 H 148/74 H Pulse Oximetry 99 98 Oxygen Delivery Method Room Air Room Air BMI result Body Mass Index 21.9 Appearance: Alert. Oriented X3. No acute distress. Eyes: Pupils equal, round and reactive to light. ENT: Pharynx normal. Neck: Normal inspection. Neck supple. CVS: Normal heart rate and rhythm. Pulses normal. Respiratory: No respiratory distress. Breath sounds normal. Abdomen: Soft and ttp in lower abd but no rebound or guarding Skin: Skin warm and dry. Normal skin color. Normal skin turgor. Extremities: No lower extremity edema. No calf ttp Neuro: Oriented X 3. No motor deficit. No sensory deficit. CN2-12 intact Course Course Course Narrative: This is a Rapid Medical Examination (RME) performed by Caleb Mandel PA-C in triage. Full HPI, ROS, assessment and treatment plan per primary provider in the Main ED. Hx: 74 yo F hx of diverticulitis here for eval of abdominal pain x7-10 days. pain initially began 1 mo ago while in [place] - was prescribed 10d course of flagyl which improved her symptoms. abd pain has now returned and is becoming more diffuse. cannot see her GI doctor until july. Plan: labs, UA - will require imaging. Medical Decision Making Medical Decision Making [facility] Narrative: 74 yo female with PMH of HTN, diverticulitis here with c/o lower abdominal pain, nausea, chills who tried a round of flagyl that has not resolved her symptoms at this time given the outpatient failure and persistent symptoms she will get work up with CT scan - no contrast per her request due to reactions. She could take ceftriaxone and flagyl if we need to pursue IV therapy. Differential Diagnosis Differential Diagnoses: The differential diagnosis associated with the presentation includes diverticular ds, renal colic, colon inflammation, constipation Admission/Observation Consideration of admission/observation: Escalation of care including admission/observation considered labs reassuring, no acute process on CT scan Lab Data [facility] Lab Attestation statement: I reviewed the patient's lab results. 05/28/25 16:13 05/28/25 16:13 Labs: Lab Results 05/28/25 05/28/25 Range/Units 16:13 23:27 WBC 5.5 (4.8-10.8) X10*3/uL RBC 4.30 (4.20-5.50) X10*6/uL Hgb 12.8 (12.0-16.0) g/dl Hct 36.4 L (37.0-47.0) % MCV 84.7 (80.0-98.0) fL MCH 29.8 (27.0-33.0) pg MCHC 35.2 H (31.0-35.0) g/dl RDW 12.4 (11.0-16.0) % Plt Count 167 (160-400) X10*3/uL MPV 9.5 (9.4-12.3) fL Immature Gran % (Auto) 0.2 (0.0-0.4) % Neut % (Auto) 66.1 (45-73) % Lymph % (Auto) 24.7 (20-40) % [place]in[place] % (Auto) 7.6 (2-11) % Eos % (Auto) 0.5 (0-4) % Baso % (Auto) 0.9 (0-2) % Lymph # (Auto) 1.4 (1.2-4.9) X10*3/uL [place] # (Auto) 0.4 (0.1-1.2) X10*3/uL Eos # (Auto) 0.0 (0.0-0.4) X10*3/uL Baso # (Auto) 0.1 (0.0-0.2) X10*3/uL Abs Immat Gran (auto) 0.01 (0.00-0.03) X10*3/uL Absolute Neuts (auto) 3.6 (2.0-8.3) x10*3/uL Absolute Nucleated RBC 0.000 (0.0-0.012) X10*3/uL Nucleated RBC % (auto) 0.0 (0.0-0.2) /100WBC Sodium 138 (135-145) mmol/L Potassium 4.8 (3.3-5.1) mmol/L Chloride 103 (96-108) mmol/L Carbon Dioxide 28 (22-29) mmol/L Anion Gap 12 (12-20) BUN 12 (9-16) mg/dL Creatinine 0.86 (0.5-1.4) mg/dL Estim Creat Clear Calc 54.9 Estimated GFR > 60 Random Glucose 99 (60-115) mg/dL Calcium 8.8 (8.4-10.2) mg/dL Magnesium 1.9 (1.6-2.6) mg/dL Total Bilirubin 0.6 (0.0-1.0) mg/dL AST 29 (5-31) U/L ALT 17 (0-31) U/L Alkaline Phosphatase 44 (39-117) U/L Total Protein 6.9 (6.5-8.0) g/dL Albumin 4.2 (3.5-5.0) g/dL Lipase 18 (8-78) U/L Urine Color Yellow Urine Appearance Clear Urine pH 5.5 (5.0-9.0) Ur Specific Mark Center <= 1.005 (1.005-1.025) Urine Protein Negative (Neg-Trace) mg/dL Urine Glucose (UA) Negative (Negative) mg/dL Urine Ketones 15 (Negative) mg/dL Urine Blood Negative (Negative) Urine Nitrite Negative (Negative) Ur Leukocyte Esterase Negative (Negative) Independent Interpretation I performed an independent interpretation of an: CT Scan Radiology Impression Discussion of test interpretation with radiology: I have reviewed the radiologist's reading. External Record Review External record reviewed: Outpatient record Prescription Management I considered prescription management with: Antibiotic Discharge Plan Discharge Clinical Impression: Abdominal pain Qualifiers: Abdominal location: lower abdomen, unspecified Qualified Code(s): R10.30 - Lower abdominal pain, unspecified Patient Disposition: Home, Self-Care Instructions: Abdominal Pain (ED) Additional Instructions: labs reassuring normal white blood cell count CT scan did not show diverticular disease your urine study was normal so unlikely to be infection return for any worsening symptoms or concerns. follow up with your GI doctor in the next couple of days. Findings: The lung bases are clear. The liver, spleen, pancreas, kidneys and adrenal glands are normal in appearance. Gallbladder is surgically absent. No bowel obstruction, pneumoperitoneum, or pneumatosis. No bowel wall thickening. No significant diverticular disease. No evidence of diverticulitis. Pelvic contents unremarkable. Appendix not visualized, may be absent. Urinary bladder is mostly decompressed and slightly thick-walled, which may be due to underdistention. No acute fracture. IMPRESSION: Thick-walled urinary bladder which may be due to underdistention or cystitis. No evidence of diverticulitis. No significant diverticular disease of the colon. Prescriptions: New ondansetron 4 mg tablet,disintegrating 4 mg PO Q8H PRN (Reason: nausea and vomiting) Qty: 20 0RF No Action alprazolam [Xanax] 0.5 mg tablet 0.5 - 1 mg PO BEDTIME PRN (Reason: anxiety) 30 Days Qty: 90 3RF Rx Instructions: and may take 1 extra tab per day prn anxiety fluticasone propionate [Flonase Allergy Relief] 50 mcg/actuation spray,suspension 1 spray intranasal DAILY Rx Instructions: administer into each nostril levocetirizine [Xyzal] 5 mg tablet 5 mg PO DAILY epinephrine 0.3 mg/0.3 mL auto-injector 0.3 mg IM Q4H PRN tretinoin 0.05 % cream 1 appl topical BEDTIME albuterol sulfate [ProAir HFA] 90 mcg/actuation HFA aerosol inhaler 2 puff inhalation Q6H PRN levothyroxine [Synthroid] 112 mcg tablet 88 mcg PO DAILY famotidine 40 mg tablet 20 mg PO DAILY metoprolol succinate 50 mg tablet extended release 24 hr 50 mg PO DAILY fluvoxamine 50 mg tablet 50 mg PO DAILY Rx Instructions: morning hydralazine 10 mg tablet 10 mg PO DAILY Print Language: Sami
[2025-05-28 16:19] LABS: MANUAL DIFF FLAG NO
[2025-05-28 16:32] LABS: Hematocrit 36.4 % (37.0-47.0); Hemoglobin 12.8 g/dl (12.0-16.0); Imm Gran Abs Auto 0.01 X10*3/uL (0.00-0.03); Imm Gran Pct Auto 0.2 % (0.0-0.4); Lymphocytes Absolute Auto 1.4 X10*3/uL (1.2-4.9); Mean Corpuscular HGB Conc 35.2 g/dl (31.0-35.0); Mean Corpuscular Hemoglobin 29.8 pg (27.0-33.0); Mean Corpuscular Volume 84.7 fL (80.0-98.0); NRBC Abs Auto 0.000 X10*3/uL (0.0-0.012); NRBC Pct Auto 0.0 /100WBC (0.0-0.2); Platelet Count 167 X10*3/uL (160-400); Red Blood Count 4.30 X10*6/uL (4.20-5.50); White Blood Count 5.5 X10*3/uL (4.8-10.8)
[2025-05-28 16:36] LABS: Alanine Aminotransferase 17 U/L (0-31); Albumin Level 4.2 g/dL (3.5-5.0); Alkaline Phosphatase 44 U/L (39-117); Anion Gap 12 (12-20); Aspartate Amino Transferase 29 U/L (5-31); Blood Urea Nitrogen 12 mg/dL (9-16); Calcium 8.8 mg/dL (8.4-10.2); Carbon Dioxide 28 mmol/L (22-29); Chloride 103 mmol/L (96-108); Creatinine Clr Calc Pharmacy 54.9; Estimated Glomerular Filt Rate > 60; Lipase 18 U/L (8-78); Magnesium 1.9 mg/dL (1.6-2.6); Potassium 4.8 mmol/L (3.3-5.1); Sodium 138 mmol/L (135-145); Total Protein 6.9 g/dL (6.5-8.0)
--- OUTSIDE RECORDS SUMMARY | 2025-05-28 19:21 | XMS_ITS | Clinical Summary ---
Author Organization [facility] Address [address] [place], [place] [id number] Care Team Providers Care Business Leader Name Role Phone Orion Vaca MD Primary [...] gram tablet 0 Active Tretinoin, Facial Wrinkles, ([place]) 0.02 % CREA Apply topically. 0 10/27/2011 [...] age to complete this topic Care Teams Business Leader Relationship Specialty Start Date End Date Orion Vaca MD PCP - General Internal Medicine 03/03/21
--- OUTSIDE RECORDS SUMMARY | 2025-05-28 19:21 | XMS_ITS | Encounter Summary ---
Author Organization [employer] [facility] Address [address] [place] [address] Phone Care Team Providers Care Fruit Grader Name Role Phone Orion Vaca MD Primary Care Provider [phone] Vidhi Lutz MD Unavailable [phone] Encounter Details Date Type Department Care Team (Late st Contact Info) Description 07/02/2024 Procedure Pass [facility], Ct Scan - [address] [address] Social History Tobacco Use Types Packs/Day Years [...] on filedocumented in this encounter Care Teams Fruit Grader Relationship Specialty Start Date End Date Orion Vaca MD [address] [place] [address] PCP - General 07/05/17 Vidhi Lutz MD [address] [place] [address] [address] [place] [address] [email or web address] Historical LMR Provider 07/07/17 documented as of this encounter Additional Source Comments The information contained in this document represents components of the legal health record. It is not the complete legal health record.[facility]
--- OUTSIDE RECORDS SUMMARY | 2025-05-28 19:21 | XMS_ITS | Encounter Summary ---
Author Organization [facility] Address [address] [place] [address] Phone Care Team Providers Care Business Operations Analyst Name Role Phone Orion Vaca MD Primary Care Provider [phone] Vidhi Luzt MD Unavailable [phone] Encounter Details Date Type Department Care Team (Late st Contact Info) Description 01/17/2024 Procedure Pass [facility] Endoscopy Admitting Dept Virtual Department [address] [place], [place] [id number] Social History Tobacco Use Types Packs/Day Years [...] on filedocumented in this encounter Care Teams Business Operations Analyst Relationship Specialty Start Date End Date Orion Vaca MD [address] [place] [address] PCP - General 07/05/17 Vidhi Lutz MD [address] [place] [address] [email or web address] Historical LMR Provider 07/07/17 documented as of this encounter Additional Source Comments The information contained in this document represents components of the legal health record. It is not the complete legal health record.[facility]
--- OUTSIDE RECORDS SUMMARY | 2025-05-28 19:21 | XMS_ITS | Encounter Summary ---
Author Organization [facility] Address [address] [place] [address] Phone Care Team Providers Care Plant Utility Person Name Role Phone Orion Vaca MD Primary Care Provider [phone] Vidhi Lutz MD Unavailable [phone] Encounter Details Date Type Department Care Team (Latest Contact Info) Description 12/12/2023 Transcribe Orders Virtual Department 30 [place] [address] Juana Kruse PA [address] [place] [id number] Lower abdominal pain (Primary Dx); Diarrhea, unspecified type Social History Tobacco Use Types Packs/Day Years Used Date Smoking Tobacco: Never Smokeless Tobacco: Never Alcohol Use Standard Drinks/Week Comments Yes 7 (1 standard drink = 0.6 oz pur e alcohol) Education Answer Date Recorded Are you interested in more education? Not on elain e 01/11/2023 Are you concerned about learning? Not on file 01/11/2023 No 01/11/2023 No 01/11/2023 Digital Access Answer Date Recorded No 02/12/2023 No 02/12/2023 Reliable internet access at home? Not on file 02/12/2023 Device with a working camera? Not on file 05 / Comments No Sex and Gender Information Value [...] type documented in this encounter Care Teams Plant Utility Person Relationship Specialty Start Date End Date Orion Vaca MD [address] [place] [address] PCP - General 07/05/17 Vidhi Lutz MD [address] [place] [address] [address] [place] [address] [email or web address] Historical LMR Provider 07/07/17 documented as of this encounter Additional Source Comments The information contained in this document represents components of the legal health record. It is not the complete legal health record.[facility]
--- OUTSIDE RECORDS SUMMARY | 2025-05-28 19:21 | XMS_ITS | Encounter Summary ---
Author Organization [facility] Address [address] [place] [address] Phone Care Team Providers Care Solar Design Engineer Name Role Phone Orion Vaca MD Primary Care Provider [phone] Vidhi Lutz MD Unavailable [phone] Orion Vaca MD Unavailable [phone] Encounter Details Date Type Department Care Team (Late st Contact Info) Description 10/06/2017 Procedure Pass [facility], Ct Scan - [address] [address] Social History Tobacco Use Types Packs/Day Years [...] on filedocumented in this encounter Care Teams Solar Design Engineer Relationship Specialty Start Date End Date Orion Vaca MD [address] [place] [address] PCP - General 07/05/17 Vidhi Lutz MD 22 [facility] [address] [place] [address] [email or web address] Historical LMR Provider 07/07/17 Orion Vaca MD [address] [place] [address] Historical LMR Provider 07/07/17 2 documented as of this encounter Additional Source Comments The information contained in this document represents components of the legal health record. It is not the complete legal health record.[facility]
--- OUTSIDE RECORDS SUMMARY | 2025-05-28 19:21 | XMS_ITS | Encounter Summary ---
Author Organization [facility] Address [address] [place] [address] Phone Care Team Providers Care Canvas Goods Supervisor Name Role Phone Orion Vaca MD Primary Care Provider [phone] Vidhi Lutz MD Unavailable [phone] Orion Vaca MD Unavailable [phone] Encounter Details Date Type Department Care Team (Latest Contact Info) Description 12/10/2018 Transcribe Orders [facility] [address] [address] Juana Kruse PA [address] [place] [address] GERD with esophagitis (Primary Dx); Iron deficiency [...] EDT) FERRITIN 189(H) 13 - 150 ug/L [facility] Blood 12/10/2018 11:1 2 AM EDT 12/10/2018 11:27 AM EDT us Juana ASHER LAB BLOOD ORDERABLES Final Result Performing Organization Address City/[facility]/ZIP Co de Phone Number [address] [address] * TSH (12/10/2018 11:12 AM EDT) TSH 1.93 0.27 - 4.20 uIU/mL [facility] Blood 12/10/2018 11:1 2 AM EDT 12/10/2018 11:27 AM EDT us Juana ASHER LAB BLOOD ORDERABLES Final Result Performing Organization Address [facility] Co de Phone Number [address] [address] * Iron and iron binding capacity (12/10/2018 11:12 AM EDT) Pathologist [facility] IRON 100 30 - 160 ug/dL [facility] IRON BINDING CAPACITY 272 228 - 428 ug/dL [facility] TRANSFERRIN SATURAT. 37 15 - 50 % [facility] Blood 12/10/2018 11:1 2 AM EDT 12/10/2018 11:27 AM EDT Juana ASHER LAB BLOOD ORDERABLES Final Result Performing Organization Address [facility] Co de Phone Number [address] [address] * (ABNORMAL) CBC (12/10/2018 11:12 AM EDT) WBC 5.93 3.40 - 11.20 K/uL [facility] RBC 4.82(H) 3.80 - 4.80 M/uL [facility] HGB 14.3 12.0 - 15.0 g/dL [facility] HCT 42.7 36.0 - 46.0 % [facility] PLT 221 130 - 400 K/uL [facility] MCV 88.6 79.0 - 98.0 [facility] MCH 29.7 27.0 - 34.8 pg [facility] MCHC 33.5 31.5 - 36.0 g/dL [facility] RDW 12.7 10.8 - 14.6 % [facility] MPV 10.4 9.4 - 12.4 [facility] NRBC 0.00 0.00 /100 WBCs [facility] ABSOLUTE NRBC 0.00 0.00 K/uL [facility] Blood 12/10/2018 11:1 2 AM EDT 12/10/2018 11:27 AM EDT us Juana ASHER LAB BLOOD ORDERABLES Final Result Performing Organization Address City/State/[facility] Co de Phone Number [facility] [address] [place] [address] documented in this encounter Visit Diagnoses Diagnosis GERD with esophagitis- Primary Iron deficiency anemia, unspecified iron deficiency anemia type documented in this encounter Care Teams Canvas Goods Supervisor Relationship Specialty Start Date End Date Orion Vaca MD [address] [address] PCP - General 07/05/17 Vidhi Lutz MD [address] [place] [address], [address] [place] [address] [email or web address] Historical LMR Provider 07/07/17 Orion Vaca MD [address] [address] Historical LMR Provider 07/07/17 2 documented as of this encounter Additional Source Comments The information contained in this document represents components of the legal health record. It is not the complete legal health record.[facility]
--- OUTSIDE RECORDS SUMMARY | 2025-05-28 19:21 | XMS_ITS | Patient Health Record ---
Author Organization [facility] Address [address] [facility] [address] [place] [address] Care Team Providers Care Highway Construction Inspector Name Role Phone Orion Vaca Primary Care Provider LULI Roberto Unavailable [phone] Allergies Allergen (clinical drug ingredient) Drug/Non Drug Allergy documented on EMR Reaction Allergy Type Onset Date Status novacaine (uncoded) Unknown Allergy Active azithromycin Z pradeep (uncoded) elevated BP Allergy Active sulfamethoxazole / trimethoprim Bactrim Unknown Drug Allergy Active Levaquin Unknown Drug Allergy Active cortisone Cortisone severe gastritis Drug Allergy Active epinephrine Epinephrine Unknown Drug Allergy Act yoseph Iodinated contrast media (substance) Iodinated Diagnostic Agents Unknown Drug Allergy Active Mold Unknown Allergy Active Shellfish (FN) Shellfish-derived Products Unknown Drug Allergy Active erythromycin Erythromycin Unknown Drug Allergy A ctive Penicillin Unknown Drug Allergy Active Reason For Referral Reason Patient requests [facility]- bilateral tarsal tunnel and peripheral neuropathy, needs help with balance and weakness. Please evaluate and treat. Diagnosis 1 Peripheral polyneuro jen (G62.9) Diagnosis 2 Tarsal tunnel syndro me, bilateral (G57.53) Referral Organization [facility] Referring Provider First Name LULI Referring Provider Last Name ELGIN Referring Provider Speciality Podiatry Referred Provider Specialty Physical The rapist General Notes Radha Guzman 11:11:17 AM > Faxed referral, and progress note 05/13/2025 to [facility] Physical Therapy [address] [place] [address] and phone number [phone]. Confirmation received fax scanned into chart. They will contact patient to schedule. Clinical Notes Radha Guzman 08:22:03 AM > Called [facility] to verify if patient has an appointment scheduled per concierge receptionist referral has been received but patient is not scheduled yet., Radha Guzman 05/19/2025 08:17:00 AM > Called [facility] to verify if patient has an appointment scheduled per Maggy not yet., Radha Guzman 05/21/2025 08:42:19 AM > Called [facility] to verify if patient has an appointment scheduled per Maggy she contacted the patient to schedule and the patient stated she would call her at a later time because she has so many appointments going on right now. Referral Priority Routine Medications Medication SIG (Take, Route, Frequency, Duration) Notes Start Date End Date Status Famotidine 40 MG 1 tablet Orally Once a day Active Albuterol Sulfate 108 (90 Base) MCG/ACT 1 puff as needed Inhalation every 4 hrs Active LORazepam 0.5 MG 1 tablet at bedtime as needed Orally Once a day Active fluvoxaMINE Maleate 50 MG 1 tablet at be dtime Orally Once a day 75MG Active hydrALAZINE HCl 10 MG 1 tablet with food Orally Four times a day Active Metoprolol Succinate ER 50 MG 1 tablet Orally Once a day Active Synthroid 88 MCG 1 tablet in the morn ing on an empty stomach Orally Once a day Active Azelastine HCl 137 MCG/SPRAY 2 puffs (1 spray in each nostril) Nasally Twice a day Active Problems Problem Type SNOMED Code ICD Code Onset Dates Problem Status W/U Status Risk Notes Problem Tarsal tunnel syndrome (39959067) Tarsal tunnel syndrome, bilateral (G57.53) Active confirmed 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) Peripheral polyneuropathy (G62.9) Active confirmed Vital Signs Heart Rate 73 /min 05/13/2025 Temperature 97.0 degrees Fahrenheit 05/13/2025 Respiratory Rate 16 /min 05/13/2025 Height 5ft 5in in 05/13/2025 Weight 135.1 lbs 05/13/2025 BMI 22.48 kg/m2 05/13/2025 Encounters Encounter Location Date Provider Diagnosis [facility] [address] [facility] [address] [place] [address] 05/13/2025 LULI EISENBERG Peripheral polyneuropathy G62.9 ; Tarsal tunnel syndrome, bilateral G57.53 ; Pain in right foot M79.671 ; Pain in left foot M79.672 and Dorsiflexed first ray, unspecified laterality M21.279 [facility] [address] 02/11/2025 LULI EISENBERG [facility] [address] [address] 03/11/2025 [facility] [address] [address] 03/11/2025 [facility] Assessments Encounter Date Diagnosis (ICD Code) Assessment Notes Treatment Notes Treatment Clinical Notes Section Notes 05/13/2025 Tarsal tunnel syndrome, bilateral (ICD-10 - G57.53) 05/13/2025 Peripheral polyneuropathy (ICD-10 - G62.9) This is an outpatient visit for evaluation and management of a new patient, which required appropriate review of pertinent medical history, review of any previous testing, review of all previous records, and examination and decision-making. Time was 60 minutes spent in review of all these facets including face to face discussion with the patient regarding my findings and in discussion of a current and future treatment plan. I had a long discussion with the patient that I believe more of her symptoms are caused by the peripheral neuropathy and not the tarsal tunnel syndrome. She has no pain on compression or palpation of the tarsal tunnel on examination. Her nerve symptoms do not change or increase on compression of the tarsal tunnel bilaterally. She is more symptomatic in her left leg, we discussed her back issues could be contributing to this finding. I stressed the importance of realizing there is no cure for peripheral neuropathy, only symptom management. She could not tolerate the oral medications used to treat neuropathy due to the side effects. We discussed this leaves mainly topical treatment options. I explained the burning pain in her feet is a classic neuropathy symptom. We discussed that an orthotic may be beneficial for the hallux issue and to help stabilize her ankles for the tarsal tunnel. RX given for custom orthotics with a list of DME suppliers. We discussed using this in her sneakers. We discussed her weakness and balance issues. I believe she would benefit from a formal course of physical therapy for that part of her concern. I will place a referral to [facility] PT per the patient's request. I would like her to keep her upcoming appointments with her spinal surgeon and try these options in the meantime. She can follow up after physical therapy and the orthotics. She is in agreement with this plan. 05/13/2025 Pain in right foot (ICD-10 - M79.671) 05/13/2025 Pain in left foot (ICD-10 - M79.672) 05/13/2025 Dorsiflexed first ray, unspecified laterality (ICD-10 - M21.279) Plan Of Treatment No Information Insurance Providers Payer Name Payer Address Payer Phone Subscriber Number Group Number Insured Name Patient Relationship to Insured Coverage Start Date Coverage End Date Medicare of [place] [address] [place] [address] [id number] AltheaBrian diehla Self - patient is the insured FOR LIFE [address] [place] [address] [id number] AltheaRafaela diehl Self - patient is the insured Medical (General) History Medical History History ICD Code Raynaud's Syndrome Osteoarthritis hands Sicca syndrome Carpal tunnel syndrome Hypothyroidism Hashimotos Anxiety IBS Non ulcerative dyspepsia Stomach bezoar Visceral hypersensitivity Allergies Thyroid cancer Genital herpes Scarlet fever Cardiac murmur BMD with Dr Ruffin + COVID 2021 COVID vaccinated X 6 ([employer]) Surgical History Surgery Date(Month/Year) appendectomy tonsillectomy x3 cholecystectomy thyroidectomy hysterectomy [facility] right knee meniscal injury Hospitalization History Reason Date(Month/Year) hysterectomy [facility] thyroidectomy cholecystectomy tonsillectomy appendectomy (girl) 1982 (girl) 1972 (boy) 1970
--- OUTSIDE RECORDS SUMMARY | 2025-05-28 19:21 | XMS_ITS | Encounter Summary ---
Author Organization [facility] Address [address] [place] [address] Phone Care Team Providers Care Spray Booth Operator Name Role Phone Orion Vaca MD Primary Care Provider [phone] Vidhi Lutz MD Unavailable [phone] Orion Vaca MD Unavailable [phone] Encounter Details Date Type Department Care Team (Latest Contact Info) Description 07/13/2020 Transcribe Orders Virtual Department [address] [place] [address] Catarino Figueroa MD [address] [place] [address] [phone] [email or web address] Encounter for laboratory testing for COVID-19 virus [...] 2:40 PM EDT) Specimen Source 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 NO [facility] Other 07/16/2020 2:40 PM EDT 07/16/2020 2:42 PM EDT Catarino Figueroa MD BODY FLUIDS AND STOOLS ORD ERABLES Final Result [facility] [address] [place] [address] documented in this encounter Visit Diagnoses Diagnosis Encounter for laboratory testing for COVID-19 virus- Primary documented in this encounter Care Teams Spray Booth Operator Relationship Specialty Start Date End Date Orion Vaca MD [address] [address] PCP - General 07/05/17 Vidhi Lutz MD 22 [facility], [facility] [address] [place] [address] [email or web address] Historical LMR Provider 07/07/17 Orion Vaca MD [address] [address] Historical LMR Provider 07/07/17 2 documented as of this encounter Additional Source Comments The information contained in this document represents components of the legal health record. It is not the complete legal health record.[facility]
--- OUTSIDE RECORDS SUMMARY | 2025-05-28 19:21 | XMS_ITS | Encounter Summary ---
Author Organization [facility] Address [address] [place] [address] Phone Care Team Providers Care Scallop Dredger Name Role Phone Orion Vaca MD Primary Care Provider [phone] Vidhi Lutz MD Unavailable [phone] Encounter Details Date Type Department Care Team (Latest Contact Info) Description 12/12/2023 Transcribe Orders [facility] [address] [phone] Juana Kruse PA [address] [place] [address] Diarrhea, unspecified type (Primary Dx) Social History [...] EDT) LIPASE 26 16 - 63 U/L [facility] Blood 12/12/2023 9:13 AM EDT 12/12/2023 9:16 AM EDT us [facility] BLOOD ORDERABLES Final Result Performing Organization Address City/State/[facility] Co de Phone Number [address] [address] * (ABNORMAL) Comprehensive metabolic panel (12/12/2023 9:13 AM EDT) SODIUM 138 133 - 146 mmol/L [facility] POTASSIUM 4.1 3.3 - 5.1 mmol/L [facility] CHLORIDE 100 96 - 108 mmol/L [facility] CO2 29 21 - 35 mmol/L [facility] BUN 10 6 - 19 mg/dL [facility] CREATININE 0.80 0.5 - 1.5 mg/dL [facility] GLUCOSE 103(H) 70 - 99 mg/dL [facility] ALBUMIN 4.2 3.9 - 4.8 g/dL [facility] TOTAL PROTEIN 7.6 6.5 - 8.0 g/dL [facility] CALCIUM 9.2 8.4 - 10.3 mg/dL [facility] ALKALINE PHOSPHATASE 88 39 - 117 U/L [facility] TOTAL BILIRUBIN 0.5 0.0 - 1.2 mg/dL [facility] AST 27 0 - 37 U/L [facility] ALT 17 0 - 40 U/L [facility] GLOBULIN 3.4 1 - 4.8 g/dL [facility] EGFR 77 >59 mL/min/1.7 3m2 [facility] Comment:Estimated glomerular filtration rate calculated using the CKD-EPI refit equation. ANION GAP 13 10 - 20 mmol/L [facility] Blood 12/12/2023 9:13 AM EDT 12/12/2023 9:16 AM EDT us [facility] BLOOD ORDERABLES Final Result [facility] [address] [place] [address] * CBC and differential (12/12/2023 9:13 AM EDT) WBC 4.65 4.00 - 11.00 K/uL [facility] RBC 4.84 3.72 - 5.30 M/uL [facility] HGB 13.7 11.4 - 15.9 g/dL [facility] HCT 42.0 34.2 - 46.8 % [facility] PLT 254 140 - 430 K/uL [facility] MCV 86.8 78.0 - 97.0 fL [facility] MCH 28.3 25.0 - 33.0 pg [facility] MCHC 32.6 32.0 - 36.0 g/dL [facility] RDW 12.4 11.0 - 16.0 % [facility] MPV 9.7 8.4 - 12.8 fl [facility] DIFF METHOD Auto [facility] NEUTS 48.3 43.0 - 75.0 % [facility] LYMPHS 35.9 18.2 - 47.4 % [facility] MONOS 10.8 4.00 - 11.00 % [facility] EOS 3.9 0.0 - 8.0 % [facility] BASOS 0.9 0.0 - 2.0 % [facility] Granulocytes, immature (%) 0.2 0.0 - 0.9 % [facility] ABSOLUTE NEUTS 2.25 1.80 - 7.70 K/uL [facility] ABSOLUTE LYMPHS 1.67 1.00 - 3.10 K/uL [facility] ABSOLUTE MONOS 0.50 0.20 - 0.80 K/uL [facility] ABSOLUTE EOS 0.18 0.00 - 0.80 K/uL [facility] ABSOLUTE BASOS 0.04 0.00 - 0.09 K/uL [facility] Granulocytes, immature 0.01 0.00 - 0.05 K/uL [facility] Blood 12/12/2023 9:13 AM EDT 12/12/2023 9:16 AM EDT us [facility] BLOOD ORDERABLES Final Result [facility] [address] [place] [address] documented in this encounter Visit Diagnoses Diagnosis Diarrhea, unspecified type- Primary documented in this encounter Care Teams Scallop Dredger Relationship Specialty Start Date End Date Orion Vaca MD [address] [address] PCP - General 07/05/17 Vidhi Lutz MD [address] [facility] [place] [address] [email or web address] Historical LMR Provider 07/07/17 documented as of this encounter Additional Source Comments The information contained in this document represents components of the legal health record. It is not the complete legal health record.[facility]
--- OUTSIDE RECORDS SUMMARY | 2025-05-28 19:21 | XMS_ITS | Encounter Summary ---
Author Organization [facility] Address [address] [place] [address] Phone Care Team Providers Care Regional Ehs Manager Name Role Phone Orion Vaca MD Primary Care Provider [phone] Vidhi Lutz MD Unavailable [phone] Orion Vaca MD Unavailable [phone] Encounter Details Date Type Department Care Team (Latest Contact Info) Description 08/22/2019 Transcribe Orders Virtual Department [address] [place] [address] Catarino Figueroa MD [address] [place] [address] [phone] [email or web address] [...] POS - [facility] Catarino Figueroa MD [facility] PELVIS Final Resu lt documented in this encounter Visit Diagnoses Diagnosis Right sided abdominal pain- Primary Abdominal pain, unspecified site Gas pain Flatulence, eructation, and gas pain Right sided abdominal pain Abdominal pain, unspecified site Gas pain Flatulence, eructation, and gas pain documented in this encounter Care Teams Regional Ehs Manager Relationship Specialty Start Date End Date Orion Vaca MD [address] [place] [address] PCP - General 07/05/17 Vidhi Lutz MD 22 [facility], [address] [place] [address] [email or web address] Historical LMR Provider 07/07/17 Orion Vaca MD [address] [place] [address] Historical LMR Provider 07/07/17 2 documented as of this encounter Additional Source Comments The information contained in this document represents components of the legal health record. It is not the complete legal health record.[facility]
--- OUTSIDE RECORDS SUMMARY | 2025-05-28 19:21 | XMS_ITS | Encounter Summary ---
Author Organization [facility] Address [address] [place] [address] Phone Care Team Providers Care Adaptive Physical Education Teacher Name Role Phone Orion Vaca MD Primary Care Provider [phone] Vidhi Lutz MD Unavailable [phone] Reason for Referral * MRI/CAT Scan - Closed Specialty Diagnoses / Procedures Referred By Remigio t Referred To Contact Radiology Diagnoses RLQ abdominal pain Procedures CT Abdomen/Pelvis Orion Vaca MD [address] [place] [address] Phone: tel: fax: Referral ID Status Reason Start Date Expiration Date Visits Re quested Visits Authorized [id number] Closed 07/02/2024 07/02/2025 1 1 Encounter Details Date Type Department Care Team (Latest Contact Info) Description 07/02/2024 Transcribe Orders Virtual Department [address] [place] [address] Orion Vaca MD [address] [address] RLQ abdominal pain (Primary Dx) Social History [...] quadrant documented in this encounter Care Teams Adaptive Physical Education Teacher Relationship Specialty Start Date End Date Orion Vaca MD [address] [place] [address] PCP - General 07/05/17 Vidhi Lutz MD 22 [facility], [facility] [address] [place] [address] [email or web address] Historical LMR Provider 07/07/17 documented as of this encounter Additional Source Comments The information contained in this document represents components of the legal health record. It is not the complete legal health record.[facility]
--- OUTSIDE RECORDS SUMMARY | 2025-05-28 19:21 | XMS_ITS | Encounter Summary ---
Author Organization [facility] Address [address] [place] [address] Phone Care Team Providers Care Typewriter Aligner Name Role Phone Orion Vaca MD Primary Care Provider [phone] Vidhi Lutz MD Unavailable [phone] Orion Vaca MD Unavailable [phone] Encounter Details Date Type Department Care Team (Latest Contact Info) Description 09/25/2017 Transcribe Orders [facility] Laboratory [address] [address] Juana Kruse PA 10 [place] [address] Blood loss anemia (Primary Dx); Reflux esophagitis [...] VITAMIN A 56.5 32.5 - 78.0 mcg/dL [facility] LAB MED/PATH SUPERIOR Comment: (NOTE) ADDITIONAL INFORMATION This test was developed and its performance characteristics determined by [facility] in a manner consistent with CLIA requirements. This test has not been cleared or approved by the U.S. Food and Drug Administration. Blood 09/25/2017 2:16 PM EST 09/25/2017 2:28 PM EST Juana ASHER LAB BLOOD ORDERABLES Final Result Performing Organization Address [facility] de Phone Number [facility] MED/PATH [place] [address] * Vitamin K (09/25/2017 2:16 PM EST) [facility] VITAMIN K1 0.59 0.10 - 2.20 ng/mL [facility] LAB MED/PATH SUPERIOR Comment: (NOTE) ADDITIONAL INFORMATION This test was developed and its performance characteristics determined by [facility] in a manner consistent with CLIA requirements. This test has not been cleared or approved by the U.S. Food and Drug Administration. Blood 09/25/2017 2:16 PM EST 09/25/2017 2:28 PM EST Juana ASHER LAB BLOOD ORDERABLES Final Result Performing Organization Address [facility] de Phone Number [facility] LAB MED/PATH [address] [address] * Vitamin E (09/25/2017 2:16 PM EST) [facility] VIT E, A-TOCOPHEROL 16.1 5.5 - 17.0 mg/L [facility] LAB MED/PATH SUPERIOR Comment: (NOTE) ADDITIONAL INFORMATION This test was developed and its performance characteristics determined by [facility] in a manner consistent with CLIA requirements. This test has not been cleared or approved by the U.S. Food and Drug Administration. Blood 09/25/2017 2:16 PM EST 09/25/2017 2:28 PM EST Juana ASHER LAB BLOOD ORDERABLES Final Result [facility]/PATH [address] [place] [address] * Tissue transglutaminase IgA (09/25/2017 2:16 PM EST) TTG IGA ANTIBODY <1.2 <4.0 (Negative) U/mL [facility] DPT OF LAB MED AND PAT+ Blood 09/25/2017 2:16 PM EST 09/25/2017 2:28 PM EST Juana ASHER LAB BLOOD ORDERABLES Final Result Performing Organization Address [facility] de Phone Number [facility] DPT OF LAB MED AND PAT+ [address] [place] [address] * Immunoglobulin A (09/25/2017 2:16 PM EST) IgA 371 70 - 400 mg/dL [facility] Blood 09/25/2017 2:16 PM EST 09/25/2017 2:28 PM EST Juana ASHER LAB BLOOD ORDERABLES Final Result Performing Organization Address City/[facility] Co de Phone Number [facility] [address] [place] [address] * Magnesium (09/25/2017 2:16 PM EST) MAGNESIUM 2.3 1.6 - 2.6 mg/dL [facility] Blood 09/25/2017 2:16 PM EST 09/25/2017 2:28 PM EST us Juana ASHER LAB BLOOD ORDERABLES Final Result Performing Organization Address [facility] Co de Phone Number [address] [address] * Zinc (09/25/2017 2:16 PM EST) ZINC 0.78 0.66 - 1.10 mcg/mL [facility] LAB MED/PATH SUPERIOR Comment: (NOTE) ADDITIONAL INFORMATION This test was developed and its performance characteristics determined by [facility] in a manner consistent with CLIA requirements. This test has not been cleared or approved by the U.S. Food and Drug Administration. Blood 09/25/2017 2:16 PM EST 09/25/2017 2:28 PM EST us Juana ASHER LAB BLOOD ORDERABLES Final Result Performing Organization Address [facility] Co de Phone Number [facility] LAB MED/PATH SUPERIOR [address] [place] [address] * 25-OH vitamin D (09/25/2017 2:16 PM EST) 25 [place] VIT D (TOTAL) 41 30 - 1,000 ng/mL [facility] Blood 09/25/2017 2:16 PM EST 09/25/2017 2:28 PM EST Juana ASHER LAB BLOOD ORDERABLES Final Result Performing Organization Address [facility] Co de Phone Number [address] [address] * (ABNORMAL) Vitamin B12 (09/25/2017 2:16 PM EST) VITAMIN B12 1,611(H) 243 - 894 pg/mL [facility] Blood 09/25/2017 2:16 PM EST 09/25/2017 2:28 PM EST us Juana ASHER LAB BLOOD ORDERABLES Final Result Performing Organization Address [facility]/ZIP Co de Phone Number [address] [address] * (ABNORMAL) Folate (09/25/2017 2:16 PM EST) FOLIC ACID >20.0(H) 4.2 - 19.9 ng/mL [facility] Blood 09/25/2017 2:16 PM EST 09/25/2017 2:28 PM EST Juana SAHER LAB BLOOD ORDERABLES Final Result Performing Organization Address [facility] Co ga Phone Number [address] [address] * Ferritin (09/25/2017 2:16 PM EST) FERRITIN 94 13 - 150 ug/L [facility] Blood 09/25/2017 2:16 PM EST 09/25/2017 2:28 PM EST us Juana ASHER LAB BLOOD ORDERABLES Final Result Performing Organization Address [facility] Co ga Phone Number [address] [address] * (ABNORMAL) Comprehensive metabolic panel (09/25/2017 2:16 PM EST) SODIUM 141 133 - 146 mmol/L [facility] POTASSIUM 4.4 3.3 - 5.1 mmol/L [facility] CHLORIDE 104 96 - 108 mmol/L [facility] CO2 27 21 - 35 mmol/L [facility] BUN 21(H) 6 - 19 mg/dL [facility] CREATININE 0.70 0.5 - 1.5 mg/dL [facility] GLUCOSE 90 70 - 99 mg/dL [facility] ALBUMIN 4.1 3.9 - 4.8 g/dL [facility] TOTAL PROTEIN 7.3 6.5 - 8.0 g/dL [facility] CALCIUM 8.8 8.4 - 10.3 mg/dL [facility] ALKALINE PHOSPHATASE 59 39 - 117 U/L [facility] TOTAL BILIRUBIN 0.3 0 - 1.2 mg/dL [facility] AST 22 0 - 37 U/L [facility] ALT 21 0 - 40 U/L [facility] GLOBULIN 3.2 1 - 4.8 g/dL [facility] EGFR >60 >60 mL/min/1.7 3m2 [facility] Comment:Abnormal if <60. If patient is -Emirati, multiply the result by 1.21. ANION GAP 14 10 - 20 mmol/L [facility] Blood 09/25/2017 2:16 PM EST 09/25/2017 2:28 PM EST us Juana ASHER LAB BLOOD ORDERABLES Final Result Performing Organization Address City/State/[facility] Co de Phone Number [facility] [address] [place] [address] * CBC and differential (09/25/2017 2:16 PM EST) WBC 5.98 3.40 - 11.20 K/uL [facility] RBC 4.51 3.80 - 4.80 M/uL [facility] HGB 13.2 12.0 - 15.0 g/dL [facility] HCT 39.3 36.0 - 46.0 % [facility] PLT 203 130 - 400 K/uL [facility] MCV 87.1 79.0 - 98.0 fL [facility] MCH 29.3 27.0 - 34.8 pg [facility] MCHC 33.6 31.5 - 36.0 g/dL [facility] RDW 12.9 10.8 - 14.6 % [facility] MPV 9.9 9.4 - 12.4 fl [facility] NRBC 0.00 /100 WBCs [facility] ABSOLUTE NRBC 0.00 K/uL [facility] DIFF METHOD Auto [facility] NEUTS 60.2 45.30 - 77.70 % [facility] LYMPHS 29.8 12.30 - 39.70 % [facility] MONOS 7.2 4.10 - 12.80 % [facility] EOS 1.8 0 - 7.2 % [facility] BASOS 0.7 0 - 2.80 % [facility] Granulocytes, immature (%) 0.3 0.0 - 0.9 % [facility] ABSOLUTE NEUTS 3.60 1.40 - 7.70 K/uL [facility] ABSOLUTE LYMPHS 1.78 0.60 - 3.20 K/uL [facility] ABSOLUTE MONOS 0.43 0.11 - 0.59 K/uL [facility] ABSOLUTE EOS 0.11 0.01 - 0.50 K/uL [facility] ABSOLUTE BASOS 0.04 0.00 - 0.08 K/uL [facility] Granulocytes, immature 0.02 0.00 - 0.05 K/uL [facility] Blood 09/25/2017 2:16 PM EST 09/25/2017 2:28 PM EST us Juana ASHER LAB BLOOD ORDERABLES Final Result Performing Organization Address City/State/[facility] Co de Phone Number [address] [address] documented in this encounter Visit Diagnoses Diagnosis Blood loss anemia- Primary Acute posthemorrhagic anemia Reflux esophagitis documented in this encounter Care Teams Typewriter Aligner Relationship Specialty Start Date End Date Orion Vaca MD [address] [address] PCP - General 07/05/17 Vidhi Lutz MD [address] [place] [address], [facility] [address] [place] [address] [email or web address] Historical LMR Provider 07/07/17 Orion Vaca MD [address] [address] Historical LMR Provider 07/07/17 2 documented as of this encounter Additional Source Comments The information contained in this document represents components of the legal health record. It is not the complete legal health record.[facility]
--- OUTSIDE RECORDS SUMMARY | 2025-05-28 19:21 | XMS_ITS | Encounter Summary ---
Author Organization [facility] Address [email or web address] [place] [address] Phone Care Team Providers Care Health Care Analyst Name Role Phone Orion Vaca MD Primary Care Provider [phone] Vidhi Lutz MD Unavailable [phone] Orion Vaca MD Unavailable [phone] Encounter Details Date Type Department Care Team (Late st Contact Info) Description 08/07/2017 Procedure Pass [facility], Ct Scan - [address] [address] Social History Tobacco Use Types Packs/Day Years [...] on filedocumented in this encounter Care Teams Health Care Analyst Relationship Specialty Start Date End Date Orion Vaca MD [address] [place] [address] PCP - General 07/05/17 Vidhi Lutz MD 22 [facility], [facility] [address] [place] [address] [email or web address] Historical LMR Provider 07/07/17 Orion Vaca MD [address] [place] [address] Historical LMR Provider 07/07/17 2 documented as of this encounter Additional Source Comments The information contained in this document represents components of the legal health record. It is not the complete legal health record.[facility]
--- OUTSIDE RECORDS SUMMARY | 2025-05-28 19:21 | XMS_ITS | Encounter Summary ---
Author Organization [facility] Address [address] [place] [address] Phone Care Team Providers Care Ammonia Operator Name Role Phone Orion Vaca MD Primary Care Provider [phone] Vidhi Lutz MD Unavailable [phone] Orion Vaca MD Unavailable [phone] Encounter Details Date Type Department Care Team (Latest Contact Info) Description 06/11/2018 Transcribe Orders [facility] Laboratory [address] [address] Juana Kruse PA 10 [place] [address] Intestinal malabsorption, unspecified type (Primary Dx); Iron [...] EDT) MAGNESIUM 2.3 1.6 - 2.6 mg/dL [facility] Blood 06/11/2018 10:4 5 AM EDT 06/11/2018 10:51 AM EDT Juana ASHER LAB BLOOD ORDERABLES Final Result Performing Organization Address [facility] de Phone Number [address] [address] * Zinc (06/11/2018 10:45 AM EDT) ZINC 0.74 0.66 - 1.10 mcg/mL [facility] LAB MED/PATH SUPERIOR Comment: (NOTE) ADDITIONAL INFORMATION This test was developed and its performance characteristics determined by [facility] in a manner consistent with CLIA requirements. This test has not been cleared or approved by the U.S. Food and Drug Administration. Blood 06/11/2018 10:4 5 AM EDT 06/11/2018 10:50 AM EDT Juana ASHER LAB BLOOD ORDERABLES Final Result Performing Organization Address [facility] de Phone Number [facility] LAB MED/PATH SUPERIOR [address] [place] [address] * 25-OH vitamin D (06/11/2018 10:45 AM EDT) 25 [place] VIT D (TOTAL) 39 30 - 60 ng/mL [facility] Blood 06/11/2018 10:4 5 AM EDT 06/11/2018 10:51 AM EDT Juana ASHER LAB BLOOD ORDERABLES Final Result Performing Organization Address [facility] de Phone Number [address] [address] * (ABNORMAL) Vitamin B12 (06/11/2018 10:45 AM EDT) VITAMIN B12 1,602(H) 232 - 1,245 pg/mL [facility] Blood 06/11/2018 10:4 5 AM EDT 06/11/2018 10:51 AM EDT Juana ASHER LAB BLOOD ORDERABLES Final Result [address] [address] * Ferritin (06/11/2018 10:45 AM EDT) FERRITIN 144 13 - 150 ug/L [facility] Blood 06/11/2018 10:4 5 AM EDT 06/11/2018 10:51 AM EDT Juana ASHER LAB BLOOD ORDERABLES Final Result Performing Organization Address [facility] Co de Phone Number [address] [address] * Iron and iron binding capacity (06/11/2018 10:45 AM EDT) IRON 92 30 - 160 ug/dL [facility] IRON BINDING CAPACITY 260 228 - 428 ug/dL [facility] TRANSFERRIN SATURAT. 35 15 - 50 % [facility] Blood 06/11/2018 10:4 5 AM EDT 06/11/2018 10:51 AM EDT us Juana ASHER LAB BLOOD ORDERABLES Final Result Performing Organization Address City/[facility] Co de Phone Number [address] [address] * CBC (06/11/2018 10:45 AM EDT) WBC 4.72 3.40 - 11.20 K/uL [facility] RBC 4.28 3.80 - 4.80 M/uL [facility] HGB 12.7 12.0 - 15.0 g/dL [facility] HCT 38.4 36.0 - 46.0 % [facility] PLT 199 130 - 400 K/uL [facility] MCV 89.7 79.0 - 98.0 fL [facility] MCH 29.7 27.0 - 34.8 pg [facility] MCHC 33.1 31.5 - 36.0 g/dL [facility] RDW 12.5 10.8 - 14.6 % [facility] MPV 10.3 9.4 - 12.4 fl [facility] NRBC 0.00 /100 WBCs [facility] ABSOLUTE NRBC 0.00 K/uL [facility] Blood 06/11/2018 10:4 5 AM EDT 06/11/2018 10:51 AM EDT us Juana ASHER LAB BLOOD ORDERABLES Final Result Performing Organization Address City/State/[facility] Co de Phone Number [facility] [address] [place] [address] documented in this encounter Visit Diagnoses Diagnosis Intestinal malabsorption, unspecified type- Primary Iron deficiency anemia, unspecified iron deficiency anemia type documented in this encounter Care Teams Ammonia Operator Relationship Specialty Start Date End Date Orion Vaca MD [address] [address] PCP - General 07/05/17 Vidhi Lutz MD [address] [place] [address], [address] [place] [address] [email or web address] Historical LMR Provider 07/07/17 Orion Vaca MD [address] [address] Historical LMR Provider 07/07/17 2 documented as of this encounter Additional Source Comments The information contained in this document represents components of the legal health record. It is not the complete legal health record.[facility]
--- OUTSIDE RECORDS SUMMARY | 2025-05-28 19:21 | XMS_ITS | Encounter Summary ---
Author Organization [facility] Address [address] [place] [address] Phone Care Team Providers Care Jinrikisha Driver Name Role Phone Orion Vaca MD Primary Care Provider [phone] Vidhi Lutz MD Unavailable [phone] Encounter Details Date Type Department Care Team (Latest Contact Info) Description 03/02/2025 Transcribe Orders [facility] Laboratory [address] [id number] Juana Kruse PA 10 [place] [address] Slow transit constipation (Primary Dx); Abdominal pain, [...] EDT) IRON 73 30 - 160 ug/dL [facility] IRON BINDING CAPACITY 285 228 - 428 ug/dL [facility] TRANSFERRIN SATURAT. 26 15 - 50 % [facility] Blood 03/16/2025 2:51 PM EDT 03/16/2025 2:56 PM EDT us Juana ASHER LAB BLOOD ORDERABLES Final Result Performing Organization Address City/State/[facility] Co de Phone Number [facility] [address] [place], [place] [address] * CBC (03/16/2025 2:51 PM EDT) WBC 4.21 4.00 - 11.00 K/uL [facility] RBC 4.12 4.00 - 5.20 M/uL [facility] HGB 12.2 12.0 - 16.0 g/dL [facility] HCT 37.5 36.0 - 46.0 % [facility] PLT 190 150 - 450 K/uL [facility] MCV 91.0 80.0 - 100.0 fL [facility] MCH 29.6 27.0 - 31.0 pg [facility] MCHC 32.5 32.0 - 36.0 g/dL [facility] RDW 12.9 11.5 - 14.5 % [facility] MPV 10.7 8.4 - 12.0 fL [facility] NRBC 0.00 0.00 /100 WBCs [facility] ABSOLUTE NRBC 0.00 0.00 K/uL [facility] Blood 03/16/2025 2:51 PM EDT 03/16/2025 2:56 PM EDT Juana ASHER LAB BLOOD ORDERABLES Final Result Performing Organization Address [facility]/ZIP Co de Phone Number [address] [address] * (ABNORMAL) Immunoglobulin A (03/16/2025 2:51 PM EDT) IgA 426(H) 70 - 400 mg/dL [facility] Blood 03/16/2025 2:51 PM EDT 03/16/2025 2:56 PM EDT Juana ASHER LAB BLOOD ORDERABLES Final Result Performing Organization Address [facility]/ZIP Co de Phone Number [address] [address] * Tissue transglutaminase IgA (03/16/2025 2:51 PM EDT) TTG IGA ANTIBODY <1.2 <4.0 (Negative) U/mL [facility]PATH SUPERIOR Blood 03/16/2025 2:51 PM EDT 03/16/2025 2:57 PM EDT Juana ASHER LAB BLOOD ORDERABLES Final Result Performing Organization Address [facility]/ZIP Co de Phone Number [facility] LAB [facility]/PATH [address] [place] [address] documented in this encounter Visit Diagnoses Diagnosis Slow transit constipation- Primary Abdominal pain, right upper quadrant documented in this encounter Care Teams Jinrikisha Driver Relationship Specialty Start Date End Date Orion Vaca MD [address] [place] [address] PCP - General 07/05/17 Vidhi Lutz MD 22 [facility] [place], [place] [address] [place] [address] [email or web address] Historical LMR Provider 07/07/17 documented as of this encounter Additional Source Comments The information contained in this document represents components of the legal health record. It is not the complete legal health record.[facility]
--- OUTSIDE RECORDS SUMMARY | 2025-05-28 19:21 | XMS_ITS | Encounter Summary ---
Author Organization [facility] Address [address] [place] [address] Phone Care Team Providers Care Lead Game Designer Name Role Phone Orion Vaca MD Primary Care Provider [phone] Vidhi Lutz MD Unavailable [phone] Orion Vaca MD Unavailable [phone] Encounter Details Date Type Department Care Team (Late st Contact Info) Description 07/17/2019 Procedure Pass [facility] Endoscopy Admitting Dept Virtual Department [address] [place] [address] Social History Tobacco Use Types Packs/Day Years [...] on filedocumented in this encounter Care Teams Lead Game Designer Relationship Specialty Start Date End Date Orion Vaca MD [address] [place] [address] PCP - General 07/05/17 Vidhi Lutz MD [address] [place] [address], [facility] [address] [place] [address] [email or web address] Historical LMR Provider 07/07/17 Orion Vaca MD [address] [place] [address] Historical LMR Provider 07/07/17 2 documented as of this encounter Additional Source Comments The information contained in this document represents components of the legal health record. It is not the complete legal health record.[facility]
--- OUTSIDE RECORDS SUMMARY | 2025-05-28 19:21 | XMS_ITS | Encounter Summary ---
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 Procedures evaluate & treat Juana Kruse PA Phone: tel: fax: [address] [address] Phone: tel: Referral ID Status Reason Start Date Expiration Date Visits Re quested Visits Authorized [id number] Closed 09/23/2021 09/16/2022 99 [phone] Encounter Details Date Type Department Care Team (Latest Contact Info) Description 06/27/2021 Transcribe Orders [facility] [address] [place], [place] [address] Juana Kruse PA 10 [place] [address] Encounter for rehabilitation (Primary Dx) Social History [...] Diagnoses Orde r Schedule Ambulatory referral to [facility] Physical Therapy Outpatient Referral Routine Encounter for rehabilitation Ordered: 06/27/2021 documented as of this encounter Visit Diagnoses Diagnosis Encounter for rehabilitation- Primary documented in this encounter Care Teams Chemical Processing Supervisor Relationship Specialty Start Date End Date Orion Vaca MD [address] [place] [address] PCP - General 07/05/17 Vidhi Lutz MD [address] [facility], [address] [address] [email or web address] Historical LMR Provider 07/07/17 Orion Vaca MD [address] [place] [address] Historical LMR Provider 07/07/17 2 documented as of this encounter Additional Source Comments The information contained in this document represents components of the legal health record. It is not the complete legal health record.[facility]
--- OUTSIDE RECORDS SUMMARY | 2025-05-28 19:21 | XMS_ITS | Encounter Summary ---
Author Organization [facility] Address [address] [place] [address] Phone Care Team Providers Care Material Control Supervisor Name Role Phone Orion Vaca MD Primary Care Provider [phone] Vidhi Lutz MD Unavailable [phone] Orion Vaca MD Unavailable [phone] Reason for Referral * MRI/CAT Scan - Closed Specialty Diagnoses / Procedures Referred By Remigio [email or web address] Referred To Contact Radiology Diagnoses Other allergic rhinitis Nasal congestion Procedures CT Face Khris Golden MD Phone: tel: fax: [email or web address] Referral ID Status Reason Start Date Expiration Date Visits Re quested Visits Authorized [id number] Closed 08/07/2017 08/07/2018 1 1 Encounter Details Date Type Department Care Team (Late st Contact Info) Description 08/07/2017 Ancillary Orders Virtual Department [address] [place] [address] Khris Golden MD [address] [facility], [address] [place] [address] [email or web address] Other allergic rhinitis; Nasal congestion Social [...] disease. TOTAL CTDIvol: 21.6 mGy POS - [id number] Narrative 11/06/2017 10:39 AM EST COMPARISON: None. [...] disease. TOTAL CTDIvol: 21.6 mGy POS - [id number] us Khris Golden MD IMG CT HEAD/NECK Final R esult documented in this encounter Visit Diagnoses Diagnosis Other allergic rhinitis Nasal congestion Other diseases of nasal cavity and sinuses Other allergic rhinitis Nasal congestion Other diseases of nasal cavity and sinuses documented in this encounter Care Teams Material Control Supervisor Relationship Specialty Start Date End Date Orion Vaca MD [address] [address] PCP - General 07/05/17 Vidhi Lutz MD [address] [facility], [address] [place] [address] [email or web address] Historical LMR Provider 07/07/17 Orion Vaca MD [address] [address] Historical LMR Provider 07/07/17 2 documented as of this encounter Additional Source Comments The information contained in this document represents components of the legal health record. It is not the complete legal health record.[facility]
--- OUTSIDE RECORDS SUMMARY | 2025-05-28 19:21 | XMS_ITS | Encounter Summary ---
Author Organization [facility] Address [address] [place] [address] Phone Care Team Providers Care Biodiesel Product Manager Name Role Phone Orion Vaca MD Primary Care Provider [phone] Vidhi Lutz MD Unavailable [phone] Encounter Details Date Type Department Care Team (Latest Contact Info) Description 07/18/2024 Transcribe Orders [facility] Laboratory [address] [place], [place] [id number] Catarino Figueroa MD [address] [facility] 2 [place] [address] [email or web address] Weight loss (Primary Dx); [...] EDT) SODIUM 134 133 - 146 mmol/L [facility] POTASSIUM 3.8 3.3 - 5.1 mmol/L [facility] CHLORIDE 99 96 - 108 mmol/L [facility] CO2 25 21 - 35 mmol/L [facility] BUN 13 6 - 19 mg/dL [facility] CREATININE 0.80 0.5 - 1.5 mg/dL [facility] GLUCOSE 90 70 - 99 mg/dL [facility] ALBUMIN 3.6(L) 3.9 - 4.8 g/dL [facility] TOTAL PROTEIN 6.5 6.5 - 8.0 g/dL [facility] CALCIUM 8.2(L) 8.4 - 10.3 mg/dL [facility] ALKALINE PHOSPHATASE 50 39 - 117 U/L [facility] TOTAL BILIRUBIN 0.7 0.0 - 1.2 mg/dL [facility] AST 20 0 - 37 U/L [facility] ALT 13 0 - 40 U/L [facility] GLOBULIN 2.9 1 - 4.8 g/dL [facility] EGFR 77 >59 mL/min/1.7 3m2 [facility] Comment:Estimated glomerular filtration rate calculated using the CKD-EPI refit equation. ANION GAP 14 10 - 20 mmol/L [facility] Blood 07/18/2024 9:52 AM EDT 07/18/2024 10:04 AM EDT Catarino Figueroa MD LAB BLOOD ORDERABLES Final Result Performing Organization Address City/[facility] [place]/ZIP Co de Phone Number [address] [address] * CBC (07/18/2024 9:52 AM EDT) WBC 6.40 4.00 - 11.00 K/uL [facility] RBC 4.35 4.00 - 5.20 M/uL [facility] HGB 12.7 12.0 - 16.0 g/dL [facility] HCT 37.9 36.0 - 46.0 % [facility] PLT 202 150 - 450 K/uL [facility] MCV 87.1 80.0 - 100.0 fL [facility] MCH 29.2 27.0 - 31.0 pg [facility] MCHC 33.5 32.0 - 36.0 g/dL [facility] RDW 12.8 11.5 - 14.5 % [facility] MPV 10.2 8.4 - 12.0 fL [facility] NRBC 0.00 0.00 /100 WBCs [facility] ABSOLUTE NRBC 0.00 0.00 K/uL [facility] Blood 07/18/2024 9:52 AM EDT 07/18/2024 10:04 AM EDT us Catarino Figueroa MD LAB BLOOD ORDERABLES Final Result [address] [address] * Immunoglobulin A (07/18/2024 9:52 AM EDT) IgA 390 70 - 400 mg/dL [facility] Blood 07/18/2024 9:52 AM EDT 07/18/2024 10:04 AM EDT us Catarino Figueroa MD LAB BLOOD ORDERABLES Final Result [facility] [address] [place] [address] * Tissue transglutaminase IgA (07/18/2024 9:52 AM EDT) TTG IGA ANTIBODY <1.2 <4.0 (Negative) U/mL [facility] Blood 07/18/2024 9:52 AM EDT 07/18/2024 10:04 AM EDT Catarino Figueroa MD LAB BLOOD ORDERABLES Final Result [facility] [address] [place] [address] documented in this encounter Visit Diagnoses Diagnosis Weight loss- Primary Loss of weight Constipation, unspecified constipation type documented in this encounter Care Teams Biodiesel Product Manager Relationship Specialty Start Date End Date Orion Vaca MD [address] [place] [address] PCP - General 07/05/17 Vidhi Lutz MD 22 [facility], [facility] [address] [place] [address] [email or web address] Historical LMR Provider 07/07/17 documented as of this encounter Additional Source Comments The information contained in this document represents components of the legal health record. It is not the complete legal health record.[facility]
--- OUTSIDE RECORDS SUMMARY | 2025-05-28 19:21 | XMS_ITS | Patient Health Record ---
Author Organization [facility] Address [address] [facility] [place] [address] Care Team Providers Care Soda Drier Feeder Name Role Phone Orion Vaca MD Primary Care Provider UnavailPhylicia Pedraza Unavailable [phone] Allergies Allergen (clinical drug ingredient) Drug/Non Drug Allergy documented on EMR Reaction Allergy Type Onset Date Status ibuprofen Advil Unknown Drug Allergy Active ciprofloxacin Cipro hives Drug Allergy Act yoseph Motrin Unknown Drug Allergy Active Novocain heart races Drug Allergy Activ e sulfa hives Drug Allergy Active Penicillin hives Drug Allergy Active erythromycin Unknown Drug Allergy Acti ve adhesive tape rash Drug Allergy Act yoseph [...] Inc [address] [place] [address] [id number] Rafaela Oh Self - patient is the insured for Life [address] [place] [id number] [phone] [id number] Rafaela Oh Self - patient is the [...]
--- OUTSIDE RECORDS SUMMARY | 2025-05-28 19:21 | XMS_ITS | Encounter Summary ---
Author Organization [facility] Address [address] [place] [address] Phone Care Team Providers Care Privacy Officer Name Role Phone Orion Vaca MD Primary Care Provider [phone] Vidhi Lutz MD Unavailable Orion Vaca MD Unavailable [phone] Encounter Details Date Type Department Care Team (Late st Contact Info) Description 06/03/2018 Procedure Pass , Ct Scan - [address] [address] Social History Tobacco Use Types Packs/Day Years [...] on filedocumented in this encounter Care Teams Privacy Officer Relationship Specialty Start Date End Date Orion Vaca MD [address] [place] [address] PCP - General 07/05/17 Vidhi Lutz MD 22 [facility], [facility] [address] [place] [address] [email or web address] Historical LMR Provider 07/07/17 Orion Vaca MD [address] [place] [address] Historical LMR Provider 07/07/17 2 documented as of this encounter Additional Source Comments The information contained in this document represents components of the legal health record. It is not the complete legal health record.[facility]
--- OUTSIDE RECORDS SUMMARY | 2025-05-28 19:21 | XMS_ITS | Clinical Summary ---
Author Organization [facility] Address [address] [place] [address] Phone Care Team Providers Care Court Registry Officer Name Role Phone Halina South MD Primary Care Provider [phone] Vidhi Lutz MD Unavailable [phone] Allergies Active Allergy Reactions Criticality Noted Date [...] - 03/16/2025 11:59 PM EDT Hospital Encounter [facility] Laboratory [address] [place] [address] Juana Kruse PA Discharge Disposition: Home or Self Care 03/04/2025 3:11 PM EDT - 03/04/2025 11:59 PM EDT Hospital Encounter [facility] Laboratory [address] [address] Juana Kruse PA Discharge Disposition: Home or Self Care 03/02/2025 2:46 PM EDT - 03/02/2025 11:59 PM EDT Hospital Encounter [facility] Laboratory [address] [address] Juana Kruse PA Discharge Disposition: Home or Self Care 03/02/2025 Transcribe Orders [facility] Laboratory [address] [address] Juana Kruse PA Slow transit constipation (Primary Dx); Abdominal pain, right upper quadrant 03/02/2025 Transcribe Orders [facility] Laboratory [address] [address] Juana Kruse PA Slow transit constipation (Primary [...] 06/18/2019 06/18/2018 TSH LEVEL 07/04/2020 07/04/2019, 12/10/2018 RSV VACCINE (1 - 1-dose 75+ series) 2024 INFLUENZA VACCINE (#1) 2025 3, 07/10/2022, 06/13/2021, Additional history exists COVID-19 VACCINE (2024- season) 2025 07/28/2022, 06/18/2022, 03/10/2022, Additional history exists FIT TEST 03/04/2026 03/04/2025 COLONOSCOPY 01/16/2034 01/17/2024, [...] EDT) IRON 73 30 - 160 ug/dL [facility] IRON BINDING CAPACITY 285 228 - 428 ug/dL [facility] TRANSFERRIN SATURAT. 26 15 - 50 % [facility] Blood 03/16/2025 2:51 PM EDT 03/16/2025 2:56 PM EDT Juana ASHER LAB BLOOD ORDERABLES Final Result Performing Organization Address City/[facility]/ZIP Co de Phone Number [facility] [address] [place] [address] * Tissue transglutaminase IgA (03/16/2025 2:51 PM EDT) [facility] TTG IGA ANTIBODY <1.2 <4.0 (Negative) U/mL [facility] Blood 03/16/2025 2:51 PM EDT 03/16/2025 2:57 PM EDT Juana ASHER LAB BLOOD ORDERABLES Final Result Performing Organization Address City/[facility]/ZIP Co de Phone Number [facility] [address] [place] [address] * CBC (03/16/2025 2:51 PM EDT) [facility] WBC 4.21 4.00 - 11.00 K/uL [facility] RBC 4.12 4.00 - 5.20 M/uL [facility] HGB 12.2 12.0 - 16.0 g/dL [facility] HCT 37.5 36.0 - 46.0 % [facility] PLT 190 150 - 450 K/uL [facility] MCV 91.0 80.0 - 100.0 fL [facility] MCH 29.6 27.0 - 31.0 pg [facility] MCHC 32.5 32.0 - 36.0 g/dL [facility] RDW 12.9 11.5 - 14.5 % [facility] MPV 10.7 8.4 - 12.0 fL [facility] NRBC 0.00 0.00 /100 WBCs [facility] ABSOLUTE NRBC 0.00 0.00 K/uL [facility] Blood 03/16/2025 2:51 PM EDT 03/16/2025 2:56 PM EDT Juana ASHER LAB BLOOD ORDERABLES Final Result Performing Organization Address [facility] Co de Phone Number [address] [address] * (ABNORMAL) Immunoglobulin A (03/16/2025 2:51 PM EDT) IgA 426(H) 70 - 400 mg/dL [facility] Blood 03/16/2025 2:51 PM EDT 03/16/2025 2:56 PM EDT Juana ASHER LAB BLOOD ORDERABLES Final Result Performing Organization Address [facility] de Phone Number [address] [address] * Fecal immunochemical test x1 (FIT) (03/04/2025 1:50 PM EDT) Immuno Fecal Occult Negative Negative [facility] Stool (Stool) 03/04/2025 1:5 0 PM EDT 03/04/2025 3:13 PM EDT Juana ASHER BODY FLUIDS AND STOOLS ORDE RABLES Final Result Performing Organization Address [facility] Co de Phone Number [address] [address] * ENDOSCOPY, COLON (01/17/2024 8:38 AM EDT) Narrative Transcriptions Arnoldo Figueroa MD - 01/17/2024 8:38 AM EDT [facility] Patient Name: Rafaela Oh Attending MD:: ARNOLDO FIGUEROA MD, Procedure Date: 01/17/2024 8:38 AM Date of : 1950 Age: 73 Admit Type: Outpatient Gender: Female Room: [place] [address] Referring MD: HALINA SOUTH Exam Type: Colonoscopy [...] monitored continuously. The Olympus adult variable colonoscope [id number] #2 was introduced through the anus and [...] 8:38 AM Procedure Code(s): --- Professional --- 00705, Colonoscopy, flexible; with removal of tumor(s), polyp(s), or other lesion(s) by snare technique --- Technical --- 95663, Colonoscopy, flexible; with removal of tumor(s), polyp(s), [...] congenital malformations of intestine CPT copyright 2021 [employer]. All rights reserved. The codes documented in this report are preliminary and upon geospatial technologist reviewmay be revised to meet current compliance requirements. Procedure Date: 01/17/2024 8:38:[address] [place] [address] [place] Halina South MD GI PROCEDURE ORDERABLES F inal Result * TSH (07/04/2019 11:30 AM EDT) TSH 1.15 0.27 - 4.20 uIU/mL [facility] Blood 07/04/2019 11:3 0 AM EDT 07/04/2019 11:47 AM EDT us Juana ASHER LAB BLOOD ORDERABLES Final Result [facility] [address] [place] [address] from Last 3 Months or Most Recently Relevant to Health Maintenance Insurance MEDICARE PART A & B [facility] MEDICARE SUPPLEMENT MEDICARE PART A & B [employer] MEDICARE SUPPLEMENT MEDICARE PART A & B [employer] MEDICARE SUPPLEMENT MEDICARE PART A & B [employer] MEDICARE SUPPLEMENT MEDICARE PART A & B [employer] MEDICARE SUPPLEMENT MEDICARE PART A & B [facility] MEDICARE SUPPLEMENT MEDICARE PART A & B [employer] MEDICARE SUPPLEMENT MEDICARE PART A & B [employer] MEDICARE SUPPLEMENT MEDICARE PART A & B [employer] MEDICARE SUPPLEMENT Care Teams Court Registry Officer Relationship Specialty Start Date End Date Halina South MD [address] [place] [address] PCP - General 07/05/17 Vidhi Lutz MD [address] [place] [address], [facility] [address] [place] [address] [email or web address] Historical LMR Provider 07/07/17 Additional Source Comments The information contained in this document represents components of the legal health record. It is not the complete legal health record.[facility]
[2025-05-28 23:38] LABS: Appearance Urine Clear; Glucose Urine UA Negative (Negative); PH 5.5 (5.0-9.0); Specific Gravity - Urine <= 1.005 (1.005-1.025)
[2025-05-28 23:40] VITALS: BP 148/74; PULSE 64; TEMP 36.3; O2SAT 98
[2025-05-29 00:29] VITALS: BP 148/74; PULSE 64; RESP 16; TEMP 36.3; O2SAT 98
== END 2025-05-29 00:30 | disposition home or self-care (01) ==
PROVIDERS: Physician Assistant Medical; Emergency Provider Emergency Medicine; PCP Internal Medicine
DX: R10.30 Lower abdominal pain, unspecified (principal); R10.2 Pelvic and perineal pain; R50.9 Fever, unspecified; R11.2 Nausea with vomiting, unspecified; Z79.899 Other long term (current) drug therapy
CPT/HCPCS: 36415; 74176; 80053; 81003; 83690; 83735; 85025; 99284

== ENCOUNTER → 2025-05-28 21:05 | Outpatient (BNV) | payer MEDICARE, OTHER, SELFPAY | PROVIDERS: Emergency Provider Emergency Medicine; PCP Internal Medicine; Visit Provider Radiology Diagnostic Radiology | DX: N32.89 Other specified disorders of bladder (principal) | CPT/HCPCS: 74176 ==

== ENCOUNTER 2025-06-02 10:00 | Outpatient (AMB) | payer MEDICARE, OTHER, SELFPAY ==
--- OUTSIDE RECORDS SUMMARY | 2025-03-16 04:30 | XMS_ITS ---
Author Organization [facility] Address [address] [facility] [address] [place] [address] Care Team Providers Care Plastics Engineering Teacher Name Role Phone Orion Vaca Primary Care Provider LULI Roberto Unavailable [phone] Allergies Allergen (clinical drug ingredient) Drug/Non Drug Allergy documented on EMR Reaction Allergy Type Onset Date Status novacaine (uncoded) Unknown Allergy Active azithromycin Z pradeep (uncoded) elevated BP Allergy Active sulfamethoxazole / trimethoprim Bactrim Unknown Drug Allergy Active Levaquin Unknown Drug Allergy Active amoxicillin Amoxicillin Unknown Drug Allergy Act yoseph cortisone Cortisone severe gastritis Drug Allergy Active epinephrine Epinephrine Unknown Drug Allergy Act yoseph Vaccine product containing Influenza virus antigen (medicinal product) Influenza Vaccines Unknown Drug Allergy Ac tive Iodinated contrast media (substance) Iodinated Diagnostic Agents Unknown Drug Allergy Active erythromycin Erythromycin Unknown Drug Allergy A ctive Penicillin Unknown Drug Allergy Active REASON FOR VISIT Referral for tarsal tunnel, b/l ankle pain Medications Medication SIG (Take, Route, Frequency, Duration) Notes Start Date End Date Status Famotidine 40 MG 1 tablet Orally Once a day Active Azelastine HCl 137 MCG/SPRAY 2 puffs (1 spray in each nostril) Nasally Twice a day Active LORazepam 0.5 MG 1 tablet at bedtime as needed Orally Once a day Active Albuterol Sulfate 108 (90 Base) MCG/ACT 1 puff as needed Inhalation every 4 hrs Active Synthroid 88 MCG 1 tablet in the morn ing on an empty stomach Orally Once a day Active hydrALAZINE HCl 10 MG 1 tablet with food Orally Four times a day Active fluvoxaMINE Maleate 50 MG 1 tablet at be dtime Orally Once a day Active Metoprolol Succinate ER 50 MG 1 tablet Orally Once a day Active Vital Signs Height 64.75in in 03/16/2025 Encounters Encounter Location Date Provider Diagnosis [facility] [address] [facility] [address] [place] [address] 03/16/2025 LULI WILLIS Plan Of Treatment No Information Progress Notes * Anat AHUMADAB: 9 (74 yo F)Acc No.[id number]:03/16/2025 Consult note Patient: Rafaela FLYNN Provider: Jefry Willis DPM :1950 A ge:74 Y S ex:Female Date:03/16/2025 Phone: Address:[address] [place] [address] MARISA JIMENEZ, [id number] Pcp:Orion Vaca Subjective: * Chief Complaints: * 1 . Referral for tarsal tunnel, b/l ankle pain. * Medical History: R aynaud's Syndrome, Osteoarthritis hands, Sicca syndrome, Carpal tunnel syndrome, Hypothyroidism Hashimotos, Anxiety, IBS, Non ulcerative dyspepsia, Stomach bezoar, Visceral hypersensitivity, Allergies, Thyroid cancer, Genital herpes, , Scarlet fever, Cardiac murmur, BMD with Dr Ruffin. * Surgical History: A ppendectomy , Tonsillectomy , x3 , Gallbladder , Thyroidectomy , Hysterectomy BSO , Rt knee meniscal injury . * Family History: F ather: , CVA, heart disease. M other: , pancreatic cancer,. 2 brother(s) , 1 sister(s) . 1 son(s) , 2 daughter(s) . . * Social History: t obacco: never alcohol: ocassionally. * Medications: T aking fluvoxaMINE Maleate 50 MG Tablet 1 tablet at bedtime Orally Once a day , Taking hydrALAZINE HCl 10 MG Tablet 1 tablet with food Orally Four times a day , Taking Metoprolol Succinate ER 50 MG Tablet Extended Release 24 Hour 1 tablet Orally Once a day , Taking Synthroid 88 MCG Tablet 1 tablet in the morning on an empty stomach Orally Once a day , Taking Azelastine HCl 137 MCG/SPRAY Solution 2 puffs (1 spray in each nostril) Nasally Twice a day , Taking Famotidine 40 MG Tablet 1 tablet Orally Once a day , Taking Albuterol Sulfate 108 (90 Base) MCG/ACT Aerosol Powder Breath Activated 1 puff as needed Inhalation every 4 hrs , Taking LORazepam 0.5 MG Tablet 1 tablet at bedtime as needed Orally Once a day * Allergies: E rythromycin, Amoxicillin, Levaquin, Bactrim, Penicillin, Influenza Vaccines, Epinephrine, novacaine, Z pradeep: elevated BP, Cortisone: severe gastritis, Iodinated Diagnostic Agents. Objective: * Vitals: H t: 64.75in, Ht-cm: 164.47. Therapeutic Interventions: Assessment: Plan: * Treatment: * Billing Information: * Visit Code: * Procedure Codes: * Electronic signature of RONNY WILLIS D.P.M on 06/02/2025 at 12:58 PM EDT Sign off status: Pending * Provider: Jefry Willis DPM Date: 03/16/2025 Generated for Renzo salgado/Catrachito/Stan on: 06/02/2025 12:58 PM EDT
[2025-06-02 10:21] VITALS: BP 124/70; PULSE 63; O2SAT 99; BMI 21.0
--- NOTE | 2025-06-02 10:21 | A.OFFVIS_ITS ---
Vital Signs 06/02/25 10:21 Height 5 ft 7 in Weight 134 lb BMI 21.0 BP 124/70 Blood Pressure Location Lt brachial Position Sitting Pulse 63 Pulse Source Pulse Oximeter Pulse Oximetry (%) 99 Oxygen Delivery Method Room Air Intake Visit Reasons: Follow up Service Desk Specialist Required: No Accompanied by: Self / Same As Patient Allergies Gadolinium-Containing Contrast Medi Allergy (Intermediate, Verified 06/02/25 10:25) heart racing Latex, Natural Rubber Allergy (Mild, Verified 06/02/25 10:25) unknown erythromycin base (Erythromycin Base) Allergy (Unknown, Verified 06/02/25 10:25) ITCH/HIVES eugenol (Eugenol) Allergy (Unknown, Verified 06/02/25 10:25) HEART RACING/FAINTING levofloxacin (From Levaquin) Allergy (Unknown, Verified 06/02/25 10:25) ITCHING penicillin G (Penicillin G) Allergy (Unknown, Verified 06/02/25 10:25) ITCH/HIVES sulfamethoxazole (From Bactrim) Allergy (Unknown, Verified 06/02/25 10:25) ITCH/HIVES trimethoprim (From Bactrim) Allergy (Unknown, Verified 06/02/25 10:25) ITCH/HIVES epinephrine (Epinephrine) Adverse Reaction (Unknown, Verified 06/02/25 10:25) TACHYCARDIA, FEELING FAINT From Novocain Adverse Reaction (Unknown, Uncoded 07/16/24 10:12) TACHYCARDIA, FEELING FAINT Medication List - Last Reconciled 06/02/25 by JEREMY Russell albuterol sulfate 90 mcg/actuation (ProAir HFA) 2 puffs inhalation Q6H PRN alprazolam (Xanax) 0.5 - 1 mg (1 - 2 x 0.5 mg) PO BEDTIME PRN 30 days epinephrine 0.3 mg IM Q4H PRN famotidine 20 mg PO DAILY fluticasone propionate 50 mcg/actuation (Flonase Allergy Relief) 1 spray intranasal DAILY fluvoxamine 50 mg PO DAILY hydralazine 10 mg PO DAILY levocetirizine (Xyzal) 5 mg PO DAILY levothyroxine (Synthroid) 88 mcg PO DAILY metoprolol succinate ER 50 mg PO DAILY ondansetron 4 mg PO Q8H PRN tretinoin 0.05% 1 appl topical BEDTIME HPI Comments Details: 74-yr-old female presents for f/u visit of neuralgia and RLS. Interval labs: B12, iron, B6, folate - WNL. Patient reports she has been noticing increased tiredness- now sleeping 10-12 hours. Has some snoring. States that Dr Vaca suggested she consider having a sleep study. She has also noticed some episodes of orthostatic lightheadedness. For example, once when having a bowel movement, she was a bit constipated, and when she stood up, she felt off-balance and was very unsteady, like she could not stand up straight. She has also been having a few episodes of orthostatic off-balance sensation over the past 4 months. In the office today, she bends forward, which triggers transient lightheade dness\ She states that she only takes the alprazolam at night, feels this is out of her system by the next day, and she does not think it is contributing to her balance difficulties. She is drinking a lot of water with/ electrolytes in it. She also had a recent [facility] ER eval for severe abdominal pain. Has been having increased pain for a couple of weeks. She states she has not been able to get to see her GI in [place]. She has chronic constipation. Tries to manage with Miralax. Urinates frequently, feels lower abdominal pressure. Denies dysuria. [facility] ER work-up: * Abd CT w/o contrast: Thick-walled urinary bladder, which may be due to underdistention or cystitis. * No evidence of diverticulitis. No significant diverticular disease of the colon. * UA- negative She also reports she was recently stung by ? a wasp- had LUE pain, swelling on her LUE and back. Denies SOB. She has not seen her resident care supervisor in a couple of years. [facility] states that they would not give her the EPI-Pen refill due to the listed Bactrim allergy; however, the patient does not recall taking this medication. She also has been having increased deep pressure headaches in the frontal region and ears, a/w increased difficulty concentrating. Reports chronic left ear tinnitus/inner ear popping sensation, but now has bilateral tinnitus/inner ear popping sensation. She is still having burning pains in her bilateral feet, more so than in her hands. She saw a drawing in machine tender helper, who advised her to try PT for balance, but she put this on hold due to her GI s/s. She is still experiencing cognitive fogginess, such as looking in the wrong drawer and word swapping. PFSH Medical History Osteopenia Anemia H/O malignant neoplasm of thyroid Surgical History Hx of cholecystectomy Hx of appendectomy History of knee replacement H/O total hysterectomy Family History Father Myocardial infarction Stroke Mother Cancer Brother Diabetes Brother Diabetes Social History Alcohol intake: current Alcohol intake frequency: 0-2 drinks per day Patient Tobacco Use Status: Never used Tobacco Physical Exam Vital Signs: Last Vital Signs Pulse 63 06/02/25 10:21 BP 124/70 06/02/25 10:21 Pulse Ox 99 06/02/25 10:21 Oxygen Delivery Method Room Air 06/02/25 10:21 BMI result Body Mass Index 21.0 Const General: cooperative and no acute distress Orientation/consciousness: patient oriented x3 Resp Effort & Inspection: normal respiratory effort and able to speak in complete sentences Neuro General: patient oriented x3 Cranial nerves: Yes CN's II-XII intact bilaterally Cognition (Neuro): normal cognition Psych Appearance: grossly normal Mental Status: mental status grossly normal Speech and movement: Normal speech and movement present Affect: normal affect Attitude: cooperative Assessment & Plan Assessment & Plan (1) Paresthesia: Comment: generalized, at rest/night. Likely RLS. 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 Code(s): G62.9 - Polyneuropathy, unspecified Category: Medical (4) Bilateral carpal tunnel syndrome: Code(s): G56.03 - Carpal tunnel syndrome, bilateral upper limbs Category: Medical (5) Sleep difficulties: Code(s): G47.9 - Sleep disorder, unspecified Category: Medical (6) Headache: Code(s): R51.9 - Headache, unspecified Category: Medical Qualifiers: Headache type: unspecified Headache chronicity pattern: episodic headache Intractability: not intractable Qualified Code(s): R51.9 - Headache, unspecified (7) Gait difficulty: Code(s): R26.9 - Unspecified abnormalities of gait and mobility Category: Medical (8) Tinnitus: Code(s): H93.19 - Tinnitus, unspecified ear Category: Medical Qualifiers: Laterality: bilateral Qualified Code(s): H93.13 - Tinnitus, bilateral (9) Snoring: Code(s): R06.83 - Snoring Category: Medical (10) Excessive daytime sleepiness: Code(s): G47.19 - Other hypersomnia Category: Medical Plan Pt is advised to undergo brain MRI w/wo- to assess for secondary etiologies of worsening headaches, tinnitus, and balance difficulties. * Patient requests an angiolytic before MRI; previously, low-dose clonazepam was effective. * The patient is aware that she cannot drive herself to the appointment. Pt is advised to undergo an in-lab sleep study to assess for sleep apnea and PLMS. Will take the liberty of requesting a GI consult. Pt advised to f/u with Dr Vaca about her need for an EpiPen? Refer back to ENT. For cognition and mood/anxiety: Reviewed labs- WNL Continue psychotherapy Continue Fluvoxamine 50 mg qhs- for anxiety. Continue Xanax 0.5-1mg qhs, may take one extra tab per day prn. For neuralgia, BLE pain, and CTS: * Use carpal tunnel splints while sleeping as needed. * PT as ordered * Try foot/ankle exercises- a list of exercises given to the patient. * Follow up with podiatry as scheduled for a known history of tarsal tunnel syndrome. Future considerations: Trying an allergy/MAST cell d/o tx, such as doxepin-, Alpha-Lipoic acid, Lyrica, Horizant in f/u. Ortho consult for carpal tunnel syndrome. Previous trials: Cymbalta, Gabapentin. For headaches: * Start Riboflavin 400mg qam * Start C0-Q 10 400mg qam- with/ higher fat food. * Start Magnesium 400mg qhs. * May use Tylenol prn for headache. f/u in 4-6 months or sooner prn Orders: Orders RT PSG in-lab sleep study Today G47.19 - Other hypersomnia, G47.9 - Sleep disorder, unspecified, R06.83 - Snoring MR head/brain wo/w con Today H93.19 - Tinnitus, unspecified ear, R26.9 - Unspecified abnormalities of gait and mobility, R41.3 - Other amnesia, R51.9 - Headache, unspecified Referrals Gastroenterology Referral K21.9 - Gastro-esophageal reflux disease without esophagitis, K57.92 - Diverticulitis of intestine, part unspecified, without perforation or abscess without bleeding, K59.00 - Constipation, unspecified, R10.30 - Lower abdominal pain, unspecified Medications: New riboflavin (vitamin B2) 400 mg PO DAILY 90 tabs 3RF 90 days clonazepam (Klonopin) 0.25 - 0.5 mg orally 1 hr before MRI, and may repeat x's 1; 2 tabs 0RF 1 day MDD 2 tabs coenzyme Q10 Daily in a.m.. Take with higher fat food 400 mg PO DAILY 90 caps 3RF 90 days magnesium oxide may hold for loose stools 400 mg PO BEDTIME 90 tabs 3RF 90 days Coding Level of Care Code Est Pt Level 4 (83686) Diagnoses Paresthesia R20.2 Tarsal tunnel syndrome, bilateral G57.53 Polyneuropathy G62.9 Bilateral carpal tunnel syndrome G56.03 Sleep difficulties G47.9 Nonintractable episodic headache, unspecified headache type R51.9 Headache type: unspecified Headache chronicity pattern: episodic headache Intractability: not intractable Gait difficulty R26.9 Tinnitus of both ears H93.13 Laterality: bilateral Snoring R06.83 Excessive daytime sleepiness G47.19 Philipp Sleepiness Scale Questions Sitting and reading: high chance of dozing Watching TV: high chance of dozing Sitting inactive in a theater, movie etc.: would never doze As a passenger in a car for an hour without break: would never doze Lying down in the afternoon when circumstances permit: high chance of dozing Sitting and talking to someone: would never doze Sitting quietly after lunch without alcohol: high chance of dozing In a car, while stopped for a few minutes in the traffic: would never doze ESS < 10: normal, ESS > 12: pathologic: 12
--- OUTSIDE RECORDS SUMMARY | 2025-06-02 12:57 | XMS_ITS | Encounter Summary ---
Author Organization [facility] Address [address] [place] [address] Phone Care Team Providers Care Coal And Ash Supervisor Name Role Phone Orion Vaca MD Primary Care Provider [phone] Vidhi Lutz MD Unavailable [phone] Orion Vaca MD Unavailable [phone] Encounter Details Date Type Department Care Team (Latest Contact Info) Description 12/10/2018 Transcribe Orders [facility] [address] [address] Juana Kruse PA 10 [place] [address] GERD with esophagitis (Primary Dx); Iron deficiency [...] EDT) FERRITIN 189(H) 13 - 150 ug/L [facility] Blood 12/10/2018 11:1 2 AM EDT 12/10/2018 11:27 AM EDT us Juana ASHER LAB BLOOD ORDERABLES Final Result Performing Organization Address City/[facility]/ZIP Co de Phone Number [address] [address] * TSH (12/10/2018 11:12 AM EDT) TSH 1.93 0.27 - 4.20 uIU/mL [facility] Blood 12/10/2018 11:1 2 AM EDT 12/10/2018 11:27 AM EDT us Juana A[facility] LAB BLOOD ORDERABLES Final Result Performing Organization Address [facility] Co de Phone Number [address] [address] * Iron and iron binding capacity (12/10/2018 11:12 AM EDT) Pathologist [facility] IRON 100 30 - 160 ug/dL [facility] IRON BINDING CAPACITY 272 228 - 428 ug/dL [facility] TRANSFERRIN SATURAT. 37 15 - 50 % [facility] Blood 12/10/2018 11:1 2 AM EDT 12/10/2018 11:27 AM EDT Juana ASHER LAB BLOOD ORDERABLES Final Result Performing Organization Address [facility] Co de Phone Number [address] [address] * (ABNORMAL) CBC (12/10/2018 11:12 AM EDT) WBC 5.93 3.40 - 11.20 K/uL [facility] RBC 4.82(H) 3.80 - 4.80 M/uL [facility] HGB 14.3 12.0 - 15.0 g/dL [facility] HCT 42.7 36.0 - 46.0 % [facility] PLT 221 130 - 400 K/uL [facility] MCV 88.6 79.0 - 98.0 [facility] MCH 29.7 27.0 - 34.8 pg [facility] MCHC 33.5 31.5 - 36.0 g/dL [facility] RDW 12.7 10.8 - 14.6 % [facility] MPV 10.4 9.4 - 12.4 [facility] NRBC 0.00 0.00 /100 WBCs [facility] ABSOLUTE NRBC 0.00 0.00 K/uL [facility] Blood 12/10/2018 11:1 2 AM EDT 12/10/2018 11:27 AM EDT us Juana A[facility] LAB BLOOD ORDERABLES Final Result Performing Organization Address City/State/[facility] Co de Phone Number [facility] [address] [place] [address] documented in this encounter Visit Diagnoses Diagnosis GERD with esophagitis- Primary Iron deficiency anemia, unspecified iron deficiency anemia type documented in this encounter Care Teams Coal And Ash Supervisor Relationship Specialty Start Date End Date Orion Vaca MD [address] [address] PCP - General 07/05/17 Vidhi Lutz MD [address] [place] [address], [address] [place] [address] [email or web address] Historical LMR Provider 07/07/17 Orion Vaca MD [address] [address] Historical LMR Provider 07/07/17 2 documented as of this encounter Additional Source Comments The information contained in this document represents components of the legal health record. It is not the complete legal health record.[facility]
--- OUTSIDE RECORDS SUMMARY | 2025-06-02 12:57 | XMS_ITS | Clinical Summary ---
Author Organization [facility] Address [address] [place] [address] Phone Care Team Providers Care Worm Packer Name Role Phone Orion Vaca MD Primary Care Provider [phone] Allergies Active Allergy Reactions Criticality Noted Date [...] 10 mg tablet Take by mouth. Active Active Problems Problem Noted Date Diagnosed Date Dyspnea on exertion 05/24/2025 Primary hypertension 05/24/2025 Abnormal nuclear stress test 05/24/2025 Overview (05/24/2025): Positive test 2021 but symptoms sounded nonischemic. Subsequently had a normal stress echo. Medical History Medical History Date Comments Thyroid ca (CMS/HCC V24, CMS/HCC V28) DX:Thyroid ca (HCC); COMMENT: 1994 Hypothyroidism 08/10/2009 DX:Hypothyroidis m Malaise [...] 12/25/2024 1:56 PM EDT Plan of Treatment Health Maintenance [...] 09/17/2024 COVID-19 Vaccine (7 - Pfizer risk season) 2025 06/03/2024, 07/28/2022, 06/18/2022, Additional history exists Influenza [...] patient's age to complete this topic Insurance MEDICARE Care Teams Worm Packer Relationship Specialty Start Date End Date Orion Vaca MD [address] [place] [address] PCP - General Internal Medicine 10/09/12
--- OUTSIDE RECORDS SUMMARY | 2025-06-02 12:57 | XMS_ITS | Encounter Summary ---
Author Organization [facility] Address [address] [place] [address] Phone Care Team Providers Care Telecommunication Lines Repairer Name Role Phone Orion Vaca MD Primary Care Provider [phone] Vidhi Lutz MD Unavailable Orion Vaca MD Unavailable [phone] Encounter Details Date Type Department Care Team (Late st Contact Info) Description 10/06/2017 Procedure Pass [facility], Ct Scan - [address] [address] Social History Tobacco Use Types Packs/Day Years [...] on filedocumented in this encounter Care Teams Telecommunication Lines Repairer Relationship Specialty Start Date End Date Orion Vaca MD [address] [place] [address] PCP - General 07/05/17 Vidhi Lutz MD [address] [facility], [facility] [address] [place] [address] [email or web address] Historical LMR Provider 07/07/17 Orion Vaca MD [address] [place] [address] Historical LMR Provider 07/07/17 2 documented as of this encounter Additional Source Comments The information contained in this document represents components of the legal health record. It is not the complete legal health record.[facility]
--- OUTSIDE RECORDS SUMMARY | 2025-06-02 12:57 | XMS_ITS | Encounter Summary ---
Author Organization [facility] Address [email or web address] [place] [address] Phone Care Team Providers Care Photovoltaic Installation Technician Name Role Phone Orion Vaca MD Primary Care Provider [phone] Vidhi Lutz MD Unavailable [phone] Orion Vaca MD Unavailable [phone] Encounter Details Date Type Department Care Team (Latest Contact Info) Description 06/11/2018 Transcribe Orders [facility] [address] [address] Juana Kruse PA 10 [place] [address] Intestinal malabsorption, unspecified type (Primary Dx); Iron [...] EDT) MAGNESIUM 2.3 1.6 - 2.6 mg/dL [facility] Blood 06/11/2018 10:4 5 AM EDT 06/11/2018 10:51 AM EDT [facility] A[facility] LAB BLOOD ORDERABLES Final Result Performing Organization Address [facility] de Phone Number [address] [address] * Zinc (06/11/2018 10:45 AM EDT) ZINC 0.74 0.66 - 1.10 mcg/mL [facility] Comment: (NOTE) ADDITIONAL INFORMATION This test was developed and its performance characteristics determined by [facility] in a manner consistent with CLIA requirements. This test has not been cleared or approved by the U.S. Food and Drug Administration. Blood 06/11/2018 10:4 5 AM EDT 06/11/2018 10:50 AM EDT [facility] A[facility] LAB BLOOD ORDERABLES Final Result Performing Organization Address [facility] de Phone Number [facility] [address] [place] [address] * 25-OH vitamin D (06/11/2018 10:45 AM EDT) 25 OH VIT D (TOTAL) 39 30 - 60 ng/mL [facility] Blood 06/11/2018 10:4 5 AM EDT 06/11/2018 10:51 AM EDT [facility] BLOOD ORDERABLES Final Result Performing Organization Address [facility] de Phone Number [address] [address] * (ABNORMAL) Vitamin B12 (06/11/2018 10:45 AM EDT) VITAMIN B12 1,602(H) 232 - 1,245 pg/mL [facility] Blood 06/11/2018 10:4 5 AM EDT 06/11/2018 10:51 AM EDT [facility] BLOOD ORDERABLES Final Result [address] [address] * Ferritin (06/11/2018 10:45 AM EDT) FERRITIN 144 13 - 150 ug/L [facility] Blood 06/11/2018 10:4 5 AM EDT 06/11/2018 10:51 AM EDT [facility] BLOOD ORDERABLES Final Result Performing Organization Address [facility] Co de Phone Number [address] [address] * Iron and iron binding capacity (06/11/2018 10:45 AM EDT) IRON 92 30 - 160 ug/dL [facility] IRON BINDING CAPACITY 260 228 - 428 ug/dL [facility] TRANSFERRIN SATURAT. 35 15 - 50 % [facility] Blood 06/11/2018 10:4 5 AM EDT 06/11/2018 10:51 AM EDT us Juana A[facility] LAB BLOOD ORDERABLES Final Result Performing Organization Address City/[facility] Co de Phone Number [address] [address] * CBC (06/11/2018 10:45 AM EDT) WBC 4.72 3.40 - 11.20 K/uL [facility] RBC 4.28 3.80 - 4.80 M/uL [facility] HGB 12.7 12.0 - 15.0 g/dL [facility] HCT 38.4 36.0 - 46.0 % [facility] PLT 199 130 - 400 K/uL [facility] MCV 89.7 79.0 - 98.0 fL [facility] MCH 29.7 27.0 - 34.8 pg [facility] MCHC 33.1 31.5 - 36.0 g/dL [facility] RDW 12.5 10.8 - 14.6 % [facility] MPV 10.3 9.4 - 12.4 fl [facility] NRBC 0.00 /100 WBCs [facility] ABSOLUTE NRBC 0.00 K/uL [facility] Blood 06/11/2018 10:4 5 AM EDT 06/11/2018 10:51 AM EDT us [facility] BLOOD ORDERABLES Final Result Performing Organization Address City/State/[facility] Co de Phone Number [facility] [address] [place] [address] documented in this encounter Visit Diagnoses Diagnosis Intestinal malabsorption, unspecified type- Primary Iron deficiency anemia, unspecified iron deficiency anemia type documented in this encounter Care Teams Photovoltaic Installation Technician Relationship Specialty Start Date End Date Orion Vaca MD [address] [address] PCP - General 07/05/17 Vidhi Lutz MD [address] [place] [address], [address] [place] [address] [email or web address] Historical LMR Provider 07/07/17 Orion Vaca MD [address] [address] Historical LMR Provider 07/07/17 2 documented as of this encounter Additional Source Comments The information contained in this document represents components of the legal health record. It is not the complete legal health record.[facility]
--- OUTSIDE RECORDS SUMMARY | 2025-06-02 12:57 | XMS_ITS | Encounter Summary ---
Author Organization [facility] Address [address] [place] [address] Phone Care Team Providers Care Account Information Clerk Name Role Phone Orion Vaca MD Primary Care Provider [phone] Vidhi Lutz MD Unavailable [phone] Orion Vaca MD Unavailable [phone] Encounter Details Date Type Department Care Team (Latest Contact Info) Description 09/25/2017 Transcribe Orders [facility] [address] [address] Juana Kruse PA 10 [place] [address] Blood loss anemia (Primary Dx); Reflux esophagitis [...] VITAMIN A 56.5 32.5 - 78.0 mcg/dL [facility] MED/PATH SUPERIOR Comment: (NOTE) ADDITIONAL INFORMATION This test was developed and its performance characteristics determined by [facility] in a manner consistent with CLIA requirements. This test has not been cleared or approved by the U.S. Food and Drug Administration. Blood 09/25/2017 2:16 PM EST 09/25/2017 2:28 PM EST Juana ASHER LAB BLOOD ORDERABLES Final Result Performing Organization Address [facility] de Phone Number [facility] MED/PATH [place] [address] * Vitamin K (09/25/2017 2:16 PM EST) [facility] VITAMIN K1 0.59 0.10 - 2.20 ng/mL [facility] MED/[facility] SUPERIOR Comment: (NOTE) ADDITIONAL INFORMATION This test was developed and its performance characteristics determined by [facility] in a manner consistent with CLIA requirements. This test has not been cleared or approved by the U.S. Food and Drug Administration. Blood 09/25/2017 2:16 PM EST 09/25/2017 2:28 PM EST Juana ASHER LAB BLOOD ORDERABLES Final Result Performing Organization Address [facility] de Phone Number [facility] MED/PATH [place] [address] * Vitamin E (09/25/2017 2:16 PM EST) [facility] VIT E, A-TOCOPHEROL 16.1 5.5 - 17.0 mg/L [facility] MED/PATH SUPERIOR Comment: (NOTE) ADDITIONAL INFORMATION This test was developed and its performance characteristics determined by [facility] in a manner consistent with CLIA requirements. This test has not been cleared or approved by the U.S. Food and Drug Administration. Blood 09/25/2017 2:16 PM EST 09/25/2017 2:28 PM EST Juana ASHER LAB BLOOD ORDERABLES Final Result [facility] MED/PATH [address] [place] [address] * Tissue transglutaminase IgA (09/25/2017 2:16 PM EST) TTG IGA ANTIBODY <1.2 <4.0 (Negative) U/mL [facility] DPT OF LAB MED AND PAT+ Blood 09/25/2017 2:16 PM EST 09/25/2017 2:28 PM EST Juana ASHER LAB BLOOD ORDERABLES Final Result Performing Organization Address [facility] de Phone Number [facility] DPT OF LAB MED AND PAT+ [address] [place] [address] * Immunoglobulin A (09/25/2017 2:16 PM EST) IgA 371 70 - 400 mg/dL [facility] Blood 09/25/2017 2:16 PM EST 09/25/2017 2:28 PM EST Juana ASHER LAB BLOOD ORDERABLES Final Result Performing Organization Address City[facility] Co de Phone Number [facility] [address] [place] [address] * Magnesium (09/25/2017 2:16 PM EST) MAGNESIUM 2.3 1.6 - 2.6 mg/dL [facility] Blood 09/25/2017 2:16 PM EST 09/25/2017 2:28 PM EST us Juana ASHER LAB BLOOD ORDERABLES Final Result Performing Organization Address [facility] Co de Phone Number [address] [address] * Zinc (09/25/2017 2:16 PM EST) ZINC 0.78 0.66 - 1.10 mcg/mL [facility] MED/PATH SUPERIOR Comment: (NOTE) ADDITIONAL INFORMATION This test was developed and its performance characteristics determined by [facility] in a manner consistent with CLIA requirements. This test has not been cleared or approved by the U.S. Food and Drug Administration. Blood 09/25/2017 2:16 PM EST 09/25/2017 2:28 PM EST us Juana ASHER LAB BLOOD ORDERABLES Final Result Performing Organization Address [facility] Co de Phone Number [facility] MED/PATH SUPERIOR [address] [place] [address] * 25-OH vitamin D (09/25/2017 2:16 PM EST) 25 OH VIT D (TOTAL) 41 30 - 1,000 ng/mL [facility] Blood 09/25/2017 2:16 PM EST 09/25/2017 2:28 PM EST Juana ASHER LAB BLOOD ORDERABLES Final Result Performing Organization Address [facility] Co de Phone Number [address] [address] * (ABNORMAL) Vitamin B12 (09/25/2017 2:16 PM EST) VITAMIN B12 1,611(H) 243 - 894 pg/mL [facility] Blood 09/25/2017 2:16 PM EST 09/25/2017 2:28 PM EST us Juana ASHER LAB BLOOD ORDERABLES Final Result Performing Organization Address [facility]/ZIP Co de Phone Number [address] [address] * (ABNORMAL) Folate (09/25/2017 2:16 PM EST) FOLIC ACID >20.0(H) 4.2 - 19.9 ng/mL [facility] Blood 09/25/2017 2:16 PM EST 09/25/2017 2:28 PM EST Juana ASHER LAB BLOOD ORDERABLES Final Result Performing Organization Address [facility] Co ok Phone Number [address] [address] * Ferritin (09/25/2017 2:16 PM EST) FERRITIN 94 13 - 150 ug/L [facility] Blood 09/25/2017 2:16 PM EST 09/25/2017 2:28 PM EST us Juana ASHER LAB BLOOD ORDERABLES Final Result Performing Organization Address [facility] Co ok Phone Number [address] [address] * (ABNORMAL) Comprehensive metabolic panel (09/25/2017 2:16 PM EST) SODIUM 141 133 - 146 mmol/L [facility] POTASSIUM 4.4 3.3 - 5.1 mmol/L [facility] CHLORIDE 104 96 - 108 mmol/L [facility] CO2 27 21 - 35 mmol/L [facility] BUN 21(H) 6 - 19 mg/dL [facility] CREATININE 0.70 0.5 - 1.5 mg/dL [facility] GLUCOSE 90 70 - 99 mg/dL [facility] ALBUMIN 4.1 3.9 - 4.8 g/dL [facility] TOTAL PROTEIN 7.3 6.5 - 8.0 g/dL [facility] CALCIUM 8.8 8.4 - 10.3 mg/dL [facility] ALKALINE PHOSPHATASE 59 39 - 117 U/L [facility] TOTAL BILIRUBIN 0.3 0 - 1.2 mg/dL [facility] AST 22 0 - 37 U/L [facility] ALT 21 0 - 40 U/L [facility] GLOBULIN 3.2 1 - 4.8 g/dL [facility] EGFR >60 >60 mL/min/1.7 3m2 [facility] Comment:Abnormal if <60. If patient is -Sammarinese, multiply the result by 1.21. ANION GAP 14 10 - 20 mmol/L [facility] Blood 09/25/2017 2:16 PM EST 09/25/2017 2:28 PM EST us Juana ASHER LAB BLOOD ORDERABLES Final Result Performing Organization Address City/State/[facility] Co de Phone Number [facility] [address] [place] [address] * CBC and differential (09/25/2017 2:16 PM EST) WBC 5.98 3.40 - 11.20 K/uL [facility] RBC 4.51 3.80 - 4.80 M/uL [facility] HGB 13.2 12.0 - 15.0 g/dL [facility] HCT 39.3 36.0 - 46.0 % [facility] PLT 203 130 - 400 K/uL [facility] MCV 87.1 79.0 - 98.0 fL [facility] MCH 29.3 27.0 - 34.8 pg [facility] MCHC 33.6 31.5 - 36.0 g/dL [facility] RDW 12.9 10.8 - 14.6 % [facility] MPV 9.9 9.4 - 12.4 fl [facility] NRBC 0.00 /100 WBCs [facility] ABSOLUTE NRBC 0.00 K/uL [facility] DIFF METHOD Auto [facility] NEUTS 60.2 45.30 - 77.70 % [facility] LYMPHS 29.8 12.30 - 39.70 % [facility] MONOS 7.2 4.10 - 12.80 % [facility] EOS 1.8 0 - 7.2 % [facility] BASOS 0.7 0 - 2.80 % [facility] Granulocytes, immature (%) 0.3 0.0 - 0.9 % [facility] ABSOLUTE NEUTS 3.60 1.40 - 7.70 K/uL [facility] ABSOLUTE LYMPHS 1.78 0.60 - 3.20 K/uL [facility] ABSOLUTE MONOS 0.43 0.11 - 0.59 K/uL [facility] ABSOLUTE EOS 0.11 0.01 - 0.50 K/uL [facility] ABSOLUTE BASOS 0.04 0.00 - 0.08 K/uL [facility] Granulocytes, immature 0.02 0.00 - 0.05 K/uL [facility] Blood 09/25/2017 2:16 PM EST 09/25/2017 2:28 PM EST us Juana ASHER LAB BLOOD ORDERABLES Final Result Performing Organization Address City/State/[facility] Co de Phone Number [address] [address] documented in this encounter Visit Diagnoses Diagnosis Blood loss anemia- Primary Acute posthemorrhagic anemia Reflux esophagitis documented in this encounter Care Teams Account Information Clerk Relationship Specialty Start Date End Date Orion Vaca MD [address] [address] PCP - General 07/05/17 Vidhi Lutz MD [address] [place] [address], [facility] [address] [place] [address] [email or web address] Historical LMR Provider 07/07/17 Orion Vaca MD [address] [address] Historical LMR Provider 07/07/17 2 documented as of this encounter Additional Source Comments The information contained in this document represents components of the legal health record. It is not the complete legal health record.[facility]
--- OUTSIDE RECORDS SUMMARY | 2025-06-02 12:57 | XMS_ITS | Encounter Summary ---
Author Organization [facility] Address [address] [place] [address] Phone Care Team Providers Care Combine Inspector Name Role Phone Orion Vaca MD Primary Care Provider [phone] Vidhi Lutz MD Unavailable Orion Vaca MD Unavailable [phone] Encounter Details Date Type Department Care Team (Late st Contact Info) Description 06/03/2018 Procedure Pass [facility], Ct Scan - [address] [address] Social History Tobacco Use Types Packs/Day Years [...] on filedocumented in this encounter Care Teams Combine Inspector Relationship Specialty Start Date End Date Orion Vaca MD [address] [place] [address] PCP - General 07/05/17 Vidhi Lutz MD 22 [facility], [facility] [address] [place] [address] [email or web address] Historical LMR Provider 07/07/17 Orion Vaca MD [address] [place] [address] Historical LMR Provider 07/07/17 2 documented as of this encounter Additional Source Comments The information contained in this document represents components of the legal health record. It is not the complete legal health record.[facility]
--- OUTSIDE RECORDS SUMMARY | 2025-06-02 12:57 | XMS_ITS | Encounter Summary ---
Author Organization [facility] Address [address] [place] [address] Phone Care Team Providers Care Record Tester Name Role Phone Orion Vaca MD Primary Care Provider [phone] Vidhi Lutz MD Unavailable [phone] Orion Vaca MD Unavailable [phone] Encounter Details Date Type Department Care Team (Late st Contact Info) Description 08/07/2017 Procedure Pass [facility], Ct Scan - [address] [address] Social History Tobacco Use Types Packs/Day Years [...] on filedocumented in this encounter Care Teams Record Tester Relationship Specialty Start Date End Date Orion Vaca MD [address] [place] [address] PCP - General 07/05/17 Vidhi Lutz MD 22 [facility], [facility] 203 [place] [address] [email or web address] Historical LMR Provider 07/07/17 Orion Vaca MD [address] [place] [address] Historical LMR Provider 07/07/17 2 documented as of this encounter Additional Source Comments The information contained in this document represents components of the legal health record. It is not the complete legal health record.[facility]
--- OUTSIDE RECORDS SUMMARY | 2025-06-02 12:58 | XMS_ITS | Encounter Summary ---
Author Organization [facility] Address [address] [place] [address] Phone Care Team Providers Care Roping Tender Name Role Phone Orion Vaca MD Primary Care Provider [phone] Vidhi Lutz MD Unavailable [phone] Encounter Details Date Type Department Care Team (Late st Contact Info) Description 01/17/2024 Procedure Pass [facility] Endoscopy Admitting Dept Virtual Department 30 [place], [place] [id number] Social History Tobacco Use Types Packs/Day Years [...] on filedocumented in this encounter Care Teams Roping Tender Relationship Specialty Start Date End Date Orion Vaca MD [address] [place] [address] PCP - General 07/05/17 Vidhi Lutz MD [address] [place] [address] [email or web address] Historical LMR Provider 07/07/17 documented as of this encounter Additional Source Comments The information contained in this document represents components of the legal health record. It is not the complete legal health record.[facility]
--- OUTSIDE RECORDS SUMMARY | 2025-06-02 12:58 | XMS_ITS | Patient Health Record ---
Author Organization [facility] Address [address] [facility] [facility] [place] [place] [address] Care Team Providers Care Medical Sales Associate Name Role Phone Orion Vaca MD Primary Care Provider UnavailPhylicia Pedraza Unavailable [phone] Allergies Allergen (clinical drug ingredient) Drug/Non Drug [...] Inc [address] [place] [address] [id number] Rafaela Oh Self - patient is the insured for Life [address] [place] [phone] Rafaela Oh Self - patient is the [...]
--- OUTSIDE RECORDS SUMMARY | 2025-06-02 12:58 | XMS_ITS | Encounter Summary ---
Author Organization [facility] Address [address] [place] [address] Phone Care Team Providers Care Condenser Winder Name Role Phone Orion Vaca MD Primary Care Provider [phone] Vidhi Lutz MD Unavailable [phone] Encounter Details Date Type Department Care Team (Latest Contact Info) Description 12/12/2023 Transcribe Orders [facility] [address] [id number] Juana Kruse PA 10 [place] [address] Diarrhea, unspecified type (Primary Dx) Social History [...] EDT) LIPASE 26 16 - 63 U/L [facility] Blood 12/12/2023 9:13 AM EDT 12/12/2023 9:16 AM EDT us Juana ASHER LAB BLOOD ORDERABLES Final Result Performing Organization Address City/State/[facility] Co de Phone Number [address] [address] * (ABNORMAL) Comprehensive metabolic panel (12/12/2023 9:13 AM EDT) SODIUM 138 133 - 146 mmol/L [facility] POTASSIUM 4.1 3.3 - 5.1 mmol/L [facility] CHLORIDE 100 96 - 108 mmol/L [facility] CO2 29 21 - 35 mmol/L [facility] BUN 10 6 - 19 mg/dL [facility] CREATININE 0.80 0.5 - 1.5 mg/dL [facility] GLUCOSE 103(H) 70 - 99 mg/dL [facility] ALBUMIN 4.2 3.9 - 4.8 g/dL [facility] TOTAL PROTEIN 7.6 6.5 - 8.0 g/dL [facility] CALCIUM 9.2 8.4 - 10.3 mg/dL [facility] ALKALINE PHOSPHATASE 88 39 - 117 U/L [facility] TOTAL BILIRUBIN 0.5 0.0 - 1.2 mg/dL [facility] AST 27 0 - 37 U/L [facility] ALT 17 0 - 40 U/L [facility] GLOBULIN 3.4 1 - 4.8 g/dL [facility] EGFR 77 >59 mL/min/1.7 3m2 [facility] Comment:Estimated glomerular filtration rate calculated using the CKD-EPI refit equation. ANION GAP 13 10 - 20 mmol/L [facility] Blood 12/12/2023 9:13 AM EDT 12/12/2023 9:16 AM EDT us Juana ASHER LAB BLOOD ORDERABLES Final Result [facility] [address] [place] [address] * CBC and differential (12/12/2023 9:13 AM EDT) WBC 4.65 4.00 - 11.00 K/uL [facility] RBC 4.84 3.72 - 5.30 M/uL [facility] HGB 13.7 11.4 - 15.9 g/dL [facility] HCT 42.0 34.2 - 46.8 % [facility] PLT 254 140 - 430 K/uL [facility] MCV 86.8 78.0 - 97.0 fL [facility] MCH 28.3 25.0 - 33.0 pg [facility] MCHC 32.6 32.0 - 36.0 g/dL [facility] RDW 12.4 11.0 - 16.0 % [facility] MPV 9.7 8.4 - 12.8 fl [facility] DIFF METHOD Auto [facility] NEUTS 48.3 43.0 - 75.0 % [facility] LYMPHS 35.9 18.2 - 47.4 % [facility] MONOS 10.8 4.00 - 11.00 % [facility] EOS 3.9 0.0 - 8.0 % [facility] BASOS 0.9 0.0 - 2.0 % [facility] Granulocytes, immature (%) 0.2 0.0 - 0.9 % [facility] ABSOLUTE NEUTS 2.25 1.80 - 7.70 K/uL [facility] ABSOLUTE LYMPHS 1.67 1.00 - 3.10 K/uL [facility] ABSOLUTE MONOS 0.50 0.20 - 0.80 K/uL [facility] ABSOLUTE EOS 0.18 0.00 - 0.80 K/uL [facility] ABSOLUTE BASOS 0.04 0.00 - 0.09 K/uL [facility] Granulocytes, immature 0.01 0.00 - 0.05 K/uL [facility] Blood 12/12/2023 9:13 AM EDT 12/12/2023 9:16 AM EDT us Juana ASHER LAB BLOOD ORDERABLES Final Result [facility] [address] [place] [address] documented in this encounter Visit Diagnoses Diagnosis Diarrhea, unspecified type- Primary documented in this encounter Care Teams Condenser Winder Relationship Specialty Start Date End Date Orion Vaca MD [address] [address] PCP - General 07/05/17 Vidhi Lutz MD 22 [facility], [address] [place] [address] [email or web address] Historical LMR Provider 07/07/17 documented as of this encounter Additional Source Comments The information contained in this document represents components of the legal health record. It is not the complete legal health record.[facility]
--- OUTSIDE RECORDS SUMMARY | 2025-06-02 12:58 | XMS_ITS | Encounter Summary ---
Author Organization [facility] Address [address] [place] [address] Phone Care Team Providers Care Classification Officer Name Role Phone Orion Vaca MD Primary Care Provider [phone] Vidhi Lutz MD Unavailable [phone] Orion Vaca MD Unavailable [phone] Encounter Details Date Type Department Care Team (Latest Contact Info) Description 07/13/2020 Transcribe Orders Virtual Department 30 [place] [address] Catarino Figueroa MD [address] [place] [id number] [email or web address] Encounter for laboratory testing for COVID-19 virus [...] 2:40 PM EDT) Specimen Source NASOPHARYNGEAL SWAB (DATA PROCESSING MECHANIC) [facility] COVID-19 Comment [id number] [facility] COVID Testing Status Sent to [facility] Symptomatic? NO [facility] Other 07/16/2020 2:40 PM EDT 07/16/2020 2:42 PM EDT Catarino Figueroa MD BODY FLUIDS AND STOOLS ORD ERABLES Final Result [facility] [address] [place] [address] documented in this encounter Visit Diagnoses Diagnosis Encounter for laboratory testing for COVID-19 virus- Primary documented in this encounter Care Teams Classification Officer Relationship Specialty Start Date End Date Orion Vaca MD [address] [address] PCP - General 07/05/17 Vidhi Lutz MD 22 [facility], [facility] [address] [place] [address] [email or web address] Historical LMR Provider 07/07/17 Orion Vaca MD [address] [address] Historical LMR Provider 07/07/17 2 documented as of this encounter Additional Source Comments The information contained in this document represents components of the legal health record. It is not the complete legal health record.[facility]
--- OUTSIDE RECORDS SUMMARY | 2025-06-02 12:58 | XMS_ITS | Encounter Summary ---
Author Organization [facility] Address [address] [place] [address] Phone Care Team Providers Care Food Writer Name Role Phone Orion Vaca MD Primary Care Provider [phone] Vidhi Lutz MD Unavailable [phone] Encounter Details Date Type Department Care Team (Latest Contact Info) Description 03/02/2025 Transcribe Orders [facility] [address] [phone] Juana Kruse PA [address] [place] [address] Slow transit constipation (Primary Dx); Abdominal pain, [...] EDT) IRON 73 30 - 160 ug/dL [facility] IRON BINDING CAPACITY 285 228 - 428 ug/dL [facility] TRANSFERRIN SATURAT. 26 15 - 50 % [facility] Blood 03/16/2025 2:51 PM EDT 03/16/2025 2:56 PM EDT us Juana ASHER LAB BLOOD ORDERABLES Final Result Performing Organization Address City/State/[facility] Co de Phone Number [facility] [address] [place], [place] [phone] * CBC (03/16/2025 2:51 PM EDT) WBC 4.21 4.00 - 11.00 K/uL [facility] RBC 4.12 4.00 - 5.20 M/uL [facility] HGB 12.2 12.0 - 16.0 g/dL [facility] HCT 37.5 36.0 - 46.0 % [facility] PLT 190 150 - 450 K/uL [facility] MCV 91.0 80.0 - 100.0 fL [facility] MCH 29.6 27.0 - 31.0 pg [facility] MCHC 32.5 32.0 - 36.0 g/dL [facility] RDW 12.9 11.5 - 14.5 % [facility] MPV 10.7 8.4 - 12.0 fL [facility] NRBC 0.00 0.00 /100 WBCs [facility] ABSOLUTE NRBC 0.00 0.00 K/uL [facility] Blood 03/16/2025 2:51 PM EDT 03/16/2025 2:56 PM EDT Juana ASHER LAB BLOOD ORDERABLES Final Result Performing Organization Address [facility]/ZIP Co de Phone Number [address] [address] * (ABNORMAL) Immunoglobulin A (03/16/2025 2:51 PM EDT) IgA 426(H) 70 - 400 mg/dL [facility] Blood 03/16/2025 2:51 PM EDT 03/16/2025 2:56 PM EDT Juana ASHER LAB BLOOD ORDERABLES Final Result Performing Organization Address [facility]/ZIP Co de Phone Number [address] [address] * Tissue transglutaminase IgA (03/16/2025 2:51 PM EDT) TTG IGA ANTIBODY <1.2 <4.0 (Negative) U/mL [facility] [address] Blood 03/16/2025 2:51 PM EDT 03/16/2025 2:57 PM EDT Juana ASHER LAB BLOOD ORDERABLES Final Result Performing Organization Address [facility]/ZIP Co de Phone Number [facility]PATH [address] [place] [address] documented in this encounter Visit Diagnoses Diagnosis Slow transit constipation- Primary Abdominal pain, right upper quadrant documented in this encounter Care Teams Food Writer Relationship Specialty Start Date End Date Orion Vaca MD [address] [place] [address] PCP - General 07/05/17 Vidhi Lutz MD 22 [facility], [facility] 203 [place] [address] [email or web address] Historical LMR Provider 07/07/17 documented as of this encounter Additional Source Comments The information contained in this document represents components of the legal health record. It is not the complete legal health record.[facility]
--- OUTSIDE RECORDS SUMMARY | 2025-06-02 12:58 | XMS_ITS | Encounter Summary ---
Author Organization [facility] Address [address] [place] [address] Phone Care Team Providers Care Cable Installation Manager Name Role Phone Orion Vaca MD Primary Care Provider [phone] Vidhi Lutz MD Unavailable Orion Vaca MD Unavailable [phone] Reason for Referral * Physical Therapy (Routine) - Closed Specialty Diagnoses / Procedures Referred By Remigio [email or web address] Referred To Contact Physical Therapy Diagnoses Encounter for rehabilitation M62.89 Pelvic Floor Instability Procedures evaluate & treat Juana Kruse PA Phone: tel: fax: [address] [address] Phone: tel: Referral ID Status Reason Start Date Expiration Date Visits Re quested Visits Authorized [id number] Closed 09/23/2021 09/16/2022 99 99 Encounter Details Date Type Department Care Team (Latest Contact Info) Description 06/27/2021 Transcribe Orders [facility] [place] [facility] [address] [place] [address] uJana Kruse PA 10 [place] [address] Encounter for rehabilitation (Primary Dx) Social History [...] Diagnoses Orde r Schedule Ambulatory referral to [facility] Physical Therapy Outpatient Referral Routine Encounter for rehabilitation Ordered: 06/27/2021 documented as of this encounter Visit Diagnoses Diagnosis Encounter for rehabilitation- Primary documented in this encounter Care Teams Cable Installation Manager Relationship Specialty Start Date End Date Orion Vaca MD [address] [place] [address] PCP - General 07/05/17 Vidhi Lutz MD 22 [facility], [address] [address] [email or web address] Historical LMR Provider 07/07/17 Orion Vaca MD [address] [place] [address] Historical LMR Provider 07/07/17 2 documented as of this encounter Additional Source Comments The information contained in this document represents components of the legal health record. It is not the complete legal health record.[facility]
--- OUTSIDE RECORDS SUMMARY | 2025-06-02 12:58 | XMS_ITS | Encounter Summary ---
Author Organization [facility] Address [address] [place] [address] Phone Care Team Providers Care Shellfish Grower Name Role Phone Orion Vaca MD Primary Care Provider [phone] Vidhi Lutz MD Unavailable [phone] Reason for Referral * MRI/CAT Scan - Closed Specialty Diagnoses / Procedures Referred By Remigio t Referred To Contact Radiology Diagnoses RLQ abdominal pain Procedures CT Abdomen/Pelvis Orion Vaca MD [address] [place] [address] Phone: tel: fax: Referral ID Status Reason Start Date Expiration Date Visits Re quested Visits Authorized [id number] Closed 07/02/2024 07/02/2025 1 1 Encounter Details Date Type Department Care Team (Latest Contact Info) Description 07/02/2024 Transcribe Orders Virtual Department [address] [place] [address] Orion Vaca MD [address] [address] RLQ abdominal pain (Primary Dx) Social History [...] quadrant documented in this encounter Care Teams Shellfish Grower Relationship Specialty Start Date End Date Orion Vaca MD [address] [place] [address] PCP - General 07/05/17 Vidhi Lutz MD 22 [facility], [facility] [address] [place] [address] [email or web address] Historical LMR Provider 07/07/17 documented as of this encounter Additional Source Comments The information contained in this document represents components of the legal health record. It is not the complete legal health record.[facility]
--- OUTSIDE RECORDS SUMMARY | 2025-06-02 12:58 | XMS_ITS | Encounter Summary ---
Author Organization [facility] Address [address] [place] [address] Phone Care Team Providers Care Head Still Operator Name Role Phone Orion Vaca MD Primary Care Provider [phone] Vidhi Lutz MD Unavailable [phone] Encounter Details Date Type Department Care Team (Latest Contact Info) Description 12/12/2023 Transcribe Orders Virtual Department [address] [place] [address] Juana Kruse PA [address] [place] [address] Lower abdominal pain (Primary Dx); Diarrhea, unspecified [...] type documented in this encounter Care Teams Head Still Operator Relationship Specialty Start Date End Date Orion Vaca MD [address] [place] [address] PCP - General 07/05/17 Vidhi Lutz MD [address] [place] [address] [address] [place] [address] [email or web address] Historical LMR Provider 07/07/17 documented as of this encounter Additional Source Comments The information contained in this document represents components of the legal health record. It is not the complete legal health record.[facility]
--- OUTSIDE RECORDS SUMMARY | 2025-06-02 12:58 | XMS_ITS | Encounter Summary ---
Author Organization [facility] Address [address] [place] [address] Phone Care Team Providers Care Oil Well Logger Name Role Phone Orion Vaca MD Primary Care Provider [phone] Vidhi Lutz MD Unavailable [phone] Orion Vaca MD Unavailable Reason for Referral * MRI/CAT Scan - Closed Specialty Diagnoses / Procedures Referred By Remigio macedo Referred To Contact Radiology Diagnoses Other allergic rhinitis Nasal congestion Procedures CT Face Khris Golden MD Phone: tel: fax: [email or web address] Referral ID Status Reason Start Date Expiration Date Visits Re quested Visits Authorized [id number] Closed 08/07/2017 08/07/2018 1 1 Encounter Details Date Type Department Care Team (Late st Contact Info) Description 08/07/2017 Ancillary Orders Virtual Department 30 [place] [address] Khris Golden MD 100 [facility], [address] [place] [address] [email or web address] Other allergic rhinitis; Nasal congestion Social History [...] disease. TOTAL CTDIvol: 21.6 mGy POS - [id number] Narrative 11/06/2017 10:39 AM EST COMPARISON: None. [...] disease. TOTAL CTDIvol: 21.6 mGy POS - [id number] us Khris Golden MD IMG CT HEAD/NECK Final R esult documented in this encounter Visit Diagnoses Diagnosis Other allergic rhinitis Nasal congestion Other diseases of nasal cavity and sinuses Other allergic rhinitis Nasal congestion Other diseases of nasal cavity and sinuses documented in this encounter Care Teams Oil Well Logger Relationship Specialty Start Date End Date Orion Vaca MD [address] [address] PCP - General 07/05/17 Vidhi Lutz MD 22 [facility], [address] [place] [address] [email or web address] Historical LMR Provider 07/07/17 Orion Vaca MD [address] [address] Historical LMR Provider 07/07/17 2 documented as of this encounter Additional Source Comments The information contained in this document represents components of the legal health record. It is not the complete legal health record.[facility]
--- OUTSIDE RECORDS SUMMARY | 2025-06-02 12:58 | XMS_ITS | Encounter Summary ---
Author Organization [facility] Address [address] [place] [address] Phone Care Team Providers Care Engineer Sergeant Name Role Phone Orion Vaca MD Primary Care Provider [phone] Vidhi Lutz MD Unavailable Orion Vaca MD Unavailable Encounter Details Date Type Department Care Team (Late st Contact Info) Description 07/17/2019 Procedure Pass [facility] Endoscopy Admitting Dept Virtual Department [address] [place] [address] Social History Tobacco Use Types Packs/Day Years [...] on filedocumented in this encounter Care Teams Engineer Sergeant Relationship Specialty Start Date End Date Orion Vaca MD [address] [place] [address] PCP - General 07/05/17 Vidhi Lutz MD [address] [place] [address], [facility] [address] [place] [address] [email or web address] Historical LMR Provider 07/07/17 Orion Vaca MD [address] [place] [address] Historical LMR Provider 07/07/17 2 documented as of this encounter Additional Source Comments The information contained in this document represents components of the legal health record. It is not the complete legal health record.[facility]
--- OUTSIDE RECORDS SUMMARY | 2025-06-02 12:58 | XMS_ITS | Encounter Summary ---
Author Organization [facility] Address [address] [place] [address] Phone Care Team Providers Care Can Machine Operator Name Role Phone Orion Vaca MD Primary Care Provider [phone] Vidhi Lutz MD Unavailable [phone] Encounter Details Date Type Department Care Team (Latest Contact Info) Description 07/18/2024 Transcribe Orders [facility] Laboratory [address] [place], [place] [id number] Catarino Figueroa MD [address] [facility] 2 [place] [address] [email or web address] Weight loss (Primary Dx); Constipation, unspecified constipation [...] EDT) SODIUM 134 133 - 146 mmol/L [facility] POTASSIUM 3.8 3.3 - 5.1 mmol/L [facility] CHLORIDE 99 96 - 108 mmol/L [facility] CO2 25 21 - 35 mmol/L [facility] BUN 13 6 - 19 mg/dL [facility] CREATININE 0.80 0.5 - 1.5 mg/dL [facility] GLUCOSE 90 70 - 99 mg/dL [facility] ALBUMIN 3.6(L) 3.9 - 4.8 g/dL [facility] TOTAL PROTEIN 6.5 6.5 - 8.0 g/dL [facility] CALCIUM 8.2(L) 8.4 - 10.3 mg/dL [facility] ALKALINE PHOSPHATASE 50 39 - 117 U/L [facility] TOTAL BILIRUBIN 0.7 0.0 - 1.2 mg/dL [facility] AST 20 0 - 37 U/L [facility] ALT 13 0 - 40 U/L [facility] GLOBULIN 2.9 1 - 4.8 g/dL [facility] EGFR 77 >59 mL/min/1.7 3m2 [facility] Comment:Estimated glomerular filtration rate calculated using the CKD-EPI refit equation. ANION GAP 14 10 - 20 mmol/L [facility] Blood 07/18/2024 9:52 AM EDT 07/18/2024 10:04 AM EDT Catarino Figueroa MD LAB BLOOD ORDERABLES Final Result Performing Organization Address City/[facility]/ZIP Co de Phone Number [address] [address] * CBC (07/18/2024 9:52 AM EDT) WBC 6.40 4.00 - 11.00 K/uL [facility] RBC 4.35 4.00 - 5.20 M/uL [facility] HGB 12.7 12.0 - 16.0 g/dL [facility] HCT 37.9 36.0 - 46.0 % [facility] PLT 202 150 - 450 K/uL [facility] MCV 87.1 80.0 - 100.0 fL [facility] MCH 29.2 27.0 - 31.0 pg [facility] MCHC 33.5 32.0 - 36.0 g/dL [facility] RDW 12.8 11.5 - 14.5 % [facility] MPV 10.2 8.4 - 12.0 fL [facility] NRBC 0.00 0.00 /100 WBCs [facility] ABSOLUTE NRBC 0.00 0.00 K/uL [facility] Blood 07/18/2024 9:52 AM EDT 07/18/2024 10:04 AM EDT us Catarino Figueroa MD LAB BLOOD ORDERABLES Final Result [address] [address] * Immunoglobulin A (07/18/2024 9:52 AM EDT) IgA 390 70 - 400 mg/dL [facility] Blood 07/18/2024 9:52 AM EDT 07/18/2024 10:04 AM EDT us Catarino Figueroa MD LAB BLOOD ORDERABLES Final Result [facility] [address] [place] [address] * Tissue transglutaminase IgA (07/18/2024 9:52 AM EDT) TTG IGA ANTIBODY <1.2 <4.0 (Negative) U/mL [facility] Blood 07/18/2024 9:52 AM EDT 07/18/2024 10:04 AM EDT Catarino Figueroa MD LAB BLOOD ORDERABLES Final Result [facility] [address] [place] [address] documented in this encounter Visit Diagnoses Diagnosis Weight loss- Primary Loss of weight Constipation, unspecified constipation type documented in this encounter Care Teams Can Machine Operator Relationship Specialty Start Date End Date Orion Vaca MD [address] [place] [address] PCP - General 07/05/17 Vidhi Lutz MD 22 [facility] [address] [place] [address] [email or web address] Historical LMR Provider 07/07/17 documented as of this encounter Additional Source Comments The information contained in this document represents components of the legal health record. It is not the complete legal health record.[facility]
--- OUTSIDE RECORDS SUMMARY | 2025-06-02 12:58 | XMS_ITS | Clinical Summary ---
Author Organization [facility] Address [address] [place] [address] Phone Care Team Providers Care Azure Architect Name Role Phone Halina South MD Primary Care Provider [phone] Vidhi Lutz MD Unavailable [phone] Allergies Active Allergy Reactions Criticality Noted Date [...] - 03/16/2025 11:59 PM EDT Hospital Encounter [facility] [address] [place] [address] Juana Kruse PA Discharge Disposition: Home or Self Care 03/04/2025 3:11 PM EDT - 03/04/2025 11:59 PM EDT Hospital Encounter [facility] [address] [address] Juana Kruse PA Discharge Disposition: Home or Self Care 03/02/2025 2:46 PM EDT - 03/02/2025 11:59 PM EDT Hospital Encounter [facility] [address] [address] Juana Kruse PA Discharge Disposition: Home or Self Care 03/02/2025 Transcribe Orders [facility] [address] [address] Juana Kruse PA Slow transit constipation (Primary Dx); Abdominal pain, right upper quadrant 03/02/2025 Transcribe Orders [facility] [address] [address] Juana Kruse PA Slow transit constipation (Primary [...] EDT) IRON 73 30 - 160 ug/dL [facility] IRON BINDING CAPACITY 285 228 - 428 ug/dL [facility] TRANSFERRIN SATURAT. 26 15 - 50 % [facility] Blood 03/16/2025 2:51 PM EDT 03/16/2025 2:56 PM EDT Juana ASHER LAB BLOOD ORDERABLES Final Result Performing Organization Address City/[facility]/ZIP Co de Phone Number [facility] [address] [place] [address] * Tissue transglutaminase IgA (03/16/2025 2:51 PM EDT) [facility] TTG IGA ANTIBODY <1.2 <4.0 (Negative) U/mL [facility] Blood 03/16/2025 2:51 PM EDT 03/16/2025 2:57 PM EDT Juana ASHER LAB BLOOD ORDERABLES Final Result Performing Organization Address City/[facility]/ZIP Co de Phone Number [facility] [address] [place] [address] * CBC (03/16/2025 2:51 PM EDT) [facility] WBC 4.21 4.00 - 11.00 K/uL [facility] RBC 4.12 4.00 - 5.20 M/uL [facility] HGB 12.2 12.0 - 16.0 g/dL [facility] HCT 37.5 36.0 - 46.0 % [facility] PLT 190 150 - 450 K/uL [facility] MCV 91.0 80.0 - 100.0 fL [facility] MCH 29.6 27.0 - 31.0 pg [facility] MCHC 32.5 32.0 - 36.0 g/dL [facility] RDW 12.9 11.5 - 14.5 % [facility] MPV 10.7 8.4 - 12.0 fL [facility] NRBC 0.00 0.00 /100 WBCs [facility] ABSOLUTE NRBC 0.00 0.00 K/uL [facility] Blood 03/16/2025 2:51 PM EDT 03/16/2025 2:56 PM EDT Juana ASHER LAB BLOOD ORDERABLES Final Result Performing Organization Address [facility] Co de Phone Number [address] [address] * (ABNORMAL) Immunoglobulin A (03/16/2025 2:51 PM EDT) IgA 426(H) 70 - 400 mg/dL [facility] Blood 03/16/2025 2:51 PM EDT 03/16/2025 2:56 PM EDT Juana ASHER LAB BLOOD ORDERABLES Final Result Performing Organization Address [facility] de Phone Number [address] [address] * Fecal immunochemical test x1 (FIT) (03/04/2025 1:50 PM EDT) Immuno Fecal Occult Negative Negative [facility] Stool (Stool) 03/04/2025 1:5 0 PM EDT 03/04/2025 3:13 PM EDT Juana ASHER BODY FLUIDS AND STOOLS ORDE RABLES Final Result Performing Organization Address [facility] Co de Phone Number [address] [address] * ENDOSCOPY, COLON (01/17/2024 8:38 AM EDT) Narrative Transcriptions Arnoldo Figueroa MD - 01/17/2024 8:38 AM EDT [facility] Patient Name: Rafaela Oh Attending MD:: ARNOLDO FIGUEROA MD, Procedure Date: 01/17/2024 8:38 AM Date of : 1950 Age: 73 Admit Type: Outpatient Gender: Female Room: [place] [address] Referring MD: HALINA SOUTH Exam Type: Colonoscopy [...] monitored continuously. The Olympus adult variable colonoscope [id number] #2 was introduced through the anus and [...] 8:38 AM Procedure Code(s): --- Professional --- 68264, Colonoscopy, flexible; with removal of tumor(s), polyp(s), or other lesion(s) by snare technique --- Technical --- 74266, Colonoscopy, flexible; with removal of tumor(s), polyp(s), [...] congenital malformations of intestine CPT copyright 2021 [employer]. All rights reserved. The codes documented in this report are preliminary and upon senior materials planner reviewmay be revised to meet current compliance requirements. Procedure Date: 01/17/2024 8:38:[address] [place] [address] [place] Halina South MD GI PROCEDURE ORDERABLES F inal Result * TSH (07/04/2019 11:30 AM EDT) TSH 1.15 0.27 - 4.20 uIU/mL [facility] Blood 07/04/2019 11:3 0 AM EDT 07/04/2019 11:47 AM EDT us Juana ASHER LAB BLOOD ORDERABLES Final Result [facility] [address] [place] [address] from Last 3 Months or Most Recently Relevant to Health Maintenance Insurance MEDICARE PART A & B [facility] MEDICARE SUPPLEMENT MEDICARE PART A & B [employer] FOR [employer] MEDICARE SUPPLEMENT [facility] Address: [address] [address] MEDICARE PART A & B FOR LIFE MEDICARE SUPPLEMENT [facility] Address: [address] [address] MEDICARE PART A & B [employer] MEDICARE SUPPLEMENT [facility] Address: [address] [address] MEDICARE PART A & B [employer] MEDICARE SUPPLEMENT [facility] Address: [address] [address] MEDICARE PART A & B [facility] MEDICARE SUPPLEMENT [facility] Address: [address] [address] MEDICARE PART A & B FOR LIFE MEDICARE SUPPLEMENT [facility] Address: [address] [place] [phone] MEDICARE PART A & B FOR LIFE MEDICARE SUPPLEMENT [facility] Address: [address] [place] [phone] MEDICARE PART A & B FOR LIFE MEDICARE SUPPLEMENT Care Teams Azure Architect Relationship Specialty Start Date End Date Halina South MD [address] [place] [address] PCP - General 07/05/17 Vidhi Lutz MD [address] [place] [address], [facility] [address] [place] [address] [email or web address] Historical LMR Provider 07/07/17 Additional Source Comments The information contained in this document represents components of the legal health record. It is not the complete legal health record.[facility]
--- OUTSIDE RECORDS SUMMARY | 2025-06-02 12:58 | XMS_ITS | Encounter Summary ---
Author Organization [employer] Replaced By [facility] Address [address] [place] [address] Phone Care Team Providers Care Commercial Front Load Operator Name Role Phone Orion Vaca MD Primary Care Provider [phone] Vidhi Lutz MD Unavailable [phone] Encounter Details Date Type Department Care Team (Late st Contact Info) Description 07/02/2024 Procedure Pass [facility], Ct Scan - [address] [address] Social History Tobacco Use Types Packs/Day Years [...] on filedocumented in this encounter Care Teams Commercial Front Load Operator Relationship Specialty Start Date End Date Orion Vaca MD [address] [place] [address] PCP - General 07/05/17 Vidhi Lutz MD [address] [place] [address] [address] [place] [address] [email or web address] Historical LMR Provider 07/07/17 documented as of this encounter Additional Source Comments The information contained in this document represents components of the legal health record. It is not the complete legal health record.[facility]
--- OUTSIDE RECORDS SUMMARY | 2025-06-02 12:58 | XMS_ITS | Patient Health Record ---
Author Organization [facility] Address [address] [facility] [address] [place] [address] Care Team Providers Care Human Services Case Manager Name Role Phone Orion Vaca Primary Care Provider LULI Roberto Unavailable [phone] Allergies Allergen (clinical drug ingredient) Drug/Non Drug [...] Active Reason For Referral Reason Patient requests [facility] Physical Therapy- bilateral tarsal tunnel and peripheral neuropathy, needs help with balance and weakness. Please evaluate and treat. Diagnosis 1 Peripheral polyneuro jen (G62.9) Diagnosis 2 Tarsal tunnel syndro me, bilateral (G57.53) Referral Organization [facility] Referring Provider First Name LULI Referring Provider Last Name ELGIN Referring Provider Speciality Podiatry Referred Provider Specialty Physical The rapist General Notes Radha Guzman 11:11:17 AM > Faxed referral, and progress note 05/13/2025 to [facility] Physical Therapy [address] [place] [address] and phone number [phone]. Confirmation received fax scanned into chart. They will contact patient to schedule. 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) Peripheral polyneuropathy (G62.9) Active confirmed Vital Signs Heart Rate 73 /min 05/13/2025 Temperature 97.0 degrees Fahrenheit 05/13/2025 Respiratory Rate 16 /min 05/13/2025 Height 5ft 5in in 05/13/2025 Weight 135.1 lbs 05/13/2025 BMI 22.48 kg/m2 05/13/2025 Encounters Encounter Location Date Provider Diagnosis [facility] [address] [facility] [address] [place] [address] 05/13/2025 LULI EISENBERG Peripheral polyneuropathy G62.9 ; Tarsal tunnel syndrome, bilateral G57.53 ; Pain in right foot M79.671 ; Pain in left foot M79.672 and Dorsiflexed first ray, unspecified laterality M21.279 [facility] [address] 02/11/2025 LULI EISENBREG [facility] [address] [address] 03/11/[address] [facility] [address] [address] 03/11/2025 [facility] Assessments Encounter Date Diagnosis (ICD Code) Assessment [...] concern. I will place a referral to [facility] PT per the patient's request. I [...] of [place] [address] [place] [address] [id number] AltheaBrian diehla Self - patient is the insured FOR LIFE [address] [place] [address] [id number] AltheaRafaela diehl Self - patient is the insured Medical (General) History Medical History History ICD Code Raynaud's Syndrome Osteoarthritis hands Sicca syndrome Carpal tunnel syndrome Hypothyroidism Hashimotos Anxiety IBS Non ulcerative dyspepsia Stomach bezoar Visceral hypersensitivity Allergies Thyroid cancer Genital herpes Scarlet fever Cardiac murmur BMD with Dr Ruffin + COVID 2021 COVID vaccinated X 6 ([employer]) Surgical History Surgery Date(Month/Year) appendectomy tonsillectomy x3 cholecystectomy thyroidectomy hysterectomy BSO right knee meniscal injury Hospitalization History Reason Date(Month/Year) hysterectomy BSO thyroidectomy cholecystectomy tonsillectomy appendectomy (girl) 1982 (girl) 1972 (boy) 1970
== END 2025-06-02 11:19 | disposition home or self-care (01) ==
LOC: HO.HSMS 10:01
PROVIDERS: PCP Internal Medicine; Visit Provider Nurse Practitioner Family
DX: R20.2 Paresthesia of skin (principal); G57.53 Tarsal tunnel syndrome, bilateral lower limbs; G62.9 Polyneuropathy, unspecified; G56.03 Carpal tunnel syndrome, bilateral upper limbs; G47.9 Sleep disorder, unspecified; R51.9 Headache, unspecified; R26.9 Unspecified abnormalities of gait and mobility; H93.13 Tinnitus, bilateral; R06.83 Snoring; G47.19 Other hypersomnia
CPT/HCPCS: 99214

== ENCOUNTER → 2025-06-02 10:00 | Outpatient (BNVA) | payer MEDICARE, OTHER, SELFPAY | PROVIDERS: PCP Internal Medicine; Visit Provider Nurse Practitioner Family | DX: G57.53 Tarsal tunnel syndrome, bilateral lower limbs (principal); R20.2 Paresthesia of skin; G62.9 Polyneuropathy, unspecified; G56.03 Carpal tunnel syndrome, bilateral upper limbs; R51.9 Headache, unspecified; R26.9 Unspecified abnormalities of gait and mobility; H93.13 Tinnitus, bilateral; R06.83 Snoring; G47.19 Other hypersomnia | CPT/HCPCS: 99212 ==

== ENCOUNTER 2025-06-18 10:21 | Outpatient (REF) | payer MEDICARE, OTHER, SELFPAY ==
--- OUTSIDE RECORDS SUMMARY | 2025-03-16 04:30 | XMS_ITS ---
Author Organization [facility] Address [address] [facility] [address] [place] [address] Care Team Providers Care Backup Engineer Name Role Phone Orion Vaca Primary Care Provider LULI Roberto Unavailable [phone] Allergies Allergen (clinical drug ingredient) Drug/Non Drug [...] 03/16/2025 Encounters Encounter Location Date Provider Diagnosis [facility] [address] [facility] [address] [place] [address] 03/16/2025 LULI WILLIS Plan Of Treatment No Information Progress Notes * Anat AHUMADAB: 9 (74 yo F)Acc No.[id number]:03/16/2025 Consult note Patient: Rafaela FLYNN Provider: Jefry Willis DPM :1950 A ge:74 Y S ex:Female Date:03/16/2025 Phone: Address:[address] [place] [address] MARISA JIMENEZ, [id number] Pcp:Orion Vaca Subjective: * Chief Complaints: * [...] * Procedure Codes: * Electronic signature of Xiomy TREJOPRaffaele on 06/18/2025 at 11:50 AM EDT Sign off status: Pending * Provider: Jefry Willis DPM Date: 0 03/16/2025 Generated for Renzo salgado/Catrachito/Stan on: 11:50 AM EDT
--- NOTE | ~2025-06-18 | MR_ITS ---
EXAMINATION: MR BRAIN WITHOUT CONTRAST CLINICAL INFORMATION: Unspecified abnormalities of gait and mobility. R26.9 COMPARISON: None available. TECHNIQUE: MRI of the brain was obtained using routine sequences without contrast. FINDINGS: Patient's motion artifact. No restricted diffusion. No acute intracranial hemorrhage, mass effect, midline shift, hydrocephalus or herniation. No susceptibility signal abnormality in the substantia nigra. Overton-white matter differentiation is normal. Nonspecific hyperintense T2 FLAIR signal foci within the deep white matter right frontal lobe. Flow-void signal within the main cerebral vessels is normal. Posterior cranial fossa contents demonstrated no signal abnormality or mass effect. There is normal position of the cerebellar tonsils. Sellar/suprasellar region demonstrated no signal abnormality or gross masses. There is a focal, 10 mm intrinsic hyperintense T1 signal within the left sphenoid sinus. Paramagnetic field distortion with fat saturation artifact probably secondary to shimming/chemical shift left maxillary facial region. MR/MR head/brain wo con IMPRESSION: No acute stroke/nonhemorrhagic ischemia or acute brain abnormality. Nonspecific right frontal white matter T2 FLAIR signal foci. 10 mm polypoid signal, left sphenoid sinus. Electronically signed by: Sean Pineda MD 06/18/2025 11:13 AM EDT
--- OUTSIDE RECORDS SUMMARY | 2025-06-18 11:49 | XMS_ITS | Encounter Summary ---
Author Organization [facility] Address [address] [place] [address] Phone Care Team Providers Care Sap Abap Programmer Name Role Phone Orion Vaca MD Primary Care Provider [phone] Vidhi Lutz MD Unavailable [phone] Orion Vaca MD Unavailable [phone] Encounter Details Date Type Department Care Team (Late st Contact Info) Description 10/06/2017 Procedure Pass [facility], Ct Scan - [address] [address] Social History Tobacco Use Types Packs/Day Years [...] as of this encounter Plan of Treatment Upcoming Encounters Date Type Department Care Team (Late st Contact Info) Description 08/03/2025 9:15 AM EST Office Visit [facility] 10 [place], [place] [id number] Unknown, Unknown, Juana Peter, PAKalpanaC [address] [phone] [email or web address] documented as of this encounter Visit Diagnoses Not on filedocumented in this encounter Care Teams Sap Abap Programmer Relationship Specialty Start Date End Date Orion Vaca MD [address] [address] PCP - General 07/05/17 Vidhi Lutz MD [address] [place] [address], [address] [place] [address] [email or web address] Historical LMR Provider 07/07/17 Orion Vaca MD [address] [address] Historical LMR Provider 07/07/17 2 documented as of this encounter Additional Source Comments The information contained in this document represents components of the legal health record. It is not the complete legal health record.[facility]
--- OUTSIDE RECORDS SUMMARY | 2025-06-18 11:49 | XMS_ITS | Encounter Summary ---
Author Organization [facility] Address [address] [place] [address] Phone Care Team Providers Care Architectural Inspector Name Role Phone Orion Vaca MD Primary Care Provider [phone] Vidhi Lutz MD Unavailable [phone] Orion Vaca MD Unavailable [phone] Encounter Details Date Type Department Care Team (Latest Contact Info) Description 09/25/2017 Transcribe Orders [facility] [address] [address] Juana Kruse PA 10 [place] [address] Blood loss anemia (Primary Dx); Reflux esophagitis [...] Description 08/03/2025 9:15 AM EST Office Visit [facility] 10 [place] [address] Unknown, Unknown, Juana Peter PA-C [address] [address] [email or web address] documented as of this encounter Results * Vitamin A (09/25/2017 2:16 PM EST) VITAMIN A 56.5 32.5 - 78.0 mcg/dL [facility] Comment: (NOTE) ADDITIONAL INFORMATION This test was developed and its performance characteristics determined by [facility] in a manner consistent with CLIA requirements. This test has not been cleared or approved by the U.S. Food and Drug Administration. Blood 09/25/2017 2:16 PM EST 09/25/2017 2:28 PM EST Juana [facility] BLOOD ORDERABLES Final Result [facility] [address] [place] [address] * Vitamin K (09/25/2017 2:16 PM EST) VITAMIN K1 0.59 0.10 - 2.20 ng/mL [facility] Comment: (NOTE) ADDITIONAL INFORMATION This test was developed and its performance characteristics determined by [facility] in a manner consistent with CLIA requirements. This test has not been cleared or approved by the U.S. Food and Drug Administration. Blood 09/25/2017 2:16 PM EST 09/25/2017 2:28 PM EST Juana [facility] BLOOD ORDERABLES Final Result Performing Organization Address [facility] de Phone Number [facility] [address] [place] [address] * Vitamin E (09/25/2017 2:16 PM EST) [facility] VIT E, A-TOCOPHEROL 16.1 5.5 - 17.0 mg/L [facility] Comment: (NOTE) ADDITIONAL INFORMATION This test was developed and its performance characteristics determined by [facility] in a manner consistent with CLIA requirements. This test has not been cleared or approved by the U.S. Food and Drug Administration. Blood 09/25/2017 2:16 PM EST 09/25/2017 2:28 PM EST Juana [facility] BLOOD ORDERABLES Final Result Performing Organization Address [facility] Phone Number [facility] [place] [address] * Tissue transglutaminase IgA (09/25/2017 2:16 PM EST) [facility] TTG IGA ANTIBODY <1.2 <4.0 (Negative) U/mL [facility] DPT OF LAB MED AND PAT+ Blood 09/25/2017 2:16 PM EST 09/25/2017 2:28 PM EST Juana [facility] BLOOD ORDERABLES Final Result Performing Organization Address City/[facility] [[email or web address]] Co de Phone Number [facility] DPT OF LAB MED AND PAT+ [address] [place] [address] * Immunoglobulin A (09/25/2017 2:16 PM EST) [facility] IgA 371 70 - 400 mg/dL [facility] Blood 09/25/2017 2:16 PM EST 09/25/2017 2:28 PM EST Juana [facility] BLOOD ORDERABLES Final Result Performing Organization Address [facility] de Phone Number [address] [address] * Magnesium (09/25/2017 2:16 PM EST) Pathologist [facility] MAGNESIUM 2.3 1.6 - 2.6 mg/dL [facility] Blood 09/25/2017 2:16 PM EST 09/25/2017 2:28 PM EST Juana Monet Aixa [facility] BLOOD ORDERABLES Final Result Performing Organization Address [facility] de Phone Number [address] [address] * Zinc (09/25/2017 2:16 PM EST) [facility] ZINC 0.78 0.66 - 1.10 mcg/mL [facility] Comment: (NOTE) ADDITIONAL INFORMATION This test was developed and its performance characteristics determined by [facility] in a manner consistent with CLIA requirements. This test has not been cleared or approved by the U.S. Food and Drug Administration. Blood 09/25/2017 2:16 PM EST 09/25/2017 2:28 PM EST Juana [facility] BLOOD ORDERABLES Final Result Performing Organization Address [facility] [[email or web address]] Co de Phone Number [facility] [address] [place] [address] * 25-OH vitamin D (09/25/2017 2:16 PM EST) 25 OH VIT D (TOTAL) 41 30 - 1,000 ng/mL [facility] Blood 09/25/2017 2:16 PM EST 09/25/2017 2:28 PM EST Juana [facility] BLOOD ORDERABLES Final Result [address] [address] * (ABNORMAL) Vitamin B12 (09/25/2017 2:16 PM EST) VITAMIN B12 1,611(H) 243 - 894 pg/mL [facility] Blood 09/25/2017 2:16 PM EST 09/25/2017 2:28 PM EST us Juana [facility] BLOOD ORDERABLES Final Result Performing Organization Address [facility]/ZIP Co de Phone Number [address] [address] * (ABNORMAL) Folate (09/25/2017 2:16 PM EST) FOLIC ACID >20.0(H) 4.2 - 19.9 ng/mL [facility] Blood 09/25/2017 2:16 PM EST 09/25/2017 2:28 PM EST us Juana [facility] BLOOD ORDERABLES Final Result Performing Organization Address [facility]/ZIP Co de Phone Number [address] [address] * Ferritin (09/25/2017 2:16 PM EST) FERRITIN 94 13 - 150 ug/L [facility] Blood 09/25/2017 2:16 PM EST 09/25/2017 2:28 PM EST us Juana [facility] BLOOD ORDERABLES Final Result Performing Organization Address [facility]/ZIP Co de Phone Number [address] [address] * (ABNORMAL) Comprehensive metabolic panel (09/25/2017 2:16 PM EST) SODIUM 141 133 - 146 mmol/L [facility] POTASSIUM 4.4 3.3 - 5.1 mmol/L [facility] CHLORIDE 104 96 - 108 mmol/L [facility] CO2 27 21 - 35 mmol/L [facility] BUN 21(H) 6 - 19 mg/dL [facility] CREATININE 0.70 0.5 - 1.5 mg/dL [facility] GLUCOSE 90 70 - 99 mg/dL [facility] ALBUMIN 4.1 3.9 - 4.8 g/dL [facility] TOTAL PROTEIN 7.3 6.5 - 8.0 g/dL [facility] CALCIUM 8.8 8.4 - 10.3 mg/dL [facility] ALKALINE PHOSPHATASE 59 39 - 117 U/L [facility] TOTAL BILIRUBIN 0.3 0 - 1.2 mg/dL [facility] AST 22 0 - 37 U/L [facility] ALT 21 0 - 40 U/L [facility] GLOBULIN 3.2 1 - 4.8 g/dL [facility] EGFR >60 >60 mL/min/1.7 3m2 [facility] Comment:Abnormal if <60. If patient is -Libyan, multiply the result by 1.21. ANION GAP 14 10 - 20 mmol/L [facility] Blood 09/25/2017 2:16 PM EST 09/25/2017 2:28 PM EST us Juana [facility] BLOOD ORDERABLES Final Result Performing Organization Address City/State/[facility] [[email or web address]] Co de Phone Number [address] [address] * CBC and differential (09/25/2017 2:16 PM EST) WBC 5.98 3.40 - 11.20 K/uL [facility] RBC 4.51 3.80 - 4.80 M/uL [facility] HGB 13.2 12.0 - 15.0 g/dL [facility] HCT 39.3 36.0 - 46.0 % [facility] PLT 203 130 - 400 K/uL [facility] MCV 87.1 79.0 - 98.0 fL [facility] MCH 29.3 27.0 - 34.8 pg [facility] MCHC 33.6 31.5 - 36.0 g/dL [facility] RDW 12.9 10.8 - 14.6 % [facility] MPV 9.9 9.4 - 12.4 fl [facility] NRBC 0.00 /100 WBCs [facility] ABSOLUTE NRBC 0.00 K/uL [facility] DIFF METHOD Auto [facility] NEUTS 60.2 45.30 - 77.70 % [facility] LYMPHS 29.8 12.30 - 39.70 % [facility] MONOS 7.2 4.10 - 12.80 % [facility] EOS 1.8 0 - 7.2 % [facility] BASOS 0.7 0 - 2.80 % [facility] Granulocytes, immature (%) 0.3 0.0 - 0.9 % [facility] ABSOLUTE NEUTS 3.60 1.40 - 7.70 K/uL [facility] ABSOLUTE LYMPHS 1.78 0.60 - 3.20 K/uL [facility] ABSOLUTE MONOS 0.43 0.11 - 0.59 K/uL [facility] ABSOLUTE EOS 0.11 0.01 - 0.50 K/uL [facility] ABSOLUTE BASOS 0.04 0.00 - 0.08 K/uL [facility] Granulocytes, immature 0.02 0.00 - 0.05 K/uL [facility] Blood 09/25/2017 2:16 PM EST 09/25/2017 2:28 PM EST us Juana [facility] BLOOD ORDERABLES Final Result [facility] [address] [place] [address] documented in this encounter Visit Diagnoses Diagnosis Blood loss anemia- Primary Acute posthemorrhagic anemia Reflux esophagitis documented in this encounter Care Teams Architectural Inspector Relationship Specialty Start Date End Date Orion Vaca MD [address] [place] [address] PCP - General 07/05/17 Vidhi Lutz MD 22 [facility] [address] [place] [address] [email or web address] Historical LMR Provider 07/07/17 Orion Vaca MD [address] [place] [address] Historical LMR Provider 07/07/17 2 documented as of this encounter Additional Source Comments The information contained in this document represents components of the legal health record. It is not the complete legal health record.[facility]
--- OUTSIDE RECORDS SUMMARY | 2025-06-18 11:50 | XMS_ITS | Clinical Summary ---
Author Organization [facility] Address [address] [place] [address] Phone Care Team Providers Care Bilingual Middle School Teacher Name Role Phone Orion Vaca MD Primary Care Provider [phone] Allergies Active Allergy Reactions Criticality Noted Date [...] Health Maintenance Due Date Last Done Comments Colorectal Cancer Screening: Colonoscopy 1949 DTaP,Tdap,and Td Vaccines (1 - Tdap) 1968 Zoster Vaccines (1 of 2) 1968 Pneumococcal Vaccine: 50+ Years (2 of 2 - PCV20 or PCV21) 06/18/2019 06/18/2018 Cholesterol Screening (Lipid Panel) 08/15/2022 Falls Risk Assessment 08/15/2022 Hepatitis C Screening 08/15/2022 Medicare Annual Wellness Visit 08/15/2022 Osteoporosis Screening (Bone Density Screening) 08/15/2022 Social Influencers of Health Screening 08/15/2022 RSV Immunization Adult Patients (1 - 1-dose 75+ series) 2024 Depression Screening 09/17/2024 COVID-19 Vaccine (7 - Pfizer risk 2023- season) 2025 06/03/2024, 07/28/2022, 06/18/2022, Additional history [...] complete this topic Insurance MEDICARE Care Teams Bilingual Middle School Teacher Relationship Specialty Start Date End Date Orion Vaca MD [address] [place] [address] PCP - General Internal Medicine 10/09/12
--- OUTSIDE RECORDS SUMMARY | 2025-06-18 11:50 | XMS_ITS | Encounter Summary ---
Author Organization [facility] Address [address] [place] [address] Phone Care Team Providers Care Insulator Tester Name Role Phone Orion Vaca MD Primary Care Provider [phone] Vidhi Lutz MD Unavailable [phone] Orion Vaca MD Unavailable [phone] Encounter Details Date Type Department Care Team (Latest Contact Info) Description 07/13/2020 Transcribe Orders Virtual Department [address] [place] [address] Catarino Figueroa MD [address] [place] [phone] [email or web address] Encounter for laboratory testing for COVID-19 virus [...] Description 08/03/2025 9:15 AM EST Office Visit [facility] Gastro[facility]ology [facility] 10 [place] [address] Unknown, Unknown, Juana Peter PA-C [address] [address] [email or web address] documented as of this encounter Results * COVID-19 PCR Order (07/16/2020 2:40 PM EDT) Specimen Source NASOPHARYNGEAL SWAB (DOCTOR OF OPTOMETRY) [facility] COVID-19 Comment [id number] [facility] COVID Testing Status Sent to [facility] Symptomatic? NO [facility] Other 07/16/2020 2:40 PM EDT 07/16/2020 2:42 PM EDT Catarino Figueroa MD BODY FLUIDS AND STOOLS ORD ERABLES Final Result [facility] [address] [place] [address] documented in this encounter Visit Diagnoses Diagnosis Encounter for laboratory testing for COVID-19 virus- Primary documented in this encounter Care Teams Insulator Tester Relationship Specialty Start Date End Date Orion Vaca MD [address] [place] [address] PCP - General 07/05/17 Vidhi Lutz MD [address] [place] [address], [address] [place] [address] [email or web address] Historical LMR Provider 07/07/17 Orion Vaca MD [address] [address] Historical LMR Provider 07/07/17 2 documented as of this encounter Additional Source Comments The information contained in this document represents components of the legal health record. It is not the complete legal health record.[facility]
--- OUTSIDE RECORDS SUMMARY | 2025-06-18 11:50 | XMS_ITS | Patient Health Record ---
Author Organization [facility] Address [address] [facility] [address] [place] [address] Care Team Providers Care Casino Cage Supervisor Name Role Phone Orion Vaca Primary Care Provider LULI Roberto Unavailable [phone] Allergies Allergen (clinical drug ingredient) Drug/Non Drug [...] Active Reason For Referral Reason Patient requests [facility] Physical Therapy- bilateral tarsal tunnel and peripheral neuropathy, needs help with balance and weakness. Please evaluate and treat. Diagnosis 1 Peripheral polyneuro jen (G62.9) Diagnosis 2 Tarsal tunnel syndro me, bilateral (G57.53) Referral Organization [facility] Referring Provider First Name LULI Referring Provider Last Name ELGIN Referring Provider Speciality Podiatry Referred Provider Specialty Physical The rapist General Notes Radha Guzman 11:11:17 AM > Faxed referral, and progress note 05/13/2025 to [facility] Physical Therapy [address] [place] [address] and phone number [phone]. Confirmation received fax scanned into chart. They will contact patient to schedule. 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) Peripheral polyneuropathy (G62.9) Active confirmed Vital Signs Heart Rate 73 /min 05/13/2025 Temperature 97.0 degrees Fahrenheit 05/13/2025 Respiratory Rate 16 /min 05/13/2025 Height 5ft 5in in 05/13/2025 Weight 135.1 lbs 05/13/2025 BMI 22.48 kg/m2 05/13/2025 Encounters Encounter Location Date Provider Diagnosis [facility] [address] [facility] [address] [place] [address] 05/13/2025 LULI EISENBERG Peripheral polyneuropathy G62.9 ; Tarsal tunnel syndrome, bilateral G57.53 ; Pain in right foot M79.671 ; Pain in left foot M79.672 and Dorsiflexed first ray, unspecified laterality M21.279 [facility] [address] 02/11/2025 LULI EISENBERG [facility] [address] [address] 03/11/2025 [facility] [address] [address] 03/11/2025 [facility] Assessments Encounter Date Diagnosis (ICD Code) Assessment [...] concern. I will place a referral to [facility] PT per the patient's request. I [...] of [place] [address] [place] [address] [id number] AndesBrian diehla Self - patient is the insured FOR LIFE [address] [place] [address] [id number] AltheaRafaela diehl Self - patient is the insured Medical (General) History Medical History History ICD Code Raynaud's Syndrome Osteoarthritis hands Sicca syndrome Carpal tunnel syndrome Hypothyroidism Hashimotos Anxiety IBS Non ulcerative dyspepsia Stomach bezoar Visceral hypersensitivity Allergies Thyroid cancer Genital herpes Scarlet fever Cardiac murmur BMD with Dr Ruffin + COVID 2021 COVID vaccinated X 6 ([employer]) Surgical History Surgery Date(Month/Year) appendectomy tonsillectomy x3 cholecystectomy thyroidectomy hysterectomy BSO right knee meniscal injury Hospitalization History Reason Date(Month/Year) hysterectomy BSO thyroidectomy cholecystectomy tonsillectomy appendectomy (girl) 1982 (girl) 1972 (boy) 1970
--- OUTSIDE RECORDS SUMMARY | 2025-06-18 11:50 | XMS_ITS | Clinical Summary ---
Author Organization [facility] Address [address] [place], [place] [address] Care Team Providers Care Consumer Loan Specialist Name Role Phone Orion Vaca MD Primary [...] gram tablet 0 Active Tretinoin, Facial Wrinkles, ([place]) 0.02 % CREA Apply topically. 0 10/27/2011 [...] age to complete this topic Care Teams Consumer Loan Specialist Relationship Specialty Start Date End Date Orion Vaca MD PCP - General Internal Medicine 03/03/21
--- OUTSIDE RECORDS SUMMARY | 2025-06-18 11:50 | XMS_ITS | Encounter Summary ---
Author Organization [facility] Address [address] [place] [address] Phone Care Team Providers Care Roll Panner Name Role Phone Orion Vaca MD Primary Care Provider [phone] Vidhi Lutz MD Unavailable [phone] Orion Vaca MD Unavailable [phone] Encounter Details Date Type Department Care Team (Late st Contact Info) Description 08/07/2017 Procedure Pass [facility], Ct Scan - [address] [address] Social History Tobacco Use Types Packs/Day Years [...] Description 08/03/2025 9:15 AM EST Office Visit [facility] 10 [place], [place] [id number] Unknown, Unknown, Juana Peter, PAKalpanaC [address] [id number] [phone] [email or web address] documented as of this encounter Visit Diagnoses Not on filedocumented in this encounter Care Teams Roll Panner Relationship Specialty Start Date End Date Orion Vaca MD [address] [address] PCP - General 07/05/17 Vidhi Lutz MD [address] [place] [address], [address] [place] [address] [email or web address] Historical LMR Provider 07/07/17 Orion Vaca MD [address] [address] Historical LMR Provider 07/07/17 2 documented as of this encounter Additional Source Comments The information contained in this document represents components of the legal health record. It is not the complete legal health record.[facility]
--- OUTSIDE RECORDS SUMMARY | 2025-06-18 11:50 | XMS_ITS | Encounter Summary ---
Author Organization [facility] Address [address] [place] [address] Phone Care Team Providers Care Bioinformatics Software Engineer Name Role Phone Orion Vaca MD Primary Care Provider [phone] Vidhi Lutz MD Unavailable Orion Vaca MD Unavailable [phone] Encounter Details Date Type Department Care Team (Latest Contact Info) Description 06/11/2018 Transcribe Orders [facility] [address] [address] Juana Kruse PA 10 [place] [address] Intestinal malabsorption, unspecified type (Primary Dx); Iron [...] 9:15 AM EST Office Visit [facility] 10 [place] [address] Unknown, Unknown, Juana Peter PA-C [address] [address] [email or web address] documented as of this encounter Results * Magnesium (06/11/2018 10:45 AM EDT) [facility] MAGNESIUM 2.3 1.6 - 2.6 mg/dL [facility] Blood 06/11/2018 10:4 5 AM EDT 06/11/2018 10:51 AM EDT Juana ASHER LAB BLOOD ORDERABLES Final Result Performing Organization Address [facility] Co de Phone Number [address] [address] * Zinc (06/11/2018 10:45 AM EDT) [facility] ZINC 0.74 0.66 - 1.10 mcg/mL [facility] Comment: (NOTE) ADDITIONAL INFORMATION This test was developed and its performance characteristics determined by [facility] in a manner consistent with CLIA requirements. This test has not been cleared or approved by the U.S. Food and Drug Administration. Blood 06/11/2018 10:4 5 AM EDT 06/11/2018 10:50 AM EDT us Juana ASHER LAB BLOOD ORDERABLES Final Result Performing Organization Address [facility]/ZIP Co de Phone Number [facility] [address] [place] [address] * 25-OH vitamin D (06/11/2018 10:45 AM EDT) Pathologist [facility] 25 [place] VIT D (TOTAL) 39 30 - 60 ng/mL [facility] Blood 06/11/2018 10:4 5 AM EDT 06/11/2018 10:51 AM EDT us Juana ASHER LAB BLOOD ORDERABLES Final Result Performing Organization Address [facility] Co de Phone Number [address] [address] * (ABNORMAL) Vitamin B12 (06/11/2018 10:45 AM EDT) VITAMIN B12 1,602(H) 232 - 1,245 pg/mL [facility] Blood 06/11/2018 10:4 5 AM EDT 06/11/2018 10:51 AM EDT us Juana ASHER LAB BLOOD ORDERABLES Final Result Performing Organization Address [facility] Co de Phone Number [address] [address] * Ferritin (06/11/2018 10:45 AM EDT) FERRITIN 144 13 - 150 ug/L [facility] Blood 06/11/2018 10:4 5 AM EDT 06/11/2018 10:51 AM EDT us Juana ASHER LAB BLOOD ORDERABLES Final Result Performing Organization Address [facility] Co de Phone Number [address] [address] * Iron and iron binding capacity (06/11/2018 10:45 AM EDT) IRON 92 30 - 160 ug/dL [facility] IRON BINDING CAPACITY 260 228 - 428 ug/dL [facility] TRANSFERRIN SATURAT. 35 15 - 50 % [facility] Blood 06/11/2018 10:4 5 AM EDT 06/11/2018 10:51 AM EDT us Juana ASHER LAB BLOOD ORDERABLES Final Result Performing Organization Address [facility] Co de Phone Number [address] [address] * CBC (06/11/2018 10:45 AM EDT) WBC 4.72 3.40 - 11.20 K/uL [facility] RBC 4.28 3.80 - 4.80 M/uL [facility] HGB 12.7 12.0 - 15.0 g/dL [facility] HCT 38.4 36.0 - 46.0 % [facility] PLT 199 130 - 400 K/uL [facility] MCV 89.7 79.0 - 98.0 fL [facility] MCH 29.7 27.0 - 34.8 pg [facility] MCHC 33.1 31.5 - 36.0 g/dL [facility] RDW 12.5 10.8 - 14.6 % [facility] MPV 10.3 9.4 - 12.4 fl [facility] NRBC 0.00 /100 WBCs [facility] ABSOLUTE NRBC 0.00 K/uL [facility] Blood 06/11/2018 10:4 5 AM EDT 06/11/2018 10:51 AM EDT us Juana ASHER LAB BLOOD ORDERABLES Final Result Performing Organization Address City/[facility]/ZIP Co de Phone Number [address] [address] documented in this encounter Visit Diagnoses Diagnosis Intestinal malabsorption, unspecified type- Primary Iron deficiency anemia, unspecified iron deficiency anemia type documented in this encounter Care Teams Bioinformatics Software Engineer Relationship Specialty Start Date End Date Orion Vaca MD [address] [place] [address] PCP - General 07/05/17 Vidhi Lutz MD [address] [place] [address], [address] [place] [address] [email or web address] Historical LMR Provider 07/07/17 Orion Vaca MD [address] [place] [address] Historical LMR Provider 07/07/17 2 documented as of this encounter Additional Source Comments The information contained in this document represents components of the legal health record. It is not the complete legal health record.[facility]
--- OUTSIDE RECORDS SUMMARY | 2025-06-18 11:50 | XMS_ITS | Patient Health Record ---
Author [facility] Address [address] [facility] [place] [address] Care Team Providers Care Injection Molding Engineer Name Role Phone Orion Vaca MD Primary Care Provider UnavailPhylicia Pedraza Unavailable [phone] Allergies Allergen (clinical drug ingredient) Drug/Non Drug [...] Inc [address] [place] [address] [id number] Rafaela Oh Self - patient is the insured for Life [address] [place] [id number] [phone] [id number] Rafaela Oh Self - patient is the [...]
--- OUTSIDE RECORDS SUMMARY | 2025-06-18 11:50 | XMS_ITS | Encounter Summary ---
Author Organization [facility] Address [address] [place] [address] Phone Care Team Providers Care Photography Teacher Name Role Phone Orion Vaca MD Primary Care Provider [phone] Vidhi Lutz MD Unavailable [phone] Orion Vcaa MD Unavailable [phone] Encounter Details Date Type Department Care Team (Late st Contact Info) Description 06/03/2018 Procedure Pass [facility], Ct Scan - [address] [address] Social History Tobacco Use Types Packs/Day Years [...] Description 08/03/2025 9:15 AM EST Office Visit [facility] 10 [place], [place] [id number] Unknown, Unknown, Juana Peter, PAKalpanaC [address] [phone] [email or web address] documented as of this encounter Visit Diagnoses Not on filedocumented in this encounter Care Teams Photography Teacher Relationship Specialty Start Date End Date Orion Vaca MD [address] [address] PCP - General 07/05/17 Vidhi Lutz MD [address] [place] [address], [address] [place] [address] [email or web address] Historical LMR Provider 07/07/17 Orion Vaca MD [address] [address] Historical LMR Provider 07/07/17 2 documented as of this encounter Additional Source Comments The information contained in this document represents components of the legal health record. It is not the complete legal health record.[facility]
--- OUTSIDE RECORDS SUMMARY | 2025-06-18 11:50 | XMS_ITS | Encounter Summary ---
Author Organization [facility] Address [address] [place] [address] Phone Care Team Providers Care Driver Messenger Name Role Phone Orion Vaca MD Primary Care Provider [phone] Vidhi Lutz MD Unavailable [phone] Reason for Referral * MRI/CAT Scan - Closed Specialty Diagnoses / Procedures Referred By Remigio t Referred To Contact Radiology Diagnoses RLQ abdominal pain Procedures CT Abdomen/Pelvis Orion Vaca MD [address] [place] [address] Phone: tel: fax: Referral ID Status Reason Start Date Expiration Date Visits Re quested Visits Authorized [id number] Closed 07/02/2024 07/02/2025 1 1 Encounter Details Date Type Department Care Team (Latest Contact Info) Description 07/02/2024 Transcribe Orders Virtual Department [address] [place] [address] Orion Vaca MD [address] [address] RLQ abdominal pain (Primary Dx) Social History [...] Description 08/03/2025 9:15 AM EST Office Visit [facility] Clinic [address] [place] [address] Unknown, Unknown, Juana Peter PA-C [address] [place] [address] [email or web address] documented as of this encounter Results * [...] quadrant documented in this encounter Care Teams Driver Messenger Relationship Specialty Start Date End Date Orion Vaca MD [address] [place] [address] PCP - General 07/05/17 Vidhi Lutz MD [address] [facility], [address] [place] [address] [email or web address] Historical LMR Provider 07/07/17 documented as of this encounter Additional Source Comments The information contained in this document represents components of the legal health record. It is not the complete legal health record.[facility]
--- OUTSIDE RECORDS SUMMARY | 2025-06-18 11:50 | XMS_ITS | Encounter Summary ---
Author Organization [facility] Address [address] [place] [address] Phone Care Team Providers Care Duck Operator Name Role Phone Orion Vaca MD Primary Care Provider [phone] Vidhi Lutz MD Unavailable Orion Vaca MD Unavailable [phone] Encounter Details Date Type Department Care Team (Latest Contact Info) Description 08/22/2019 Transcribe Orders Virtual Department 30 [place] [address] Catarino Figueroa MD [address] [place] [phone] [email or web address] Right sided abdominal pain (Primary Dx); Gas [...] Upcoming Encounters Date Type Department Care Team ( Contact Info) Description 08/03/2025 9:15 AM EST Office Visit [facility] 10 [place] [address] Unknown, Unknown, Juana Peter PA-C [address] [address] [email or web address] documented as of this encounter Results * [...] suspiciousabnormality. POS - [facility] Catarino Figueroa MD IM US PELVIS Final Resu lt documented in this encounter Visit Diagnoses Diagnosis Right sided abdominal pain- Primary Abdominal pain, unspecified site Gas pain Flatulence, eructation, and gas pain Right sided abdominal pain Abdominal pain, unspecified site Gas pain Flatulence, eructation, and gas pain documented in this encounter Care Teams Duck Operator Relationship Specialty Start Date End Date Orion Vaca MD [address] [address] PCP - General 07/05/17 Vidhi Lutz MD [address] [place] [address], [facility] 203 [place] [address] [email or web address] Historical LMR Provider 07/07/17 Orion Vaca MD [address] [address] Historical LMR Provider 07/07/17 2 documented as of this encounter Additional Source Comments The information contained in this document represents components of the legal health record. It is not the complete legal health record.[facility]
--- OUTSIDE RECORDS SUMMARY | 2025-06-18 11:50 | XMS_ITS | Encounter Summary ---
Author Organization [facility] Address [address] [place] [address] Phone Care Team Providers Care Skin Former Name Role Phone Orion Vaca MD Primary Care Provider [phone] Vidhi Lutz MD Unavailable [phone] Encounter Details Date Type Department Care Team (Latest Contact Info) Description 12/12/2023 Transcribe Orders Virtual Department 30 [place] [address] Juana Kruse PA [address] [place] [address] Lower abdominal pain (Primary Dx); Diarrhea, unspecified [...] Upcoming Encounters Date Type Department Care Team ([facility] st Contact Info) Description 08/03/2025 9:15 AM EST Office Visit [facility] 10 [place] [address] Unknown, Unknown, Juana Peter PA-C [address] [address] [email or web address] documented as of this encounter Visit Diagnoses Diagnosis Lower abdominal pain- Primary Abdominal pain, other specified site Diarrhea, unspecified type documented in this encounter Care Teams Skin Former Relationship Specialty Start Date End Date Orion Vaca MD [address] [place] [address] PCP - General 07/05/17 Vidhi Lutz MD [address] [place] [address], [address] [place] [address] [email or web address] Historical LMR Provider 07/07/17 documented as of this encounter Additional Source Comments The information contained in this document represents components of the legal health record. It is not the complete legal health record.[facility]
--- OUTSIDE RECORDS SUMMARY | 2025-06-18 11:50 | XMS_ITS | Encounter Summary ---
Author Organization [facility] Address [address] [place] [address] Phone Care Team Providers Care Substance Addiction Coordinator Name Role Phone Orion Vaca MD Primary Care Provider [phone] Vidhi Lutz MD Unavailable [phone] Orion Vaca MD Unavailable [phone] Encounter Details Date Type Department Care Team (Late Contact Info) Description 07/17/2019 Procedure Pass [facility] Endoscopy Admitting Dept Virtual Department [address] [place] [address] Social History Tobacco Use Types Packs/Day Years [...] Encounters Date Type Department Care Team (Late Contact Info) Description 08/03/2025 9:15 AM EST Office Visit [facility] 10 [place] [address] Unknown, Unknown, Juana Peter, PAKalpanaC [address] [phone] [email or web address] documented as of this encounter Visit Diagnoses Not on filedocumented in this encounter Care Teams Substance Addiction Coordinator Relationship Specialty Start Date End Date Orion Vaca MD [address] [address] PCP - General 07/05/17 Vidhi Lutz MD [address] [place] [address], [facility] 203 [place] [address] [email or web address] Historical LMR Provider 07/07/17 Orion Vaca MD [address] [address] Historical LMR Provider 07/07/17 2 documented as of this encounter Additional Source Comments The information contained in this document represents components of the legal health record. It is not the complete legal health record.[facility]
--- OUTSIDE RECORDS SUMMARY | 2025-06-18 11:50 | XMS_ITS | Encounter Summary ---
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 Procedures evaluate & treat Juana Kruse PA Phone: tel: fax: [address] [address] Phone: tel: Referral ID Status Reason Start Date Expiration Date Visits Re quested Visits Authorized [id number] Closed 09/23/2021 09/16/2022 99 99 Encounter Details Date Type Department Care Team (Latest Contact Info) Description 06/27/2021 Transcribe Orders [facility] [address] [place] [address] Juana Kruse PA 10 [place] [address] Encounter for rehabilitation (Primary Dx) Social History [...] Description 08/03/2025 9:15 AM EST Office Visit [facility] [address] [place] [address] Unknown, Unknown, Juana Peter PA-C [address] [address] [email or web address] Scheduled Referrals Name Type Priority Associated Diagnoses Orde r Schedule Ambulatory referral to [facility] Physical Therapy Outpatient Referral Routine Encounter for rehabilitation Ordered: 06/27/2021 documented as of this encounter Visit Diagnoses Diagnosis Encounter for rehabilitation- Primary documented in this encounter Care Teams Soil Conservation Aide Relationship Specialty Start Date End Date Orion Vaca MD [address] [place] [address] PCP - General 07/05/17 Vidhi Lutz MD [address] [place] [address], [facility] 203 [place] [address] Historical LMR Provider 07/07/17 Orion Vaca MD [address] [place] [address] Historical LMR Provider 07/07/17 2 documented as of this encounter Additional Source Comments The information contained in this document represents components of the legal health record. It is not the complete legal health record.[facility]
--- OUTSIDE RECORDS SUMMARY | 2025-06-18 11:50 | XMS_ITS | Encounter Summary ---
Author Organization [facility] Address [address] [place] [address] Phone Care Team Providers Care Neurology Tech Name Role Phone Orion Vaca MD Primary Care Provider [phone] Vidhi Lutz MD Unavailable Orion Vaca MD Unavailable [phone] Encounter Details Date Type Department Care Team (Latest Contact Info) Description 12/10/2018 Transcribe Orders [facility] [address] [address] Juana Kruse PA 10 [place] [address] GERD with esophagitis (Primary Dx); Iron deficiency [...] Description 08/03/2025 9:15 AM EST Office Visit [facility] 10 [place] [address] Unknown, Unknown, Juana Peter PA-C [address] [address] [email or web address] documented as of this encounter Results * (ABNORMAL) Ferritin (12/10/2018 11:12 AM EDT) FERRITIN 189(H) 13 - 150 ug/L [facility] Blood 12/10/2018 11:1 2 AM EDT 12/10/2018 11:27 AM EDT us Juana ASHER LAB BLOOD ORDERABLES Final Result Performing Organization Address City/[facility]/ZIP Co de Phone Number [address] [address] * TSH (12/10/2018 11:12 AM EDT) TSH 1.93 0.27 - 4.20 uIU/mL [facility] Blood 12/10/2018 11:1 2 AM EDT 12/10/2018 11:27 AM EDT us Juana ASHER LAB BLOOD ORDERABLES Final Result [address] [address] * Iron and iron binding capacity (12/10/2018 11:12 AM EDT) IRON 100 30 - 160 ug/dL [facility] IRON BINDING CAPACITY 272 228 - 428 ug/dL [facility] TRANSFERRIN SATURAT. 37 15 - 50 % [facility] Blood 12/10/2018 11:1 2 AM EDT 12/10/2018 11:27 AM EDT us Juana ASHER LAB BLOOD ORDERABLES Final Result Performing Organization Address [facility] Co de Phone Number [address] [address] * (ABNORMAL) CBC (12/10/2018 11:12 AM EDT) WBC 5.93 3.40 - 11.20 K/uL [facility] RBC 4.82(H) 3.80 - 4.80 M/uL [facility] HGB 14.3 12.0 - 15.0 g/dL [facility] HCT 42.7 36.0 - 46.0 % [facility] PLT 221 130 - 400 K/uL [facility] MCV 88.6 79.0 - 98.0 fL [facility] MCH 29.7 27.0 - 34.8 pg [facility] MCHC 33.5 31.5 - 36.0 g/dL [facility] RDW 12.7 10.8 - 14.6 % [facility] MPV 10.4 9.4 - 12.4 fl [facility] NRBC 0.00 0.00 /100 WBCs [facility] ABSOLUTE NRBC 0.00 0.00 K/uL [facility] Blood 12/10/2018 11:1 2 AM EDT 12/10/2018 11:27 AM EDT us Juana ASHER LAB BLOOD ORDERABLES Final Result Performing Organization Address [facility] Co de Phone Number [address] [address] documented in this encounter Visit Diagnoses Diagnosis GERD with esophagitis- Primary Iron deficiency anemia, unspecified iron deficiency anemia type documented in this encounter Care Teams Neurology Tech Relationship Specialty Start Date End Date Orion Vaca MD [address] [place] [address] PCP - General 07/05/17 Vidhi Lutz MD [address] [facility], [address] [place] [address] [email or web address] Historical LMR Provider 07/07/17 Orion Vaca MD [address] [place] [address] Historical LMR Provider 07/07/17 2 documented as of this encounter Additional Source Comments The information contained in this document represents components of the legal health record. It is not the complete legal health record.[facility]
--- OUTSIDE RECORDS SUMMARY | 2025-06-18 11:50 | XMS_ITS | Encounter Summary ---
Author Organization [facility] Address [address] [place] [address] Phone Care Team Providers Care Aerobics Instructor Name Role Phone Orion Vaca MD Primary Care Provider [phone] Vidhi Lutz MD Unavailable [phone] Encounter Details Date Type Department Care Team (Late st Contact Info) Description 01/17/2024 Procedure Pass [facility] Endoscopy Admitting Dept Virtual Department 30 [place], [place] [id number] Social History Tobacco Use Types Packs/Day Years [...] Description 08/03/2025 9:15 AM EST Office Visit [facility] Gastroenterology Clinic 10 [place] [address] Unknown, Unknown, Juana Peter PA-C [address] [address] [email or web address] documented as of this encounter Visit Diagnoses Not on filedocumented in this encounter Care Teams Aerobics Instructor Relationship Specialty Start Date End Date Orion Vaca MD [address] [place] [address] PCP - General 07/05/17 Vidhi Lutz MD [address] [place] [address], [facility] 203 [place] [address] [email or web address] Historical LMR Provider 07/07/17 documented as of this encounter Additional Source Comments The information contained in this document represents components of the legal health record. It is not the complete legal health record.[facility]
--- OUTSIDE RECORDS SUMMARY | 2025-06-18 11:50 | XMS_ITS | Encounter Summary ---
Author Organization [facility] Address [address] [place] [address] Phone Care Team Providers Care Stationary Fireman Name Role Phone Orion Vaca MD Primary Care Provider [phone] Vidhi Lutz MD Unavailable [phone] Encounter Details Date Type Department Care Team (Latest Contact Info) Description 12/12/2023 Transcribe Orders [facility] Laboratory [address] [id number] Juana Kruse PA 10 [place] [address] Diarrhea, unspecified type (Primary Dx) Social History [...] Description 08/03/2025 9:15 AM EST Office Visit [facility] Gastroenterology Clinic 10 [place] [address] Unknown, Unknown, Juana Peter PA-C [address] [address] [email or web address] documented as of this encounter Results * Lipase (12/12/2023 9:13 AM EDT) LIPASE 26 16 - 63 U/L [facility] Blood 12/12/2023 9:13 AM EDT 12/12/2023 9:16 AM EDT us Juana ASHER LAB BLOOD ORDERABLES Final Result [address] [address] * (ABNORMAL) Comprehensive metabolic panel (12/12/2023 9:13 AM EDT) SODIUM 138 133 - 146 mmol/L [facility] POTASSIUM 4.1 3.3 - 5.1 mmol/L [facility] CHLORIDE 100 96 - 108 mmol/L [facility] CO2 29 21 - 35 mmol/L [facility] BUN 10 6 - 19 mg/dL [facility] CREATININE 0.80 0.5 - 1.5 mg/dL [facility] GLUCOSE 103(H) 70 - 99 mg/dL [facility] ALBUMIN 4.2 3.9 - 4.8 g/dL [facility] TOTAL PROTEIN 7.6 6.5 - 8.0 g/dL [facility] CALCIUM 9.2 8.4 - 10.3 mg/dL [facility] ALKALINE PHOSPHATASE 88 39 - 117 U/L [facility] TOTAL BILIRUBIN 0.5 0.0 - 1.2 mg/dL [facility] AST 27 0 - 37 U/L [facility] ALT 17 0 - 40 U/L [facility] GLOBULIN 3.4 1 - 4.8 g/dL [facility] EGFR 77 >59 mL/min/1.7 3m2 [facility] Comment:Estimated glomerular filtration rate calculated using the CKD-EPI refit equation. ANION GAP 13 10 - 20 mmol/L [facility] Blood 12/12/2023 9:13 AM EDT 12/12/2023 9:16 AM EDT us Juana ASHER LAB BLOOD ORDERABLES Final Result Performing Organization Address City/State/[facility] Co de Phone Number [facility] 30 [place] [address] * CBC and differential (12/12/2023 9:13 AM EDT) WBC 4.65 4.00 - 11.00 K/uL [facility] RBC 4.84 3.72 - 5.30 M/uL [facility] HGB 13.7 11.4 - 15.9 g/dL [facility] HCT 42.0 34.2 - 46.8 % [facility] PLT 254 140 - 430 K/uL [facility] MCV 86.8 78.0 - 97.0 fL [facility] MCH 28.3 25.0 - 33.0 pg [facility] MCHC 32.6 32.0 - 36.0 g/dL [facility] RDW 12.4 11.0 - 16.0 % [facility] MPV 9.7 8.4 - 12.8 fl [facility] DIFF METHOD Auto [facility] NEUTS 48.3 43.0 - 75.0 % [facility] LYMPHS 35.9 18.2 - 47.4 % [facility] MONOS 10.8 4.00 - 11.00 % [facility] EOS 3.9 0.0 - 8.0 % [facility] BASOS 0.9 0.0 - 2.0 % [facility] Granulocytes, immature (%) 0.2 0.0 - 0.9 % [facility] ABSOLUTE NEUTS 2.25 1.80 - 7.70 K/uL [facility] ABSOLUTE LYMPHS 1.67 1.00 - 3.10 K/uL [facility] ABSOLUTE MONOS 0.50 0.20 - 0.80 K/uL [facility] ABSOLUTE EOS 0.18 0.00 - 0.80 K/uL [facility] ABSOLUTE BASOS 0.04 0.00 - 0.09 K/uL [facility] Granulocytes, immature 0.01 0.00 - 0.05 K/uL [facility] Blood 12/12/2023 9:13 AM EDT 12/12/2023 9:16 AM EDT us Juana ASHER LAB BLOOD ORDERABLES Final Result [facility] 30 [place] [address] documented in this encounter Visit Diagnoses Diagnosis Diarrhea, unspecified type- Primary documented in this encounter Care Teams Stationary Fireman Relationship Specialty Start Date End Date Orion Vaca MD [address] [address] PCP - General 07/05/17 Vidhi Lutz MD 22 [facility], [address] [place] [address] [email or web address] Historical LMR Provider 07/07/17 documented as of this encounter Additional Source Comments The information contained in this document represents components of the legal health record. It is not the complete legal health record.[facility]
--- OUTSIDE RECORDS SUMMARY | 2025-06-18 11:51 | XMS_ITS | Encounter Summary ---
Author Organization [employer] [facility] Address [address] [place] [address] Phone Care Team Providers Care Plumber'S Helper Name Role Phone Orion Vaca MD Primary Care Provider [phone] Vidhi Lutz MD Unavailable [phone] Encounter Details Date Type Department Care Team (Late st Contact Info) Description 07/02/2024 Procedure Pass [facility], Ct Scan - [address] [address] Social History Tobacco Use Types Packs/Day Years [...] 08/03/2025 9:15 AM EST Office Visit [facility] Gastroenterology Clinic 10 [place] [address] Unknown, Unknown, Juana Peter PA-C [address] [address] documented as of this encounter Visit Diagnoses Not on filedocumented in this encounter Care Teams Plumber'S Helper Relationship Specialty Start Date End Date Orion Vaca MD [address] [place] [address] PCP - General 07/05/17 Vidhi Lutz MD 22 [facility] 203 [place] [address] Historical LMR Provider 07/07/17 documented as of this encounter Additional Source Comments The information contained in this document represents components of the legal health record. It is not the complete legal health record.[facility]
--- OUTSIDE RECORDS SUMMARY | 2025-06-18 11:51 | XMS_ITS | Encounter Summary ---
Author Organization [facility] Address [address] [place] [address] Phone Care Team Providers Care Coverstitch Binder Name Role Phone Orion Vaca MD Primary Care Provider [phone] Vidhi Lutz MD Unavailable [phone] Encounter Details Date Type Department Care Team (Latest Contact Info) Description 03/02/2025 Transcribe Orders [facility] Laboratory [address] [phone] Juana Kruse PA 10 [place] [address] Slow transit constipation (Primary Dx); Abdominal pain, [...] Description 08/03/2025 9:15 AM EST Office Visit [facility] Gastroenterology Clinic [address] [place] [address] Unknown, Unknown, Juana Peter PA-C [address] [place] [address] [email or web address] documented as of this encounter Results * Iron and iron binding capacity (03/16/2025 2:51 PM EDT) Pathologist [facility] IRON 73 30 - 160 ug/dL [facility] IRON BINDING CAPACITY 285 228 - 428 ug/dL [facility] TRANSFERRIN SATURAT. 26 15 - 50 % [facility] Blood 03/16/2025 2:51 PM EDT 03/16/2025 2:56 PM EDT us Juana ASHER LAB BLOOD ORDERABLES Final Result [facility] 30 [place] [address] * CBC (03/16/2025 2:51 PM EDT) WBC 4.21 4.00 - 11.00 K/uL [facility] RBC 4.12 4.00 - 5.20 M/uL [facility] HGB 12.2 12.0 - 16.0 g/dL [facility] HCT 37.5 36.0 - 46.0 % [facility] PLT 190 150 - 450 K/uL [facility] MCV 91.0 80.0 - 100.0 fL [facility] MCH 29.6 27.0 - 31.0 pg [facility] MCHC 32.5 32.0 - 36.0 g/dL [facility] RDW 12.9 11.5 - 14.5 % [facility] MPV 10.7 8.4 - 12.0 fL [facility] NRBC 0.00 0.00 /100 WBCs [facility] ABSOLUTE NRBC 0.00 0.00 K/uL [facility] Blood 03/16/2025 2:51 PM EDT 03/16/2025 2:56 PM EDT Juana ASHER LAB BLOOD ORDERABLES Final Result [address] [address] * (ABNORMAL) Immunoglobulin A (03/16/2025 2:51 PM EDT) IgA 426(H) 70 - 400 mg/dL [facility] Blood 03/16/2025 2:51 PM EDT 03/16/2025 2:56 PM EDT Juana ASHER LAB BLOOD ORDERABLES Final Result [address] [address] * Tissue transglutaminase IgA (03/16/2025 2:51 PM EDT) TTG IGA ANTIBODY <1.2 <4.0 (Negative) U/mL [facility] Blood 03/16/2025 2:51 PM EDT 03/16/2025 2:57 PM EDT us Juana ASHER LAB BLOOD ORDERABLES Final Result [facility] [address] [place] [address] documented in this encounter Visit Diagnoses Diagnosis Slow transit constipation- Primary Abdominal pain, right upper quadrant documented in this encounter Care Teams Coverstitch Binder Relationship Specialty Start Date End Date Orion Vaca MD [address] [address] PCP - General 07/05/17 Vidhi Lutz MD 22 [facility], [address] [place] [address] [email or web address] Historical LMR Provider 07/07/17 documented as of this encounter Additional Source Comments The information contained in this document represents components of the legal health record. It is not the complete legal health record.[facility]
--- OUTSIDE RECORDS SUMMARY | 2025-06-18 11:51 | XMS_ITS | Clinical Summary ---
Author Organization [facility] Address [address] [place] [address] Phone Care Team Providers Care Assistant Professor Of Geography Name Role Phone Halina South MD Primary Care Provider [phone] Vidhi Lutz MD Unavailable [phone] Allergies Active Allergy Reactions Criticality Noted Date [...] from reading book written by Dr Dany Flroes Full catastrophe living regimen strategies for patients [...] Drug allergy 08/05/2008 Overview (11/07/2014): Drug allergy Social History Tobacco Use Types Packs/Day Years [...] 01/16/2024 8:48 AM EDT Plan of Treatment Upcoming Encounters Date Type Department Care Team ([facility] st Contact Info) Description 08/03/2025 9:15 AM EST Office Visit [facility] Gastroenterology Clinic 10 [place] [address] Unknown, Unknown, Juana Peter, [place] 10 [facility] 2 [place] [address] [email or web address] Maintenance Due Date Last Done Comments [...] 75+ series) 2024 INFLUENZA VACCINE (#1) 2025 , 07/10/2022, 06/13/2021, Additional history exists COVID-19 VACCINE ( season) 2025 07/28/2022, 06/18/2022, 03/10/2022, Additional history [...] Procedure Name Priority Date/Time Associated Diagnosis Comments HC BLOOD OCCULT FECAL HGB DETER IA QUAL FECES 1-3 Routine 03/04/2025 1:50 PM EDT Slow transit constipation Abdominal pain, right upper quadrant ENDOSCOPY, COLON 01/17/2024 8:38 AM EDT TSH Routine 07/04/2019 11:30 AM EDT Reflux esophagitis Other iron deficiency anemia from Last 3 Months or Most Recently Relevant to Health Maintenance Results * Fecal immunochemical test x1 (FIT) (03/04/2025 1:50 PM EDT) Immuno Fecal Occult Negative Negative [facility] Stool (Stool) 03/04/2025 1:5 0 PM EDT 03/04/2025 3:13 PM EDT Juana ASHER BODY FLUIDS AND STOOLS SHEREEN OWENS Final Result [address] [address] * ENDOSCOPY, COLON (01/17/2024 8:38 AM EDT) Narrative Transcriptions Arnoldo Figueroa MD - 01/17/2024 8:38 AM EDT [facility] Patient Name: Rafaela Althea Attending MD:: ARNOLDO FIGUEROA MD, Procedure Date: 01/17/2024 8:38 AM Date of : 1950 Age: 73 Admit Type: Outpatient Gender: Female Room: [facility] 05 Referring MD: HALINA SOUTH Exam Type: Colonoscopy [...] monitored continuously. The Olympus adult variable colonoscope [id number] #2 was introduced through the anus and [...] 8:38 AM Procedure Code(s): --- Professional --- 45682, Colonoscopy, flexible; with removal of tumor(s), polyp(s), or other lesion(s) by snare technique --- Technical --- 94858, Colonoscopy, flexible; with removal of tumor(s), polyp(s), [...] congenital malformations of intestine CPT copyright 2021 [employer]. All rights reserved. The codes documented in this report are preliminary and upon hcc coders reviewmay be revised to meet current compliance requirements. Procedure Date: 01/17/2024 8:38:[address] [place] [address] us Halina South MD GI PROCEDURE ORDERABLES F inal Result * TSH (07/04/2019 11:30 AM EDT) TSH 1.15 0.27 - 4.20 uIU/mL [facility] Blood 07/04/2019 11:3 0 AM EDT 07/04/2019 11:47 AM EDT us Juana ASHER LAB BLOOD ORDERABLES Final Result [facility] 30 [place] [address] from Last 3 Months or Most Recently Relevant to Health Maintenance Insurance MEDICARE PART A & B [employer] MEDICARE SUPPLEMENT MEDICARE PART A & B [employer] MEDICARE SUPPLEMENT MEDICARE PART A & B FOR LIFE MEDICARE SUPPLEMENT MEDICARE PART A & B [employer] MEDICARE SUPPLEMENT MEDICARE PART A & B [employer] MEDICARE SUPPLEMENT MEDICARE PART A & B FOR LIFE MEDICARE SUPPLEMENT [address] [place], [place] [address] MEDICARE PART A & B FOR [employer] MEDICARE SUPPLEMENT MEDICARE PART A & B [employer] MEDICARE SUPPLEMENT MEDICARE PART A & B [employer] MEDICARE SUPPLEMENT Care Teams Assistant Professor Of Geography Relationship Specialty Start Date End Date Halina South MD [address] [place] [address] PCP - General 07/05/17 Vidhi Lutz MD [address] [place] [address], [address] [place] [address] [email or web address] Historical LMR Provider 07/07/17 Additional Source Comments The information contained in this document represents components of the legal health record. It is not the complete legal health record.[facility]
--- OUTSIDE RECORDS SUMMARY | 2025-06-18 11:51 | XMS_ITS | Encounter Summary ---
Author Organization [facility] Address [address] [place] [address] Phone Care Team Providers Care Seals Engraver Name Role Phone Orion Vaca MD Primary Care Provider [phone] Vidhi Lutz MD Unavailable Orion Vaca MD Unavailable [phone] Reason for Referral * MRI/CAT Scan - Closed Specialty Diagnoses / Procedures Referred By Remigio macedo Referred To Contact Radiology Diagnoses Other allergic rhinitis Nasal congestion Procedures CT Face Khris Golden MD Phone: tel: fax: [email or web address] Referral ID Status Reason Start Date Expiration Date Visits Re quested Visits Authorized [id number] Closed 08/07/2017 08/07/2018 1 1 Encounter Details Date Type Department Care Team (Late st Contact Info) Description 08/07/2017 Ancillary Orders Virtual Department 30 [place] [address] Khris Golden MD 100 [facility] [place], [address] [place] [address] [email or web address] Other allergic rhinitis; Nasal congestion Social History [...] Description 08/03/2025 9:15 AM EST Office Visit [facility] Gastroenterology Clinic 10 [place] [address] Unknown, Unknown, Juana Peter PA-C [address] [address] [email or web address] documented as of this encounter Results * CT FACE WITHOUT CONTRAST (11/06/2017 10:38 AM EST) Anatomical Region Laterality Modality Face Computed Tomogra phy 11/06/2017 10:3 4 AM EST Impressions 11/06/2017 10:39 AM EST Chronic left sphenoid sinus disease. TOTAL CTDIvol: 21.6 mGy POS - [id number] Narrative 11/06/2017 10:39 AM EST COMPARISON: None. [...] disease. TOTAL CTDIvol: 21.6 mGy POS - [id number] Khris Golden MD IMG CT HEAD/NECK Final R esult documented in this encounter Visit Diagnoses Diagnosis Other allergic rhinitis Nasal congestion Other diseases of nasal cavity and sinuses Other allergic rhinitis Nasal congestion Other diseases of nasal cavity and sinuses documented in this encounter Care Teams Seals Engraver Relationship Specialty Start Date End Date Orion Vaca MD [address] [address] PCP - General 07/05/17 Vidhi Lutz MD 22 [facility] 203 [place] [address] [email or web address] Historical LMR Provider 07/07/17 Orion Vaca MD [address] [address] Historical LMR Provider 07/07/17 2 documented as of this encounter Additional Source Comments The information contained in this document represents components of the legal health record. It is not the complete legal health record.[facility]
--- OUTSIDE RECORDS SUMMARY | 2025-06-18 11:51 | XMS_ITS | Encounter Summary ---
Author Organization [facility] Address [address] [place] [address] Phone Care Team Providers Care Security Investigator Name Role Phone Orion Vaca MD Primary Care Provider [phone] Vidhi Lutz MD Unavailable [phone] Encounter Details Date Type Department Care Team (Latest Contact Info) Description 07/18/[address] [facility] Laboratory [address] 2[address] Floor [place], [place] [phone] Catarino Figueroa MD 10 Main [facility] 2 [place] [address] [email or web address] Weight loss (Primary Dx); Constipation, unspecified constipation [...] Office Visit [facility] Gastroenterology Clinic [address] [place] [address] Unknown, Unknown, Juana Peter PA-C [address] [place] [address] [email or web address] documented as of this encounter Results * (ABNORMAL) Comprehensive metabolic panel (07/18/2024 9:52 AM EDT) SODIUM 134 133 - 146 mmol/L [facility] POTASSIUM 3.8 3.3 - 5.1 mmol/L [facility] CHLORIDE 99 96 - 108 mmol/L [facility] CO2 25 21 - 35 mmol/L [facility] BUN 13 6 - 19 mg/dL [facility] CREATININE 0.80 0.5 - 1.5 mg/dL [facility] GLUCOSE 90 70 - 99 mg/dL [facility] ALBUMIN 3.6(L) 3.9 - 4.8 g/dL [facility] TOTAL PROTEIN 6.5 6.5 - 8.0 g/dL [facility] CALCIUM 8.2(L) 8.4 - 10.3 mg/dL [facility] ALKALINE PHOSPHATASE 50 39 - 117 U/L [facility] TOTAL BILIRUBIN 0.7 0.0 - 1.2 mg/dL [facility] AST 20 0 - 37 U/L [facility] ALT 13 0 - 40 U/L [facility] GLOBULIN 2.9 1 - 4.8 g/dL [facility] EGFR 77 >59 mL/min/1.7 3m2 [facility] Comment:Estimated glomerular filtration rate calculated using the CKD-EPI refit equation. ANION GAP 14 10 - 20 mmol/L [facility] Blood 07/18/2024 9:52 AM EDT 07/18/2024 10:04 AM EDT us Catarino Figueroa MD LAB BLOOD ORDERABLES Final Result Performing Organization Address City/State/[facility] Co de Phone Number [address] [address] * CBC (07/18/2024 9:52 AM EDT) WBC 6.40 4.00 - 11.00 K/uL [facility] RBC 4.35 4.00 - 5.20 M/uL [facility] HGB 12.7 12.0 - 16.0 g/dL [facility] HCT 37.9 36.0 - 46.0 % [facility] PLT 202 150 - 450 K/uL [facility] MCV 87.1 80.0 - 100.0 fL [facility] MCH 29.2 27.0 - 31.0 pg [facility] MCHC 33.5 32.0 - 36.0 g/dL [facility] RDW 12.8 11.5 - 14.5 % [facility] MPV 10.2 8.4 - 12.0 fL [facility] NRBC 0.00 0.00 /100 WBCs [facility] ABSOLUTE NRBC 0.00 0.00 K/uL [facility] Blood 07/18/2024 9:52 AM EDT 07/18/2024 10:04 AM EDT us Catarino Figueroa MD LAB BLOOD ORDERABLES Final Result Performing Organization Address City/[facility]/ZIP Co de Phone Number [address] [address] * Immunoglobulin A (07/18/2024 9:52 AM EDT) IgA 390 70 - 400 mg/dL [facility] Blood 07/18/2024 9:52 AM EDT 07/18/2024 10:04 AM EDT us Catarino Figueroa MD LAB BLOOD ORDERABLES Final Result Performing Organization Address [facility] Co de Phone Number [facility] [address] [place] [address] * Tissue transglutaminase IgA (07/18/2024 9:52 AM EDT) TTG IGA ANTIBODY <1.2 <4.0 (Negative) U/mL [facility] Blood 07/18/2024 9:52 AM EDT 07/18/2024 10:04 AM EDT Catarino Figueroa MD LAB BLOOD ORDERABLES Final Result Performing Organization Address [facility] de Phone Number [facility] [place] [address] documented in this encounter Visit Diagnoses Diagnosis Weight loss- Primary Loss of weight Constipation, unspecified constipation type documented in this encounter Care Teams Security Investigator Relationship Specialty Start Date End Date Orion Vaca MD [address] [place] [address] PCP - General 07/05/17 Vidhi Lutz MD 22 [facility] 203 [place] [address] Historical LMR Provider 07/07/17 documented as of this encounter Additional Source Comments The information contained in this document represents components of the legal health record. It is not the complete legal health record.[facility]
== END 2025-06-18 10:22 | disposition home or self-care (01) ==
LOC: HO.MRI 10:21
PROVIDERS: PCP Internal Medicine; Visit Provider Nurse Practitioner Family
DX: R26.9 Unspecified abnormalities of gait and mobility (principal); R51.9 Headache, unspecified; R41.3 Other amnesia
CPT/HCPCS: 70551

== ENCOUNTER → 2025-06-18 10:21 | Outpatient (BNV) | payer MEDICARE, OTHER, SELFPAY | PROVIDERS: PCP Internal Medicine; Visit Provider Radiology Diagnostic Radiology | DX: R26.9 Unspecified abnormalities of gait and mobility (principal) | CPT/HCPCS: 70551 ==

== ENCOUNTER 2025-08-25 13:07 | Outpatient (AMB) | payer MEDICARE, OTHER, SELFPAY ==
[2025-08-25 13:09] VITALS: BP 110/70; PULSE 65; O2SAT 99; BMI 20.7
--- NOTE | 2025-08-25 13:09 | A.OFFVIS_ITS ---
Vital Signs 08/25/25 13:09 Height 5 ft 7 in Weight 132 lb BMI 20.7 BP 110/70 Blood Pressure Location Rt brachial Position Sitting Pulse 65 Pulse Source Pulse Oximeter Pulse Oximetry (%) 99 Oxygen Delivery Method Room Air Intake Visit Reasons: 6m follow up Alterations Manager Required: No Accompanied by: Self / Same As Patient Allergies Gadolinium-Containing Contrast Medi Allergy (Intermediate, Verified 08/25/25 13:13) heart racing Latex, Natural Rubber Allergy (Mild, Verified 08/25/25 13:13) unknown erythromycin base (Erythromycin Base) Allergy (Unknown, Verified 08/25/25 13:13) ITCH/HIVES eugenol (Eugenol) Allergy (Unknown, Verified 08/25/25 13:13) HEART RACING/FAINTING levofloxacin (From Levaquin) Allergy (Unknown, Verified 08/25/25 13:13) ITCHING penicillin G (Penicillin G) Allergy (Unknown, Verified 08/25/25 13:13) ITCH/HIVES sulfamethoxazole (From Bactrim) Allergy (Unknown, Verified 08/25/25 13:13) ITCH/HIVES trimethoprim (From Bactrim) Allergy (Unknown, Verified 08/25/25 13:13) ITCH/HIVES epinephrine (Epinephrine) Adverse Reaction (Unknown, Verified 08/25/25 13:13) TACHYCARDIA, FEELING FAINT From Novocain Adverse Reaction (Unknown, Uncoded 08/25/25 13:13) TACHYCARDIA, FEELING FAINT Medication List - Last Reconciled 08/25/25 by JEREMY Russell albuterol sulfate 90 mcg/actuation (ProAir HFA) 2 puffs inhalation Q6H PRN alprazolam (Xanax) 0.5 - 1 mg (1 - 2 x 0.5 mg) PO BEDTIME PRN 30 days clonazepam (Klonopin) 0.25 - 0.5 mg orally 1 hr before MRI, and may repeat x's 1; 1 day MDD 2 tabs coenzyme Q10 400 mg PO DAILY 90 days epinephrine 0.3 mg IM Q4H PRN famotidine 40 mg PO DAILY fluticasone propionate 50 mcg/actuation (Flonase Allergy Relief) 1 spray intranasal DAILY fluvoxamine 50 mg PO DAILY hydralazine 10 mg PO DAILY levocetirizine (Xyzal) 5 mg PO DAILY levothyroxine (Synthroid) 88 mcg PO DAILY magnesium oxide 400 mg PO BEDTIME 90 days metoprolol succinate ER 50 mg PO DAILY ondansetron 4 mg PO Q8H PRN riboflavin (vitamin B2) 400 mg PO DAILY 90 days tretinoin 0.05% 1 appl topical BEDTIME HPI Comments Details: 75-yr-old female presents for f/u visit of neuralgia and RLS. 06/18/2025: MR/MR head/brain wo con IMPRESSION: No acute stroke/nonhemorrhagic ischemia or acute brain abnormality. Nonspecific right frontal white matter T2 FLAIR signal foci. 10 mm polypoid signal, left sphenoid sinus. She went to the in-lab sleep study, but could not do it- due to having a runny nose and being a late sleeper. She states they suggested she do a HST instead. Interval history: * Patient states that she was unable to see GI, as they require the referral to come form her PCP's office. * Also endorses acid reflux * States her constipation has improved, not fully but better, since eating a Kiwi daily. * She reports that her restless leg symptoms feel better * However, she has been having new episodes of burping followed by a feeling of lightheadedness (even when sitting). And one time, she bent over which triggered lightheadedness, and was hesitant to get up. * These episodes can be a/w flushing * The episodes can last about 30 minutes, and seem to resolve after taking a nap * She notes decreased appetite as well as osmophobia * She continues to have a headache every few days or once a week- always deep within and in between her eyebrows- not necessarily associated with the burping and lightheadedness sensation * She did not tolerate the supplements given to her last visit- states these caused further GI upset * She saw ENT yesterday, who told her that she has migraines. 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 06/02/2025, HPI: Interval labs: B12, iron, B6, folate - WNL. Patient reports she has been noticing increased tiredness- now sleeping 10-12 hours. Has some snoring. States that Dr Vaca suggested she consider having a sleep study. She has also noticed some episodes of orthostatic lightheadedness. For example, once when having a bowel movement, she was a bit constipated, and when she stood up, she felt off-balance and was very unsteady, like she could not stand up straight. She has also been having a few episodes of orthostatic off-balance sensation over the past 4 months. In the office today, she bends forward, which triggers transient lightheadedness\ She states that she only takes the alprazolam at night, feels this is out of her system by the next day, and she does not think it is contributing to her balance difficulties. She is drinking a lot of water with/ electrolytes in it. She also had a recent [facility] eval for severe abdominal pain. Has been having increased pain for a couple of weeks. She states she has not been able to get to see her GI in [place]. She has chronic constipation. Tries to manage with Miralax. Urinates frequently, feels lower abdominal pressure. Denies dysuria. [facility] work-up: * Abd CT w/o contrast: Thick-walled urinary bladder, which may be due to underdistention or cystitis. * No evidence of diverticulitis. No significant diverticular disease of the colon. * UA- negative She also reports she was recently stung by ? a wasp- had LUE pain, swelling on her LUE and back. Denies SOB. 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 [facility] states that they would not give her the EPI-Pen refill due to the listed Bactrim allergy; however, the patient does not recall taking this medication. She also has been having increased deep pressure headaches in the frontal region and ears, a/w increased difficulty concentrating. Reports chronic left ear tinnitus/inner ear popping sensation, but now has bilateral tinnitus/inner ear popping sensation. She is still having burning pains in her bilateral feet, more so than in her hands. She saw a grey washer, who advised her to try PT for balance, but she put this on hold due to her GI s/s. She is still experiencing cognitive fogginess, such as looking in the wrong drawer and word swapping. [facility] Medical History (Updated 06/02/25 @ 11:20 by JEREMY Russell) Diverticulitis Osteopenia Anemia H/O malignant neoplasm of thyroid Surgical History Hx of cholecystectomy Hx of appendectomy History of knee replacement H/O total hysterectomy Family History Father Myocardial infarction Stroke Mother Cancer Brother Diabetes Brother Diabetes Social History Alcohol intake: current Alcohol intake frequency: 0-2 drinks per day Patient Tobacco Use Status: Never used Tobacco Physical Exam Vital Signs: Last Vital Signs Pulse 65 08/25/25 13:09 BP 110/70 08/25/25 13:09 Pulse Ox 99 08/25/25 13:09 Oxygen Delivery Method Room Air 08/25/25 13:09 BMI result Body Mass Index 20.7 Const General: cooperative and no acute distress Orientation/consciousness: patient oriented x3 Resp Effort & Inspection: normal respiratory effort and able to speak in complete sentences Neuro General: patient oriented x3 Cranial nerves: Yes CN's II-XII intact bilaterally Cognition (Neuro): normal cognition Psych Appearance: grossly normal Mental Status: mental status grossly normal Speech and movement: Normal speech and movement present Affect: normal affect Attitude: cooperative Results Reviewed Results Reviewed: EXAMINATION: 06/18/25, MR BRAIN WITHOUT CONTRAST CLINICAL INFORMATION: Unspecified abnormalities of gait and mobility. R26.9 COMPARISON: None available. TECHNIQUE: MRI of the brain was obtained using routine sequences without contrast. FINDINGS: Patient's motion artifact. No restricted diffusion. No acute intracranial hemorrhage, mass effect, midline shift, hydrocephalus or herniation. No susceptibility signal abnormality in the substantia nigra. Overton-white matter differentiation is normal. Nonspecific hyperintense T2 FLAIR signal foci within the deep white matter right frontal lobe. Flow-void signal within the main cerebral vessels is normal. Posterior cranial fossa contents demonstrated no signal abnormality or mass effect. There is normal position of the cerebellar tonsils. Sellar/suprasellar region demonstrated no signal abnormality or gross masses. There is a focal, 10 mm intrinsic hyperintense T1 signal within the left sphenoid sinus. Paramagnetic field distortion with fat saturation artifact probably secondary to shimming/chemical shift left maxillary facial region. MR/MR head/brain wo con IMPRESSION: No acute stroke/nonhemorrhagic ischemia or acute brain abnormality. Nonspecific right frontal white matter T2 FLAIR signal foci. 10 mm polypoid signal, left sphenoid sinus. Assessment & Plan Assessment & Plan (1) Paresthesia: Comment: generalized, at rest/night. Likely RLS. 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 Code(s): G62.9 - Polyneuropathy, unspecified Category: Medical (4) Bilateral carpal tunnel syndrome: Code(s): G56.03 - Carpal tunnel syndrome, bilateral upper limbs Category: Medical (5) Sleep difficulties: Code(s): G47.9 - Sleep disorder, unspecified Category: Medical (6) Headache: Code(s): R51.9 - Headache, unspecified Category: Medical Qualifiers: Headache type: unspecified Headache chronicity pattern: episodic headache Intractability: not intractable Qualified Code(s): R51.9 - Headache, unspecified (7) Gait difficulty: Code(s): R26.9 - Unspecified abnormalities of gait and mobility Category: Medical (8) Tinnitus: Code(s): H93.19 - Tinnitus, unspecified ear Category: Medical Qualifiers: Laterality: bilateral Qualified Code(s): H93.13 - Tinnitus, bilateral (9) Snoring: Code(s): R06.83 - Snoring Category: Medical (10) Excessive daytime sleepiness: Code(s): G47.19 - Other hypersomnia Category: Medical Plan For episodes of burping and lightheadedness, headaches: * Reviewed brain MRI w/wo- no findings to account for pt's headaches and other s/s * Will canceled the previously ordered in-lab sleep study- as she was unable to complete it * Instead, will request a Home sleep study to assess for sleep apnea. * Pt will f/u w/ her PCP regarding her request for GI consult for 2nd opinion. * Trial Doxepain 3mg daily at bedtime- may help w/ flushing, headaches, lightheadedness/not right symptoms. * Reviewed common side effects, patient will reach out to us with any untoward effects * Try adding OTC Reflex gourmet (calcium alginate), OTC Pepcid complete (as needed, but avoid excessive use as she is already taking famotidine) * Try sleeping w/ head elevated- may use a sleep apnea or reflux pillow * She stopped B2, Mag, Co-Q 10- caused GI upset * Future considerations an as-needed triptan or G PAP For cognition and mood/anxiety: * Continue psychotherapy * Continue Fluvoxamine 50 mg qhs- for anxiety. * Continue Xanax 0.5-1mg qhs, may take one extra tab per day prn. For neuralgia, BLE pain, and CTS: * Use carpal tunnel splints while sleeping as needed. * PT as ordered * Try foot/ankle exercises- a list of exercises given to the patient. * Follow up with podiatry as scheduled for a known history of tarsal tunnel syndrome. Future considerations: Trying an allergy/MAST cell d/o tx, such as doxepin-, Alpha-Lipoic acid, Lyrica, Horizant in f/u. Ortho consult for carpal tunnel syndrome. Previous trials: Cymbalta, Gabapentin. f/u in 4-6 months or sooner prn Orders: Orders RT home sleep study Today G47.19 - Other hypersomnia, G47.9 - Sleep disorder, unspecified, R06.83 - Snoring Medications: New doxepin (Silenor) 3 mg PO BEDTIME 30 tabs 2RF 30 days Refilled alprazolam (Xanax) and may take 1 extra tab per day prn anxiety 0.5 - 1 mg (1 - 2 x 0.5 mg) PO BEDTIME PRN 90 tabs 4RF anxiety 30 days Discontinued riboflavin (vitamin B2) Discontinued Reason: Patient no longer taking 400 mg PO DAILY 90 days 90 tabs 3RF clonazepam (Klonopin) Discontinued Reason: Patient Completed Course (0.5 - 1 x 0.5 mg) 0.25 - 0.5 mg orally 1 hr before MRI, and may repeat x's 1; 1 day 2 tabs 0RF MDD 2 tabs coenzyme Q10 Daily in a.m.. Take with higher fat food Discontinued Reason: Patient no longer taking 400 mg PO DAILY 90 days 90 caps 3RF magnesium oxide may hold for loose stools Discontinued Reason: Patient no longer taking 400 mg PO BEDTIME 90 days 90 tabs 3RF Coding Level of Care Code Est Pt Level 4 (73526) Diagnoses Paresthesia R20.2 Tarsal tunnel syndrome, bilateral G57.53 Polyneuropathy G62.9 Bilateral carpal tunnel syndrome G56.03 Sleep difficulties G47.9 Nonintractable episodic headache, unspecified headache type R51.9 Headache type: unspecified Headache chronicity pattern: episodic headache Intractability: not intractable Gait difficulty R26.9 Tinnitus of both ears H93.13 Laterality: bilateral Snoring R06.83 Excessive daytime sleepiness G47.19
== END 2025-08-25 14:14 | disposition home or self-care (01) ==
LOC: HO.HSMS 13:07
PROVIDERS: PCP Internal Medicine; Visit Provider Nurse Practitioner Family
DX: R20.2 Paresthesia of skin (principal); G57.53 Tarsal tunnel syndrome, bilateral lower limbs; G62.9 Polyneuropathy, unspecified; G56.03 Carpal tunnel syndrome, bilateral upper limbs; G47.9 Sleep disorder, unspecified; R51.9 Headache, unspecified; R26.9 Unspecified abnormalities of gait and mobility; H93.13 Tinnitus, bilateral; R06.83 Snoring; G47.19 Other hypersomnia
CPT/HCPCS: 99214

== ENCOUNTER → 2025-08-25 13:07 | Outpatient (BNVA) | payer MEDICARE, OTHER, SELFPAY | PROVIDERS: PCP Internal Medicine; Visit Provider Nurse Practitioner Family | DX: M79.2 Neuralgia and neuritis, unspecified (principal); G25.81 Restless legs syndrome; R10.9 Unspecified abdominal pain; K59.09 Other constipation; G47.19 Other hypersomnia; R06.83 Snoring; H93.13 Tinnitus, bilateral; R41.3 Other amnesia; R26.9 Unspecified abnormalities of gait and mobility; R51.9 Headache, unspecified; G47.9 Sleep disorder, unspecified; R20.2 Paresthesia of skin | CPT/HCPCS: 99212 ==